=== PATIENT | female | born 1950 | race Caucasian/White ===

== ENCOUNTER 2017-05-07 18:32 | Inpatient (IN) | payer BC ==
[~2017-05-07 18:32] MED LIST: BUPR-175 PO; IBUP600T26 PO; LORTA10 PO; MUSCLE RELAXER
[2017-05-07] MEDS ORDERED: IOHEXOL 350 MG/ML 10 ML VIAL (for RAD DIAG) IVCONTRAST ONE (18:33)
[2017-05-07 18:45] VITALS: BP 120/80; PULSE 80; RESP 16; TEMP 98.4; O2SAT 98
[2017-05-07 19:27] VITALS: BP 122/56; PULSE 78; RESP 17; TEMP 98.6; O2SAT 97
[2017-05-07] MEDS ORDERED: ZOLO25TA PO (19:38)
[2017-05-07] MEDS ORDERED: TYLETAB34 PO (19:38)
[2017-05-07] MEDS ORDERED: SIMV5TAB3 PO (19:38)
[2017-05-07] MEDS ORDERED: MORPHINE SULFATE 4 MG/ML INJ IV PUSH ONE ×3 (19:45→23:00)
[2017-05-07] MEDS ORDERED: SODIUM CHLORIDE 0.9% FLUSH 10 ML FLUSH IV FLUSH PRN (19:45)
[2017-05-07] MEDS ORDERED: RESP: ALBUTEROL 2.5 MG/IPRATROPIUM 0.5 MG NEB (SCH) INH ONE (19:45)
[2017-05-07] MEDS ORDERED: ONDANSETRON HCL 4 MG/2 ML VIAL IVP ONE (19:45)
--- NOTE | 2017-05-07 19:45 | PD ---
HPI Chief Complaint: Abdominal Pain Time Seen by Provider: 19:36 Travel History International Travel<30 days: No Contact w/Intl Traveler<30days: No Traveled to known affect area: No History of Present Illness HPI Patient comes in complaining of crampy abdominal pain throughout her abdomen she awoke with this morning. Patient states when she woke she was unable stand on her right leg secondary to the pain. Patient's pain radiates to her back and throughout her abdomen. Patient reports associated nonbloody, nonbilious vomiting, and nonbloody diarrhea. Patient denies anything like this in the past. Denies any history of abdominal surgeries. Patient states she's tried taking her Tylenol with Codeine for this along with aspirin with no improvement in her symptoms. Patient has history of COPD but does not take her inhalers regularly. Patient denies any known fevers. Denies any chest pain, shortness of breath out of the ordinary, or headaches. Denies any loss or change in bladder. Denies any recent antibiotic use. PFSH Past Medical History Depression: Yes COPD: Yes Diminished Hearing: No Musculoskeletal: Yes (DEGENERATIVE DISKS) Psychiatric: Yes Respiratory: Yes (COPD) Immunizations Current: Yes Tetanus Vaccination: Unknown Influenza Vaccination: No ?: Not Menopausal: Yes : 0 Past Surgical History Hysterectomy: Yes Social History Alcohol Use: No Tobacco Use: Yes (09/15 PPW) Substance Use: No Allergies-Medications (Allergen,Severity, Reaction): Coded Allergies: No Known Allergies (Verified , 05/07/17) Reported Meds & Prescriptions Reported Meds & Active Scripts Active Reported Tylenol-Codeine #3 (Acetaminophen-Codeine) 300-30 mg Tab 1 Tab PO Q4H PRN Simvastatin 5 Mg Tab 5 Mg PO DAILY Zoloft (Sertraline HCl) 25 Mg Tab 25 Mg PO DAILY Review of Systems Except as stated in HPI: all other systems reviewed are Neg Physical Exam Narrative GENERAL: Well-developed, well nourished, in no acute distress, and non-ill appearing. SKIN: Focused skin assessment warm and dry. HEAD: Atraumatic. Normocephalic. EYES: Pupils equal and round. EOMI. No scleral icterus. No injection or drainage. ENT: No nasal bleeding or discharge. Mucous membranes pink and moist. NECK: Trachea midline. Supple. No nuclear rigidity. CARDIOVASCULAR: Regular rate and rhythm. No murmur appreciated. RESPIRATORY: No accessory muscle use. No respiratory distress. Wheezing noted throughout. Breath sounds equal bilaterally. GASTROINTESTINAL: Abdomen soft, nondistended, and with voluntary guarding. Hepatic and splenic margins not palpable. Hypoactive bowel sounds 4. No pulsatile mass. Patient reports tenderness greatest in the right lower quadrant and McBurney's point. However patient reports tenderness to palpation throughout her abdomen. MUSCULOSKELETAL: No obvious deformities. No clubbing. No cyanosis. No edema. Full range of motion. NEUROLOGICAL: Awake and alert. No obvious cranial nerve deficits. Motor grossly within normal limits. Normal speech. PSYCHIATRIC: Appropriate mood and affect; insight and judgment normal. Data Data Last Documented VS Vital Signs Date Time Temp Pulse Resp B/P (MAP) Pulse Ox O2 Delivery O2 Flow Rate FiO2 05/07/17 20:29 89 Nasal Cannula 2.00 05/07/17 20:23 20 05/07/17 19:27 98.6 78 Orders Orders Complete Blood Count With Diff (05/07/17 19:36) Comprehensive Metabolic Panel (05/07/17 19:36) Lipase (05/07/17 19:36) Lactic Acid (05/07/17 19:36) Prothrombin Time / Inr (Pt) (05/07/17 19:36) Act Partial Throm Time (Ptt) (05/07/17 19:36) Urinalysis - C+S If Indicated (05/07/17 19:36) Ct Abd/Pel W Iv Contrast(Rout) (05/07/17 19:36) Iv Access Insert/Monitor (05/07/17 19:36) Ecg Monitoring (05/07/17 19:36) Oximetry (05/07/17 19:36) NPO (05/07/17 19:36) Morphine Inj (Morphine Inj) (05/07/17 19:45) Ondansetron Inj (Zofran Inj) (05/07/17 19:45) Sodium Chloride 0.9% Flush (Ns Flush) (05/07/17 19:45) Electrocardiogram (05/07/17 19:36) Chest, Single Ap (05/07/17 19:36) Albuterol-Ipratropium Neb (Duoneb Neb) (05/07/17 19:45) Morphine Inj (Morphine Inj) (05/07/17 20:45) Troponin I (05/07/17 19:55) Iohexol 350 Inj (Omnipaque 350 Inj) (05/07/17 18:33) Labs Laboratory Tests Test 05/07/17 19:55 05/07/17 20:50 White Blood Count 14.8 TH/MM3 Red Blood Count 4.63 MIL/MM3 Hemoglobin 13.9 GM/DL Hematocrit 42.5 % Mean Corpuscular Volume 91.7 FL Mean Corpuscular Hemoglobin 29.9 PG Mean Corpuscular Hemoglobin Concent 32.6 % Red Cell Distribution Width 13.8 % Platelet Count 207 TH/MM3 Mean Platelet Volume 8.5 FL Neutrophils (%) (Auto) 90.4 % Lymphocytes (%) (Auto) 4.3 % Monocytes (%) (Auto) 5.0 % Eosinophils (%) (Auto) 0.0 % Basophils (%) (Auto) 0.3 % Neutrophils # (Auto) 13.3 TH/MM3 Lymphocytes # (Auto) 0.6 TH/MM3 Monocytes # (Auto) 0.7 TH/MM3 Eosinophils # (Auto) 0.0 TH/MM3 Basophils # (Auto) 0.0 TH/MM3 CBC Comment DIFF FINAL Differential Comment Prothrombin Time 10.8 SEC Prothromb Time International Ratio 1.0 RATIO Activated Partial Thromboplast Time 25.0 SEC Blood Urea Nitrogen 19 MG/DL Creatinine 1.05 MG/DL Random Glucose 116 MG/DL Total Protein 7.9 GM/DL Albumin 4.1 GM/DL Calcium Level 8.9 MG/DL Alkaline Phosphatase 81 U/L Aspartate Amino Transf (AST/SGOT) 19 U/L Alanine Aminotransferase (ALT/SGPT) 23 U/L Total Bilirubin 0.6 MG/DL Sodium Level 138 MEQ/L Potassium Level 3.4 MEQ/L Chloride Level 105 MEQ/L Carbon Dioxide Level 25.3 MEQ/L Anion Gap 8 MEQ/L Estimat Glomerular Filtration Rate 53 ML/MIN Lactic Acid Level 1.4 mmol/L Troponin I LESS THAN 0.02 NG/ML Lipase 84 U/L Urine Color YELLOW Urine Turbidity HAZY Urine pH 6.0 Urine Specific [place] 1.039 Urine Protein 30 mg/dL Urine Glucose (UA) NEG mg/dL Urine Ketones 10 mg/dL Urine Occult Blood NEG Urine Nitrite NEG Urine Bilirubin NEG Urine Urobilinogen 2.0 MG/DL Urine Leukocyte Esterase NEG Urine RBC 1 /hpf Urine WBC 1 /hpf Urine Squamous Epithelial Cells 6 /hpf Urine Bacteria RARE /hpf Urine Hyaline Casts 3 /lpf Urine Mucus FEW /lpf Microscopic Urinalysis Comment CULT NOT INDICATED MDM Medical Decision Making Medical Screen Exam Complete: Yes Emergency Medical Condition: Yes Differential Diagnosis Appendicitis, ischemic bowel, small bowel obstruction, diverticulitis, electrolyte abnormality, dehydration, ileus, obstipation, other Narrative Course Patient was seen and examined. IV was established. Patient was greater monitored. Initial laboratory and radiological studies were ordered. Laboratory studies were reviewed. Patient was given IV morphine for pain and Zofran for nausea. Patient was signed out to Dr. Castro at the end of my shift pending CT results. Please see her documentation for final diagnosis and disposition. Paul Brice May 07, 2017 19:45
[2017-05-07 20:11] LABS: AUTOMATED NEUTROPHIL # 13.3 TH/MM3 (1.8-7.7); BASOPHIL % 0.3 % (0.0-2.0); HEMATOCRIT 42.5 % (35.0-46.0); HEMO FLAGS DIFF FINAL; LYMPH % 4.3 % (9.0-44.0); LYMPHOCYTE # 0.6 TH/MM3 (1.0-4.8); MEAN CELL VOLUME 91.7 FL (80.0-100.0); MEAN CORPUSCULAR HEMOGLOBIN 29.9 PG (27.0-34.0); MEAN CORPUSCULAR HGB CONC 32.6 % (32.0-36.0); NEUT % 90.4 % (16.0-70.0); PLATELET COUNT 207 TH/MM3 (150-450); RED BLOOD COUNT 4.63 MIL/MM3 (4.00-5.30); RED CELL DISTRIBUTION WIDTH 13.8 % (11.6-17.2); WHITE BLOOD COUNT 14.8 TH/MM3 (4.0-11.0)
[2017-05-07 20:20] LABS: PROTHROMBIN TIME - PATIENT 10.8 SEC (9.8-11.6)
[2017-05-07 20:23] VITALS: RESP 20; O2SAT 89
[2017-05-07 20:29] VITALS: O2SAT 89
[2017-05-07 20:35] LABS: ALT (GPT) 23 U/L (10-53); ANION GAP 8 MEQ/L (5-15); AST (GOT) 19 U/L (15-37); BICARBONATE 25.3 MEQ/L (21.0-32.0); BLOOD UREA NITROGEN 19 MG/DL (7-18); CHLORIDE 105 MEQ/L (98-107); GLOMERULAR FILTRATION RATE 53 ML/MIN (>89); POTASSIUM 3.4 MEQ/L (3.5-5.1); SODIUM (NA) 138 MEQ/L (136-145)
[2017-05-07 20:38] LABS: ALKALINE PHOSPHATASE 81 U/L (45-117); TOTAL BILIRUBIN ADULT 0.6 MG/DL (0.2-1.0)
--- NOTE | 2017-05-07 20:52 | PD ---
Physical Exam Narrative I, Dr. Castro, have reviewed the advance practice practitioner's documentation and am in agreement, met with the patient face to face, made the diagnosis, and the medical decision making was done by me. *My assessment and Findings: Appendicitis vs. colitis vs. atypical ACS 66yo F with lower abdominal pain and nausea and vomiting today. Abdomen is soft with ttp diffusely in lower abdomen. Pt has COPD and has coarse breath sounds bilaterally. Denies any chest pain or sob. Pt given nebulizer treatment. Think that this is her baseline. Although her O2 is at 89% on RA. Pt placed on 2 L NC and appears comfortable. CXR negative. Labs reviewed, leukocytosis at 14.8. Lactic acid 1.4. LFTs normal. Lipase normal. EKG does show ST depressions in V3-V4 and TWI V2. No prior to compare. Added troponin for atypical ACS. Troponin negative. UA negative. CXR negative. CTa/p showed no acute abnormality. Possible small hiatal hernia. Normal appendix. Pt given multiple IV morphine and is still in a lot of pain. States she lives alone, is unable to ambulate due to pain and cannot even stand. Will admit for observation for intractable pain. Discussed with Dr. Cowart's PA and accepted to his service. Data Data Last Documented VS Vital Signs Date Time Temp Pulse Resp B/P (MAP) Pulse Ox O2 Delivery O2 Flow Rate FiO2 05/07/17 23:20 92 18 118/78 (91) 95 Nasal Cannula 2.00 05/07/17 19:27 98.6 Orders Orders Complete Blood Count With Diff (05/07/17 19:36) Comprehensive Metabolic Panel (05/07/17 19:36) Lipase (05/07/17 19:36) Lactic Acid (05/07/17 19:36) Prothrombin Time / Inr (Pt) (05/07/17 19:36) Act Partial Throm Time (Ptt) (05/07/17 19:36) Urinalysis - C+S If Indicated (05/07/17 19:36) Ct Abd/Pel W Iv Contrast(Rout) (05/07/17 19:36) Iv Access Insert/Monitor (05/07/17 19:36) Ecg Monitoring (05/07/17 19:36) Oximetry (05/07/17 19:36) NPO (05/07/17 19:36) Morphine Inj (Morphine Inj) (05/07/17 19:45) Ondansetron Inj (Zofran Inj) (05/07/17 19:45) Sodium Chloride 0.9% Flush (Ns Flush) (05/07/17 19:45) Electrocardiogram (05/07/17 19:36) Chest, Single Ap (05/07/17 19:36) Albuterol-Ipratropium Neb (Duoneb Neb) (05/07/17 19:45) Morphine Inj (Morphine Inj) (05/07/17 20:45) Troponin I (05/07/17 19:55) Iohexol 350 Inj (Omnipaque 350 Inj) (05/07/17 18:33) Morphine Inj (Morphine Inj) (05/07/17 23:00) Admit Order (Ed Use Only) (05/07/17 23:47) Labs Laboratory Tests Test 05/07/17 19:55 05/07/17 20:50 White Blood Count 14.8 TH/MM3 Red Blood Count 4.63 MIL/MM3 Hemoglobin 13.9 GM/DL Hematocrit 42.5 % Mean Corpuscular Volume 91.7 FL Mean Corpuscular Hemoglobin 29.9 PG Mean Corpuscular Hemoglobin Concent 32.6 % Red Cell Distribution Width 13.8 % Platelet Count 207 TH/MM3 Mean Platelet Volume 8.5 FL Neutrophils (%) (Auto) 90.4 % Lymphocytes (%) (Auto) 4.3 % Monocytes (%) (Auto) 5.0 % Eosinophils (%) (Auto) 0.0 % Basophils (%) (Auto) 0.3 % Neutrophils # (Auto) 13.3 TH/MM3 Lymphocytes # (Auto) 0.6 TH/MM3 Monocytes # (Auto) 0.7 TH/MM3 Eosinophils # (Auto) 0.0 TH/MM3 Basophils # (Auto) 0.0 TH/MM3 CBC Comment DIFF FINAL Differential Comment Prothrombin Time 10.8 SEC Prothromb Time International Ratio 1.0 RATIO Activated Partial Thromboplast Time 25.0 SEC Blood Urea Nitrogen 19 MG/DL Creatinine 1.05 MG/DL Random Glucose 116 MG/DL Total Protein 7.9 GM/DL Albumin 4.1 GM/DL Calcium Level 8.9 MG/DL Alkaline Phosphatase 81 U/L Aspartate Amino Transf (AST/SGOT) 19 U/L Alanine Aminotransferase (ALT/SGPT) 23 U/L Total Bilirubin 0.6 MG/DL Sodium Level 138 MEQ/L Potassium Level 3.4 MEQ/L Chloride Level 105 MEQ/L Carbon Dioxide Level 25.3 MEQ/L Anion Gap 8 MEQ/L Estimat Glomerular Filtration Rate 53 ML/MIN Lactic Acid Level 1.4 mmol/L Troponin I LESS THAN 0.02 NG/ML Lipase 84 U/L Urine Color YELLOW Urine Turbidity HAZY Urine pH 6.0 Urine Specific [place] 1.039 Urine Protein 30 mg/dL Urine Glucose (UA) NEG mg/dL Urine Ketones 10 mg/dL Urine Occult Blood NEG Urine Nitrite NEG Urine Bilirubin NEG Urine Urobilinogen 2.0 MG/DL Urine Leukocyte Esterase NEG Urine RBC 1 /hpf Urine WBC 1 /hpf Urine Squamous Epithelial Cells 6 /hpf Urine Bacteria RARE /hpf Urine Hyaline Casts 3 /lpf Urine Mucus FEW /lpf Microscopic Urinalysis Comment CULT NOT INDICATED MDM Supervised Visit with LUPILLO: Yes Diagnosis Primary Impression: Abdominal pain Qualified Codes: R10.30 - Lower abdominal pain, unspecified Admitting Information Admitting Physician Requests: Cori Tripathi DO May 07, 2017 20:52
--- NOTE | 2017-05-07 20:59 | RADRPT ---
EXAM DATE/TIME: 05/07/2017 19:32 [facility] COMPARISON: No previous studies available for comparison. INDICATIONS : Vomiting MEDICAL HISTORY : None. SURGICAL HISTORY : None. ENCOUNTER: Initial ACUITY: 1 day PAIN SCORE: 0/10 LOCATION: chest FINDINGS: A single view of the chest demonstrates the lungs to be symmetrically aerated without evidence of mas s, infiltrate or effusion. The cardiomediastinal contours are unremarkable. Osseous structures are intact. CONCLUSION: Normal examination. Claus Hill MD on May 07, 2017 at 20:57 Board Certified Radiologist. This report was verified electronically.
[2017-05-07 21:23] LABS: BACTERIA, URINE RARE /hpf; BLOOD, URINE NEG (NEG); COMMENT (UR) CULT NOT INDICATED; CULTURE IF INDICATED CULT NOT INDICATED; GLUCOSE,URINE NEG (NEG); HYALINE CAST, URINE 3 /lpf (RARE); KETONE, URINE 10 mg/dL (NEG); MUCUS URINE FEW /lpf (OCC); NITRITE,URINE NEG (NEG); SQUAMOUS EPITHELIAL CELL URINE 6 /hpf (0-5); URINE COLOR YELLOW (YELLW/STRAW)
--- NOTE | 2017-05-07 22:58 | RADRPT ---
EXAM DATE/TIME: 05/07/2017 21:28 [facility] COMPARISON: No previous studies available for comparison. INDICATIONS : Lower abdominal and hip pain with vomiting. IV CONTRAST: 95 cc Omnipaque 350 (iohexol) IV ORAL CONTRAST: No oral contrast ingested. RADIATION DOSE: 6.69 CTDIvol (mGy) MEDICAL HISTORY : Chronic obstructive pulmonary disease. SURGICAL HISTORY : Hysterectomy. ENCOUNTER: Initial ACUITY: 1 day PAIN SCALE: 6/10 LOCATION: Bilateral lower quadrant TECHNIQUE: Volumetric scanning of the abdomen and pelvis was performed. Using automated exposure control and ad justment of the mA and/or kV according to patient size, radiation dose was kept as low as reasonably achievable to obtain optimal diagnostic quality images. DICOM format image data is available electro nically for review and comparison. FINDINGS: LOWER LUNGS: The visualized lower lungs are clear. LIVER: Homogeneous density without lesion. There is no dilation of the biliary tree. No calcified gallston es. SPLEEN: Normal size without lesion. PANCREAS: Within normal limits. KIDNEYS: Normal in size and shape. There is no mass, stone or hydronephrosis. ADRENAL GLANDS: Within normal limits. VASCULAR: There is no aortic aneurysm. BOWEL/MESENTERY: The stomach, small bowel, and colon demonstrate no acute abnormality. There is no free intraperitone al air or fluid. The appendix appears normal. There does appear to be a small hiatal hernia present. ABDOMINAL WALL: Within normal limits. RETROPERITONEUM: There is no lymphadenopathy. BLADDER: No wall thickening or mass. REPRODUCTIVE: The patient is status post hysterectomy. No pelvic mass is seen. INGUINAL: There is no lymphadenopathy or hernia. MUSCULOSKELETAL: Within normal limits for patient age. CONCLUSION: 1. No acute abnormality seen. 2. Possible small hiatal hernia. Claus Hill MD on May 07, 2017 at 22:54 Board Certified Radiologist. This report was verified electronically.
[2017-05-07 23:20] VITALS: BP 118/78; PULSE 92; RESP 18; O2SAT 95
[2017-05-07] MEDS ORDERED: SODIUM CHLOR 0.9% 1000 ML INJ 1,000 ML IV SCH (23:41)
[2017-05-07] MEDS ORDERED: ONDANSETRON HCL 4 MG/2 ML VIAL IV PRN (23:45)
[2017-05-07] MEDS ORDERED: ACETAMINOPHEN 650 MG SUPP RECTAL PRN (23:45)
[2017-05-08] VITALS (12 sets, daily range): BP systolic 121–159; BP diastolic 64–91; PULSE 79–89; RESP 18–21; TEMP 97.2–101; O2SAT 95–98
[2017-05-08] MEDS ORDERED: RESP: ALBUTEROL 2.5 MG/IPRATROPIUM 0.5 MG NEB (PRN) NEB ×2 (00:15→06:30)
[2017-05-08] MEDS ORDERED: PILL SPLITTER OTHER PRN (00:15)
[2017-05-08] MEDS: MORPHINE SULFATE 4 MG/ML INJ IV PUSH PRN ×8 (01:51→22:32)
--- NOTE | 2017-05-08 06:49 | HHI.HP ---
History of Present Illness Service Family Medicine Primary Care Physician Garland Cowart, DO Admission Diagnosis Intractable abdominal pain Diagnoses: History of Present Illness Patient is a year old female who presented to the ER with intractable abdominal pain for 1 day. The pain woke her up in the morning. Patient denies anything like this in the past. Denies any history of abdominal surgeries. Reports nausea and vomiting. Patient states she's tried taking her Tylenol with Codeine for this along with aspirin with no improvement in her symptoms. Patient has history of COPD, depression, and HLD. Patient denies any known fevers, recent illness or falls. Denies any chest pain or shortness of breath. Denies any loss or change in bladder. Denies any recent antibiotic use. During exam pain seems spasmodic radiating to the back. GI is consulted and will also obtain imaging of back. Review of Systems Gastrointestinal: COMPLAINS OF: Abdominal pain, Nausea, Vomiting, DENIES: Black stools, Bloody stools, Difficulty Swallowing Genitourinary: DENIES: Urinary frequency, Urinary incontinence Musculoskeletal: COMPLAINS OF: Muscle aches, Back pain Psychiatric: COMPLAINS OF: Anxiety, Depression Past Family Social History Allergies: Coded Allergies: No Known Allergies (Verified , 05/07/17) Past Medical History Depression HLD chronic back pain Tobacco abuse COPD Past Surgical History Hysterectomy Active Ordered Medications Current Medications Medications (Trade) Dose Ordered Sig/Misael Route Start Time Stop Time Status Last Admin (NS Flush) 2 ml UNSCH PRN IV FLUSH 05/07/17 19:45 (Zofran Inj) 4 mg Q6H PRN IV 05/07/17 23:45 (Tylenol) 650 mg Q4H PRN PO 05/07/17 23:45 (Tylenol Supp) 650 mg Q4H PRN RECTAL 05/07/17 23:45 (Morphine Inj) 2 mg Q2H PRN IV PUSH 05/07/17 23:45 05/08/17 04:13 (Protonix Inj) 40 mg DAILY IVP 05/08/17 09:00 Sodium Chloride 1,000 ml @ 125 mls/hr Q8H IV 05/07/17 23:41 05/08/17 07:40 (Duoneb Neb) 1 ampule Q4HR NEB PRN NEB 05/08/17 00:15 (Zoloft) 25 mg DAILY PO 05/08/17 09:00 (Pravachol) 10 mg DAILY PO 05/08/17 09:00 (Pill Splitter) 1 ea UNSCH PRN OTHER 05/08/17 00:15 Family History Mother with Alzheimer Father with heart disease Social History Smokes daily Denies ETOH use Lives alone Retired pressroom worker Physical Exam Vital Signs Vital Signs Date Time Temp Pulse Resp B/P (MAP) Pulse Ox O2 Delivery O2 Flow Rate FiO2 05/08/17 05:15 98.5 82 18 152/71 (98) 96 05/08/17 01:10 101 22 135/68 (90) 96 Nasal Cannula 2.00 05/08/17 00:06 95 Nasal Cannula 2.00 05/07/17 23:20 92 18 118/78 (91) 95 Nasal Cannula 2.00 05/07/17 20:29 89 Nasal Cannula 2.00 05/07/17 20:23 20 89 Room Air 05/07/17 19:28 18 05/07/17 19:27 98.6 78 17 122/56 (78) 97 Room Air 05/07/17 18:45 98.4 80 16 120/80 (93) 98 Physical Exam GENERAL: This is a well-nourished and well-developed patient in mild distress SKIN: No rashes, ecchymoses or lesions. Cool and dry. HEAD: Atraumatic. Normocephalic. No temporal or scalp tenderness. CARDIOVASCULAR: Regular rate and rhythm without murmurs, gallops, or rubs. RESPIRATORY: Clear to auscultation. Breath sounds equal bilaterally. No wheezes , rales, or rhonchi. GASTROINTESTINAL: Abdomen soft, mildly tender, nondistended. No hepato- splenomegaly, or palpable masses. No guarding. MUSCULOSKELETAL: Extremities without clubbing, cyanosis, or edema. No joint tenderness, effusion, or edema noted. No calf tenderness. Negative Homans sign bilaterally. NEUROLOGICAL: Awake and alert. Five out of 5 muscle strength in all muscle groups. Normal speech. Laboratory Laboratory Tests Test 05/07/17 19:55 05/07/17 20:50 White Blood Count 14.8 Red Blood Count 4.63 Hemoglobin 13.9 Hematocrit 42.5 Mean Corpuscular Volume 91.7 Mean Corpuscular Hemoglobin 29.9 Mean Corpuscular Hemoglobin Concent 32.6 Red Cell Distribution Width 13.8 Platelet Count 207 Mean Platelet Volume 8.5 Neutrophils (%) (Auto) 90.4 Lymphocytes (%) (Auto) 4.3 Monocytes (%) (Auto) 5.0 Eosinophils (%) (Auto) 0.0 Basophils (%) (Auto) 0.3 Neutrophils # (Auto) 13.3 Lymphocytes # (Auto) 0.6 Monocytes # (Auto) 0.7 Eosinophils # (Auto) 0.0 Basophils # (Auto) 0.0 CBC Comment DIFF FINAL Differential Comment Prothrombin Time 10.8 Prothromb Time International Ratio 1.0 Activated Partial Thromboplast Time 25.0 Blood Urea Nitrogen 19 Creatinine 1.05 Random Glucose 116 Total Protein 7.9 Albumin 4.1 Calcium Level 8.9 Alkaline Phosphatase 81 Aspartate Amino Transf (AST/SGOT) 19 Alanine Aminotransferase (ALT/SGPT) 23 Total Bilirubin 0.6 Sodium Level 138 Potassium Level 3.4 Chloride Level 105 Carbon Dioxide Level 25.3 Anion Gap 8 Estimat Glomerular Filtration Rate 53 Lactic Acid Level 1.4 Troponin I LESS THAN 0.02 Lipase 84 Urine Color YELLOW Urine Turbidity HAZY Urine pH 6.0 Urine Specific [place] 1.039 Urine Protein 30 Urine Glucose (UA) NEG Urine Ketones 10 Urine Occult Blood NEG Urine Nitrite NEG Urine Bilirubin NEG Urine Urobilinogen 2.0 Urine Leukocyte Esterase NEG Urine RBC 1 Urine WBC 1 Urine Squamous Epithelial Cells 6 Urine Bacteria RARE Urine Hyaline Casts 3 Urine Mucus FEW Microscopic Urinalysis Comment CULT NOT INDICATED Result Diagram: 05/07/17195405/07/171954 Imaging Last 72 hours Impressions Chest X-Ray 05/07/171935 Signed Impressions: Service Date/Time: Sunday, May 07, 2017 19:32 - CONCLUSION: Normal examination. Claus Hill MD Abdomen/Pelvis CT 05/07/171935 Signed Impressions: Service Date/Time: Sunday, May 07, 2017 21:28 - CONCLUSION: 1. No acute abnormality seen. 2. Possible small hiatal hernia. MD Gil Pinto VTE Risk Assessment Gil VTE Risk Assessment: Mod/High Risk (score >= 2) Caprini Risk Assessment Model Point Value = 1 Point Value = 2 Point Value = 3 Point Value = 5 Age 41-60 Minor surgery BMI > 25 kg/m2 Swollen legs Varicose veins or History of unexplained or recurrent spontaneous Oral contraceptives or hormone replacement Sepsis (< 1 month) Serious lung disease, including pneumonia (< 1 month) Abnormal pulmonary function Acute myocardial infarction Congestive heart failure (< 1 month) History of inflammatory bowel disease Medical patient at bed rest Age 61-74 Arthroscopic surgery Major open surgery (> 45 min) Laparoscopic surgery (> 45 min) Malignancy Confined to bed (> 72 hours) Immobilizing plaster cast Central venous access Age >= 75 History of VTE Family history of VTE Factor V Leiden Prothrombin [id number] Lupus anticoagulant Anticardiolipin antibodies Elevated serum homocysteine Heparin-induced thrombocytopenia Other congenital or acquired thrombophilia Stroke (< 1 month) Elective arthroplasty Hip, pelvis, or leg fracture Acute spinal cord injury (< 1 month) Prophylaxis Regimen Total Risk Factor Score Risk Level Prophylaxis Regimen 0-1 Low Early ambulation 2 Moderate Order ONE of the following: *Sequential Compression Device (SCD) *Heparin 5000 units SQ BID 3-4 Higher Order ONE of the following medications: *Heparin 5000 units SQ TID *Enoxaparin/Lovenox 40 mg SQ daily (WT < 150 kg, CrCl > 30 mL/min) *Enoxaparin/Lovenox 30 mg SQ daily (WT < 150 kg, CrCl > 10-29 mL/min) *Enoxaparin/Lovenox 30 mg SQ BID (WT < 150 kg, CrCl > 30 mL/min) AND/OR *Sequential Compression Device (SCD) 5 or more Highest Order ONE of the following medications: *Heparin 5000 units SQ TID (Preferred with Epidurals) *Enoxaparin/Lovenox 40 mg SQ daily (WT < 150 kg, CrCl > 30 mL/min) *Enoxaparin/Lovenox 30 mg SQ daily (WT < 150 kg, CrCl > 10-29 mL/min) *Enoxaparin/Lovenox 30 mg SQ BID (WT < 150 kg, CrCl > 30 mL/min) AND *Sequential Compression Device (SCD) Assessment and Plan Problem List: (1) Abdominal pain ICD Codes: R10.9 - Unspecified abdominal pain (2) Back pain ICD Codes: M54.9 - Dorsalgia, unspecified (3) Depression ICD Codes: F32.9 - Major depressive disorder, single episode, unspecified (4) Tobacco abuse ICD Codes: Z72.0 - Tobacco use (5) COPD (chronic obstructive pulmonary disease) with acute bronchitis ICD Codes: J44.0 - Chronic obstructive pulmonary disease with acute lower respiratory infection Assessment and Plan 05/08/17 Abdominal pain- GI consulted Presented to ED with abdominal pain for 1 day. Nausea and vomiting reported. The pain was so intense that she was awaken from sleep. She was not able to even stand initially and crawled to bathroom. Abdomen only mildly tender on palpation no guarding present. Pain spasmatic radiating to back. Has morphine for pain. CT of abdomen with no acute abnormality found. Small hiatal hernia. On IV Protonix and IVF's. Zofran PRN Back pain: Patient with pain radiating to back. Is spasmodic in nature. No fall reported. Will order muscle relaxer and imaging. COPD with acute bronchitis- Lung sounds are rhonchi and WBC elevated at 14.3 will start Azithromycin and breathing treatments. Depression - continue zoloft. Reported that her mother on April 10 and she has been very depressed. HLD- continue statin DVT and GI prophylaxis ordered. I and the TECHNICAL SUPPORT AGENT have both examined this patient and reviewed this note and I agree with these findings and plan of care. Hawa Reilly. TECHNICAL SUPPORT AGENT May 08, 2017 06:49
[2017-05-08 07:24] LABS: AUTOMATED NEUTROPHIL # 15.7 TH/MM3 (1.8-7.7); BASOPHIL % 0.1 % (0.0-2.0); HEMATOCRIT 39.6 % (35.0-46.0); HEMO FLAGS DIFF FINAL; LYMPH % 3.6 % (9.0-44.0); LYMPHOCYTE # 0.6 TH/MM3 (1.0-4.8); MEAN CELL VOLUME 91.4 FL (80.0-100.0); MEAN CORPUSCULAR HEMOGLOBIN 30.9 PG (27.0-34.0); MEAN CORPUSCULAR HGB CONC 33.8 % (32.0-36.0); NEUT % 90.3 % (16.0-70.0); PLATELET COUNT 171 TH/MM3 (150-450); RED BLOOD COUNT 4.34 MIL/MM3 (4.00-5.30); RED CELL DISTRIBUTION WIDTH 13.7 % (11.6-17.2); WHITE BLOOD COUNT 17.4 TH/MM3 (4.0-11.0)
[2017-05-08 07:36] LABS: ALT (GPT) 20 U/L (10-53); ANION GAP 13 MEQ/L (5-15); AST (GOT) 14 U/L (15-37); BICARBONATE 24.4 MEQ/L (21.0-32.0); BLOOD UREA NITROGEN 14 MG/DL (7-18); CHLORIDE 101 MEQ/L (98-107); GLOMERULAR FILTRATION RATE 58 ML/MIN (>89); POTASSIUM 3.3 MEQ/L (3.5-5.1); SODIUM (NA) 138 MEQ/L (136-145)
[2017-05-08 07:38] LABS: ALKALINE PHOSPHATASE 78 U/L (45-117); TOTAL BILIRUBIN ADULT 0.5 MG/DL (0.2-1.0)
[2017-05-08] MEDS: CYCLOBENZAPRINE HCL 10 MG TAB PO PRN (07:45)
[2017-05-08] MEDS: NICOTINE 21 MG/24 HR PATCH TD SCH (08:50)
[2017-05-08] MEDS: AZITHROMYCIN 250 MG TAB PO SCH (08:51)
[2017-05-08] MEDS: SERTRALINE HCL 50 MG TAB PO SCH (08:51)
[2017-05-08] MEDS: PANTOPRAZOLE SODIUM 40 MG VIAL IVP SCH (08:51)
[2017-05-08] MEDS: ENOXAPARIN SODIUM 40 MG/0.4 ML SYRINGE SQ SCH (08:51)
--- NOTE | 2017-05-08 13:07 | EKG ---
Date Performed: 05/07/2017 Time Performed: 20:24:18 PTAGE: 66 years EKG: Sinus rhythm WITH SHORT TN INTERVAL INCOMPLETE RIGHT BUNDLE BRANCH BLOCK NONSPECIFIC T-WAVE ABNORMALITY BORDERLIN E ECG NO PREVIOUS TRACING DOCTOR: Colleen Pena Interpretating Date/Time 05/08/2017 13:05:14
[2017-05-08] MEDS: cloNIDine HCL 0.1 MG TAB PO SCH ×2 (13:08→22:30)
[2017-05-08] MEDS: POTASSIUM CHLORIDE 20 MEQ CONTROLLED RELEASE TAB PO SCH ×2 (13:08→22:30)
[2017-05-08] MEDS ORDERED: fentaNYL 25 MCG/HR PATCH T-DERMAL SCH (14:00)
--- NOTE | 2017-05-08 14:32 | RADRPT ---
EXAM DATE/TIME: 05/08/2017 13:59 [place] COMPARISON: No previous studies available for comparison. INDICATIONS : Pain. MEDICAL HISTORY : Chronic obstructive pulmonary disease. Chronic back pain. SURGICAL HISTORY : Hysterectomy. ENCOUNTER: Initial ACUITY: 2 day PAIN SCORE: 5/10 LOCATION: back TECHNIQUE: Multiplanar multisequence MRI of the lumbar spine was performed without contrast. FINDINGS: The most caudal appearing lumbar vertebra is numbered as L5. VERTEBRAE: Homogeneous signal. Normal alignment. CONUS: Normal level and configuration. T12-L1: The thecal sac has a normal diameter. No evidence of disc bulge or protrusion. The neural foramina are patent bilaterally. L1-L2: The thecal sac has a normal diameter. No evidence of disc bulge or protrusion. The neural foramina are patent bilaterally. L2-L3: There is disc space narrowing and disc desiccation with a mild broad-based bulge. Lateral recesses an d central canal are patent. Moderate bony hypertrophy of the facet joints. Neural foramina are patent bilaterally. L3-L4: There is disc desiccation with mild loss of height and broad-based bulge. Moderate bony hypertrophy o f the facet joints with narrowing of the central canal. Anterior to posterior dimension of the thecal space in the midline is 11 mm. Mild narrowing of the lateral recesses without impingement. Neural fo ramina show moderate narrowing bilaterally but more pronounced on the right without overt impingement of either L3 nerve root. L4-L5: There is disc desiccation with significant disc space height loss. A mild broad-based bulge. Mild lig amentum flavum hypertrophy and bony hypertrophy of the facets. Lateral recesses and central canal are patent. Narrowing of the right neural foramen with the disc just touching the anterior margin of the right L4 nerve root. Left neural foramen is patent. L5-S1: The thecal sac has a normal diameter. No evidence of disc bulge or protrusion. The neural foramina are patent bilaterally. CONCLUSION: 1. Scattered degenerative changes. Most pronounced at L4-L5 with abutment of the right L4 nerve root within the neural foramen and potential source for right L4 radiculopathy. Each level detailed in the above discussion. Luigi Nolen Jr., MD on May 08, 2017 at 14:23 Board Certified Radiologist. This report was verified electronically.
--- NOTE | 2017-05-08 17:35 | PD.CONS ---
HPI History of Present Illness This is a 66 year old female who came to the ER for evaluation of back pain that radiated around into her abdomen. She states that when she woke up yesteday morning, she couldn't hardly stand without the pain. She describes this as a shooting/cramping/excruciating pain that is intermittent. This is related to movement and not food. She states she has a long history of back problems and states that she overdid it "and threw my back out." She reports that she is taking Tylenol #3 for her pain, but that it does not seem to help. She reports that she did vomit one time, but states this was related to the pain in her back and that she has not had any further nausea or vomiting. She denies any heartburn, reflux, diarrhea, melena, or hematochezia. She does have occasional constipation related to decreased mobility and pain medicines. (Brandee Nguyen) PFSH Past Medical History COPD Depression Hyperlipidemia HTN Chronic back pain Past Surgical History Hysterectomy Surgery for dislocated shoulder (Brandee Nguyen) Coded Allergies: No Known Allergies (Verified , 05/07/17) Medications Allergies Coded Allergies Type Severity Reaction Last Updated Verified No Known Allergies 05/07/17 Yes Active Scripts Medications Dose Route/Sig Max Daily Dose Days Date Category Tylenol-Codeine #3 (Acetaminophen-Codeine) 300-30 mg Tab 1 Tab PO Q4H PRN 05/07/17 Reported Simvastatin 5 Mg Tab 5 Mg PO DAILY 05/07/17 Reported Zoloft (Sertraline HCl) 25 Mg Tab 25 Mg PO DAILY 05/07/17 Reported Family History Mother from Alzheimer's. Father had heart disease Social History 1.5-2 PPD tobacco No ETOH use (Brandee Nguyen) Review of Systems Constitutional: COMPLAINS OF: Fatigue Respiratory: COMPLAINS OF: Cough, DENIES: Shortness of breath Gastrointestinal: COMPLAINS OF: Abdominal pain, Constipation, Nausea, Vomiting , DENIES: Black stools, Bloody stools, Diarrhea, Swelling of Abdomen, Heartburn , Hematemesis Musculoskeletal: COMPLAINS OF: Back pain Integumentary: DENIES: Abnormal pigmentation Hematologic/lymphatic: DENIES: Bruising Neurologic: DENIES: Headache Psychiatric: DENIES: Confusion (Brandee Nguyen) GI Exam Vitals I&O Vital Signs Date Time Temp Pulse Resp B/P (MAP) Pulse Ox O2 Delivery O2 Flow Rate FiO2 05/08/17 15:50 101.0 89 21 121/91 (101) 98 05/08/17 15:26 18 05/08/17 13:13 18 05/08/17 12:39 86 05/08/17 11:55 97.2 89 18 149/65 (93) 97 05/08/17 08:21 96 Nasal Cannula 2.00 05/08/17 08:00 86 05/08/17 07:49 97.9 85 21 159/74 (102) 98 05/08/17 05:15 98.5 82 18 152/71 (98) 96 05/08/17 01:10 101 22 135/68 (90) 96 Nasal Cannula 2.00 05/08/17 00:06 95 Nasal Cannula 2.00 05/07/17 23:20 92 18 118/78 (91) 95 Nasal Cannula 2.00 05/07/17 20:29 89 Nasal Cannula 2.00 05/07/17 20:23 20 89 Room Air 05/07/17 19:28 18 05/07/17 19:27 98.6 78 17 122/56 (78) 97 Room Air 05/07/17 18:45 98.4 80 16 120/80 (93) 98 I/O 05/07/17 05/07/17 05/07/17 05/08/17 05/08/17 05/08/17 07:00 15:00 23:00 07:00 15:00 23:00 Intake Total 240 ml Output Total 60 ml Balance -60 ml 240 ml Intake Oral 240 ml Output Urine Total 60 ml # Voids 1 1 5 # Bowel Movements 0 Imaging Last Impressions Lumbar Spine MRI 05/08/17 0000 Signed Impressions: Service Date/Time: Monday, May 08, 2017 13:59 - CONCLUSION: 1. Scattered degenerative changes. Most pronounced at L4-L5 with abutment of the right L4 nerve root within the neural foramen and potential source for right L4 radiculopathy. Each level detailed in the above discussion. Luigi Nolen Jr., MD Chest X-Ray 05/07/17 1936 Signed Impressions: Service Date/Time: Sunday, May 07, 2017 19:32 - CONCLUSION: Normal examination. Claus Hill MD Abdomen/Pelvis CT 05/07/171935 Signed Impressions: Service Date/Time: Sunday, May 07, 2017 21:28 - CONCLUSION: 1. No acute abnormality seen. 2. Possible small hiatal hernia. Claus Hill MD Laboratory Test 05/07/17 19:55 05/07/17 20:50 05/08/17 06:30 White Blood Count 14.8 TH/MM3 17.4 TH/MM3 Red Blood Count 4.63 MIL/MM3 4.34 MIL/MM3 Hemoglobin 13.9 GM/DL 13.4 GM/DL Hematocrit 42.5 % 39.6 % Mean Corpuscular Volume 91.7 FL 91.4 FL Mean Corpuscular Hemoglobin 29.9 PG 30.9 PG Mean Corpuscular Hemoglobin Concent 32.6 % 33.8 % Red Cell Distribution Width 13.8 % 13.7 % Platelet Count 207 TH/MM3 171 TH/MM3 Mean Platelet Volume 8.5 FL 9.0 FL Neutrophils (%) (Auto) 90.4 % 90.3 % Lymphocytes (%) (Auto) 4.3 % 3.6 % Monocytes (%) (Auto) 5.0 % 6.0 % Eosinophils (%) (Auto) 0.0 % 0.0 % Basophils (%) (Auto) 0.3 % 0.1 % Neutrophils # (Auto) 13.3 TH/MM3 15.7 TH/MM3 Lymphocytes # (Auto) 0.6 TH/MM3 0.6 TH/MM3 Monocytes # (Auto) 0.7 TH/MM3 1.0 TH/MM3 Eosinophils # (Auto) 0.0 TH/MM3 0.0 TH/MM3 Basophils # (Auto) 0.0 TH/MM3 0.0 TH/MM3 CBC Comment DIFF FINAL DIFF FINAL Differential Comment Prothrombin Time 10.8 SEC Prothromb Time International Ratio 1.0 RATIO Activated Partial Thromboplast Time 25.0 SEC Blood Urea Nitrogen 19 MG/DL 14 MG/DL Creatinine 1.05 MG/DL 0.97 MG/DL Random Glucose 116 MG/DL 146 MG/DL Total Protein 7.9 GM/DL 7.9 GM/DL Albumin 4.1 GM/DL 3.7 GM/DL Calcium Level 8.9 MG/DL 8.7 MG/DL Alkaline Phosphatase 81 U/L 78 U/L Aspartate Amino Transf (AST/SGOT) 19 U/L 14 U/L Alanine Aminotransferase (ALT/SGPT) 23 U/L 20 U/L Total Bilirubin 0.6 MG/DL 0.5 MG/DL Sodium Level 138 MEQ/L 138 MEQ/L Potassium Level 3.4 MEQ/L 3.3 MEQ/L Chloride Level 105 MEQ/L 101 MEQ/L Carbon Dioxide Level 25.3 MEQ/L 24.4 MEQ/L Anion Gap 8 MEQ/L 13 MEQ/L Estimat Glomerular Filtration Rate 53 ML/MIN 58 ML/MIN Lactic Acid Level 1.4 mmol/L Troponin I LESS THAN 0.02 NG/ML Lipase 84 U/L Urine Color YELLOW Urine Turbidity HAZY Urine pH 6.0 Urine Specific [place] 1.039 Urine Protein 30 mg/dL Urine Glucose (UA) NEG mg/dL Urine Ketones 10 mg/dL Urine Occult Blood NEG Urine Nitrite NEG Urine Bilirubin NEG Urine Urobilinogen 2.0 MG/DL Urine Leukocyte Esterase NEG Urine RBC 1 /hpf Urine WBC 1 /hpf Urine Squamous Epithelial Cells 6 /hpf Urine Bacteria RARE /hpf Urine Hyaline Casts 3 /lpf Urine Mucus FEW /lpf Microscopic Urinalysis Comment CULT NOT INDICATED Physical Examination HEENT: Normocephalic; atraumatic; no jaundice. CHEST: CTA CARDIAC: RRR ABDOMEN: Soft, nondistended, nontender; no hepatosplenomegaly; bowel sounds are present in all four quadrants. EXTREMITIES: Decreased mobility secondary to back pain SKIN: Normal; no rash; no jaundice. TECHNICAL EDITOR: No focal deficits; alert and oriented times three. (Brandee Nguyen [facility]) Assessment and Plan Plan ASSESSMENT: - Abdominal pain with n/v. Pt has long history of back problems and woke up yesterday with severe back pain radiating around to the right side of her abdomen and right buttock. This is a severe cramping/ shooting pain that is related to movement, but not food intake. She had one episode of n/v after taking her pain meds for the back pain, but states that she has not had any further n/v. No other GI symptoms other than occasional constipation secondary to pain meds. Her pain is primarily in her back with some pain radiating to her abdomen/buttock. CT Scan of the abdomen and pelvis was unremarkable. This is likely referred pain from her back. No need for further GI workup at this time. - Severe back pain with abnormal lumbar spine MRI. Neurosurgery consulted, pain management per attending. - COPD, Depression, Hyperlipidemia, HTN per attending. PLAN: - BILLY - Pt's abdominal pain seems to be referred pain from her back- as this is a shooting/cramping pain that radiates from her back to her right buttock and is related to movement- not food. No need for further GI workup at this time. We will sign off, please reconsult as needed - Pt seen and examined by Dr. Jiang and myself and this note is written on his behalf (Brandee Nguyen) Physician Comments As above, radiculopathy and recent heavy lifting . no GI symptoms at the current time. Please notify us if needed. (Remedios Jiang MD) Brandee Nguyen May 08, 2017 17:35 Remedios Jiang MD May 08, 2017 21:51
[2017-05-08] MEDS: ACETAMINOPHEN 325 MG TAB PO PRN (17:56)
[2017-05-08] MEDS: REMOVE OLD NICODERM (NICOTINE) PATCH T-DERMAL SCH (21:00)
[2017-05-08] MEDS: PRAVASTATIN SOD 10 MG TAB PO SCH (22:31)
--- NOTE | 2017-05-08 22:36 | PD.CONS ---
[facility] Service neurosurgery Consult Requested By Dr Cowart Reason for Consult Lumbar spondylosis, intractable back pain Primary Care Physician Garland Cowart, DO History of Present Illness This is a 66 year old female with history of COPD, depression, and hyperlipidemia, who presented to [facility] with intractable back pain, hip/leg pain, and abdominal pain. Her pain was very severe, woke her up in the morning. She has chrnic intractable pain, but she denies anything as severe as this in the past. She denies any history of abdominal surgeries. Her pain was so severe that she had nausea and vomiting. Patient states she's tried taking her Tylenol with Codeine for this along with aspirin with no improvement in her symptoms. She denies any fevers, recent illness or falls. Denies any chest pain or shortness of breath. Denies any loss or change in bladder. She has severe back pain with muscle spasms. The pain radiated to bothy lower extremities, but it is much worse on the right than the left. CT of the abdomen was negative. A receiving supervisor was consulted and they found no intra-abdominal conditions, and the diagnosis as having referred pain from her back. Tried conservative treatment in the past with analgesics anti-inflammatories and extensive physical therapy. She has also undergone multiple epidural steroid injections with only mild temporary relief an MRI of the lumbar spine show significant loss of the space height at L4 5 with disc protrusion and neural impingement. Neurosurgical consultation was requested Review of Systems Constitutional: DENIES: Diaphoretic episodes, Fatigue, Fever, Weight gain, Weight loss, Chills, Dizziness, Change in appetite, Night Sweats Endocrine: DENIES: Abnorml menstrual pattern, Heat/cold intolerance, Polydipsia , Polyuria, Polyphagia Eyes: DENIES: Blurred vision, Diplopia, Eye inflammation, Eye pain, Vision loss , Photosensitivity, Double Vision Ears, nose, mouth, throat: DENIES: Tinnitus, Hearing loss, Vertigo, Nasal discharge, Oral lesions, Throat pain, Hoarseness, Ear Pain, Running Nose, Epistaxis, Sinus Pain, Toothache, Odynophagia Respiratory: COMPLAINS OF: Snoring Cardiovascular: DENIES: Chest pain, Palpitations, Syncope, Dyspnea on Exertion , PND, Lower Extremity Edema, Orthopnea, Claudication Gastrointestinal: COMPLAINS OF: Abdominal pain, DENIES: Black stools, Bloody stools, Constipation, Diarrhea, Nausea, Vomiting, Difficulty Swallowing, Anorexia Genitourinary: DENIES: Abnormal vaginal bleeding, Dysmenorrhea, Dyspareunia, Sexual dysfunction, Urinary frequency, Urinary incontinence, Urgency, Hematuria , Dysuria, Nocturia, Vaginal discharge Musculoskeletal: DENIES: Joint pain, Muscle aches, Stiffness, Joint Swelling, Back pain, Neck pain Integumentary: DENIES: Abnormal pigmentation, Pruritus, Rash, Nail changes, Breast masses, Breast skin changes, Nipple discharge Hematologic/lymphatic: DENIES: Bruising, Lymphadenopathy Immunologic/allergic: DENIES: Eczema, Urticaria Neurologic: COMPLAINS OF: Abnormal gait, Localized weakness, Paresthesias, DENIES: Headache, Seizures, Speech Problems, Tremor, Poor Balance Psychiatric: COMPLAINS OF: Depression, DENIES: Anxiety, Confusion, Mood changes , Hallucinations, Agitation, Suicidal Ideation, Homicidal Ideation, Delusions Past Family Social History Allergies: Coded Allergies: No Known Allergies (Verified , 05/07/17) Past Medical History COPD Depression Hyperlipidemia HTN Chronic back pain Past Surgical History Hysterectomy Surgery for dislocated shoulder Active Ordered Medications Current Medications Morphine Sulfate (Morphine Inj) 2 mg ONCE ONCE IV PUSH Last administered on 19:52; Start 05/07/17 at 19:45; Stop 05/07/17 at 19:46; Status DC Ondansetron HCl (Zofran Inj) 4 mg ONCE ONCE IVP Last administered on 19:50; Start 05/07/17 at 19:45; Stop 05/07/17 at 19:46; Status DC Sodium Chloride (NS Flush) 2 ml UNSCH PRN IV FLUSH FLUSH AFTER USING IV ACCESS ; Start 05/07/17 at 19:45 Albuterol/ Ipratropium (Duoneb Neb) 1 ampule ONCE ONCE INH Last administered on 05/07/17 20:09; Start 05/07/17 at 19:45; Stop 05/07/17 at 19:46; Status DC Morphine Sulfate (Morphine Inj) 4 mg ONCE ONCE IV PUSH Last administered on 20:53; Start 05/07/17 at 20:45; Stop 05/07/17 at 20:46; Status DC Iohexol (Omnipaque 350 Inj) 95 ml STK-MED ONCE IVCONTRAST Last administered on 05/07/17 18:33; Start 05/07/17 at 18:33; Stop 05/07/17 at 21:31; Status DC Morphine Sulfate (Morphine Inj) 4 mg ONCE ONCE IV PUSH Last administered on 22:57; Start 05/07/17 at 23:00; Stop 05/07/17 at 23:01; Status DC Ondansetron HCl (Zofran Inj) 4 mg Q6H PRN IV NAUSEA OR VOMITING; Start at 23:45 Acetaminophen (Tylenol) 650 mg Q4H PRN PO Temp>101F, Headache Last administered on 05/08/17 17:56; Start 05/07/17 at 23:45 Acetaminophen (Tylenol Supp) 650 mg Q4H PRN RECTAL Temp>101F, Headache; Start 05/07/17 at 23:45 Morphine Sulfate (Morphine Inj) 2 mg Q2H PRN IV PUSH ABDOMINAL PAIN Last administered on 05/08/17 19:32; Start 05/07/17 at 23:45 Pantoprazole Sodium (Protonix Inj) 40 mg DAILY IVP Last administered on 08:51; Start 05/08/17 at 09:00 Sodium Chloride 1,000 ml @ 125 mls/hr Q8H IV ; Start 05/07/17 at 23:41; Stop at 06:57; Status DC Albuterol/ Ipratropium (Duoneb Neb) 1 ampule Q4HR NEB PRN NEB SHORTNESS OF BREATH; Start 05/08/17 at 00:15; Stop 05/08/17 at 07:01; Status DC Sertraline HCl (Zoloft) 25 mg DAILY PO Last administered on 05/08/17 08:51; Start 05/08/17 at 09:00 Pravastatin Sodium (Pravachol) 10 mg HS PO ; Start 05/08/17 at 21:00 Miscellaneous (Pill Splitter) 1 ea UNSCH PRN OTHER SEE LABEL COMMENTS; Start at 00:15 Cyclobenzaprine HCl (Flexeril) 10 mg Q8H PRN PO MUSCLE SPASM Last administered on 05/08/17 07:45; Start 05/08/17 at 06:30 Albuterol/ Ipratropium (Duoneb Neb) 1 ampule Q6HR NEB PRN NEB SHORTNESS OF BREATH; Start 05/08/17 at 06:30 Azithromycin (Zithromax) 500 mg Taper DAILY PO Last administered on 05/08/17 08:51; Start 05/08/17 at 08:00; Stop 05/13/17 at 07:59 Nicotine (Habitrol 21 Mg Patch.24 Hr) 1 patch DAILY TD ; Start 05/08/17 at 09:00 Enoxaparin Sodium (Lovenox Inj) 40 mg Q24H SQ Last administered on 05/08/17 08 :51; Start 05/08/17 at 08:00 Miscellaneous Information 1 HS T-DERMAL ; Start 05/08/17 at 21:00 Clonidine (Catapres) 0.1 mg Q12HR PO Last administered on 05/08/17 13:08; Start 05/08/17 at 13:00 Potassium Chloride (KCl) 20 meq Q12HR PO Last administered on 05/08/17 13:08; Start 05/08/17 at 13:00 Fentanyl (Duragesic 25 Mcg Patch.72 Hr) 1 patch Q3D T-DERMAL Last administered on 05/08/17 14:26; Start 05/08/17 at 14:00 Miscellaneous Information 1 Q3D T-DERMAL ; Start 05/11/17 at 14:00 Family History Mother from Alzheimer's. Father had heart disease Social History 1.5-2 PPD tobacco No ETOH useMother from Alzheimer's. Father had heart disease Physical Exam Vital Signs Vital Signs Date Time Temp Pulse Resp B/P (MAP) Pulse Ox O2 Delivery O2 Flow Rate FiO2 05/08/17 21:56 96 Nasal Cannula 3.00 05/08/17 20:39 18 05/08/17 19:42 99.3 79 18 130/64 (86) 98 05/08/17 19:34 20 05/08/17 15:50 101.0 89 21 121/91 (101) 98 05/08/17 15:26 18 05/08/17 15:00 86 05/08/17 12:39 86 05/08/17 11:55 97.2 89 18 149/65 (93) 97 05/08/17 08:21 96 Nasal Cannula 2.00 05/08/17 08:00 86 05/08/17 07:49 97.9 85 21 159/74 (102) 98 05/08/17 05:15 98.5 82 18 152/71 (98) 96 05/08/17 01:10 101 22 135/68 (90) 96 Nasal Cannula 2.00 05/08/17 00:06 95 Nasal Cannula 2.00 05/07/17 23:20 92 18 118/78 (91) 95 Nasal Cannula 2.00 Physical Exam The patient is alert, awake and oriented to time, place and person. Speech is fluent. She is in distress secondary to severe pain. Higher cognitive functions are normal. Cranial nerve examination demonstrates the pupils to be equal, round, and reactive to light. Extra-ocular movements are intact. Facial motor and sensory function are normal and symmetrical. Gross hearing is intact, bilaterally. The uvula is midline and elevates symmetrically with the soft palate. Sternocleidomastoid and trapezius muscles have normal and symmetrical strength. Other cranial nerves are intact. Neck is soft and supple. Cervical spine has a full range of motion in anterior flexion, extension, lateral bending, and rotation without pain. There is no tenderness to palpation to the spinous processes or paraspinal muscles. Muscle testing reveals normal bulk and tone overall without rigidity, spasticity , fasciculations, or atrophy. Muscle strength is 5/5 in all muscle groups of both upper extremities including deltoid, biceps, triceps, brachioradialis, wrist extension and mountain or glacier guide. In the lower extremities examination is difficult due to severe pain in her lumbar region, radiating to both lower extr., Sstrength is 5/5 in both iliopsoas, quadriceps, hamstrings, plantar flexion, 4+/5 dorsiflexion, and extensor hallicus longus with give away secondary to pain. Sensory examination is intact to light touch and sharp/dull discrimination in both the upper and lower extremities, symmetrically. Deep tendon reflexes are 2+ and symmetrical in the biceps, triceps, and brachioradialis, bilaterally, in the upper extremities. In the lower extremities , the patellar and Achilles are 2+, bilaterally. There is a bilateral plantar flexion response. Hoffmanns sign is negative. There is no clonus or other abnormal reflexes noted. Cerebellar examination is intact to [id number] test, rapid rhythmic alternating motion. There is no dysmetria, dysdiadochokinesia, truncal ataxia, or tremor. Laboratory Laboratory Tests Test 05/08/17 06:30 White Blood Count 17.4 Red Blood Count 4.34 Hemoglobin 13.4 Hematocrit 39.6 Mean Corpuscular Volume 91.4 Mean Corpuscular Hemoglobin 30.9 Mean Corpuscular Hemoglobin Concent 33.8 Red Cell Distribution Width 13.7 Platelet Count 171 Mean Platelet Volume 9.0 Neutrophils (%) (Auto) 90.3 Lymphocytes (%) (Auto) 3.6 Monocytes (%) (Auto) 6.0 Eosinophils (%) (Auto) 0.0 Basophils (%) (Auto) 0.1 Neutrophils # (Auto) 15.7 Lymphocytes # (Auto) 0.6 Monocytes # (Auto) 1.0 Eosinophils # (Auto) 0.0 Basophils # (Auto) 0.0 CBC Comment DIFF FINAL Differential Comment Blood Urea Nitrogen 14 Creatinine 0.97 Random Glucose 146 Total Protein 7.9 Albumin 3.7 Calcium Level 8.7 Alkaline Phosphatase 78 Aspartate Amino Transf (AST/SGOT) 14 Alanine Aminotransferase (ALT/SGPT) 20 Total Bilirubin 0.5 Sodium Level 138 Potassium Level 3.3 Chloride Level 101 Carbon Dioxide Level 24.4 Anion Gap 13 Estimat Glomerular Filtration Rate 58 Result Diagram: 05/08/17 0630 05/08/17 0630 Imaging Last 48 hours Impressions Lumbar Spine MRI 05/08/17 0000 Signed Impressions: Service Date/Time: Monday, May 08, 2017 13:59 - CONCLUSION: 1. Scattered degenerative changes. Most pronounced at L4-L5 with abutment of the right L4 nerve root within the neural foramen and potential source for right L4 radiculopathy. Each level detailed in the above discussion. Luigi Nolen Jr., MD Chest X-Ray 05/07/171935 Signed Impressions: Service Date/Time: Sunday, May 07, 2017 19:32 - CONCLUSION: Normal examination. Claus Hill MD Abdomen/Pelvis CT 05/07/171935 Signed Impressions: Service Date/Time: Sunday, May 07, 2017 21:28 - CONCLUSION: 1. No acute abnormality seen. 2. Possible small hiatal hernia. Claus Hill MD Caprini VTE Risk Assessment Caprini VTE Risk Assessment: Mod/High Risk (score >= 2) Caprini Risk Assessment Model Point Value = 1 Point Value = 2 Point Value = 3 Point Value = 5 Age 41-60 Minor surgery BMI > 25 kg/m2 Swollen legs Varicose veins or History of unexplained or recurrent spontaneous Oral contraceptives or hormone replacement Sepsis (< 1 month) Serious lung disease, including pneumonia (< 1 month) Abnormal pulmonary function Acute myocardial infarction Congestive heart failure (< 1 month) History of inflammatory bowel disease Medical patient at bed rest Age 61-74 Arthroscopic surgery Major open surgery (> 45 min) Laparoscopic surgery (> 45 min) Malignancy Confined to bed (> 72 hours) Immobilizing plaster cast Central venous access Age >= 75 History of VTE Family history of VTE Factor V Leiden Prothrombin [id number] Lupus anticoagulant Anticardiolipin antibodies Elevated serum homocysteine Heparin-induced thrombocytopenia Other congenital or acquired thrombophilia Stroke (< 1 month) Elective arthroplasty Hip, pelvis, or leg fracture Acute spinal cord injury (< 1 month) Prophylaxis Regimen Total Risk Factor Score Risk Level Prophylaxis Regimen 0-1 Low Early ambulation 2 Moderate Order ONE of the following: *Sequential Compression Device (SCD) *Heparin 5000 units SQ BID 3-4 Higher Order ONE of the following medications: *Heparin 5000 units SQ TID *Enoxaparin/Lovenox 40 mg SQ daily (WT < 150 kg, CrCl > 30 mL/min) *Enoxaparin/Lovenox 30 mg SQ daily (WT < 150 kg, CrCl > 10-29 mL/min) *Enoxaparin/Lovenox 30 mg SQ BID (WT < 150 kg, CrCl > 30 mL/min) AND/OR *Sequential Compression Device (SCD) 5 or more Highest Order ONE of the following medications: *Heparin 5000 units SQ TID (Preferred with Epidurals) *Enoxaparin/Lovenox 40 mg SQ daily (WT < 150 kg, CrCl > 30 mL/min) *Enoxaparin/Lovenox 30 mg SQ daily (WT < 150 kg, CrCl > 10-29 mL/min) *Enoxaparin/Lovenox 30 mg SQ BID (WT < 150 kg, CrCl > 30 mL/min) AND *Sequential Compression Device (SCD) Attending Statement neuro checks in a serial fashion. Lumbar spinal stenosis., I have discussed the alternative methods of treatment including, conservative management, pain management by an interventional painter tumbling barrel, or a surgical decompression, which should always be a last resort. . She has failed to improve with conservative treatment including physical therapy, exercises, antiinflammatories and muscle relaxants, as well as , epidural steroid injections performed by an interventional pain specialist. She understands that a surgical procedure should be considered as a last resort. Unfortunately, her symptoms are getting worse and continue to affect her activities of daily living. I discussed with her the alternative of continuing nonsurgical treatment with further pain management and physical therapy, analgesics, and antiimflammatories, versus consideration to a surgical decompression with a right L4-5 decompressive laminectomy and interbody arthrodhesis with a TLIF I adviced Ms Escobedo that before reaching a decision in regards to surgery, she should consider the alternatives, including the possibility of no treatment. She understands the possibility of returning for further pain management. She may have spondylolisthesis at L3-4, and I recommend flexion extension xrays of the lumbar spine to rule out instability at L3-4. She has ernie back pain and radiculopathy affecting both lower extremities, however, I am unable to rule out an associated ligamentous problem in her right hip. Abdominal pain with n/v. She has severe cramping/shooting pain with one episode of n/v after taking her pain meds. CT Scan of the abdomen and pelvis was unremarkable. She has been seen and cleared by GI RESP: aggressive pulmonary toilette, nasotracheal suction, and breathing treatments with nebulizers. PT eval Nutrition. Oral diet Renal. monitor closely urine output, BUN and creatinine Endocrine. Monitor serial Acu checks and SSI as needed in detail ID monitor for signs of infection Protonix for stress ulcer prophylaxis Arvin riley and SCD's for DVT prophylaxis Real Arnold MD May 08, 2017 22:36
[2017-05-09] VITALS (10 sets, daily range): BP systolic 111–140; BP diastolic 63–73; PULSE 68–93; RESP 17–20; TEMP 97.9–99.1; O2SAT 95–98
[2017-05-09] MEDS: MORPHINE SULFATE 4 MG/ML INJ IV PUSH PRN ×7 (01:49→23:28)
[2017-05-09] MEDS: CYCLOBENZAPRINE HCL 10 MG TAB PO PRN ×3 (01:49→21:46)
[2017-05-09] MEDS: NICOTINE 21 MG/24 HR PATCH TD SCH (09:00)
[2017-05-09] MEDS: POTASSIUM CHLORIDE 20 MEQ CONTROLLED RELEASE TAB PO SCH ×2 (09:13→21:21)
[2017-05-09] MEDS: PANTOPRAZOLE SODIUM 40 MG VIAL IVP SCH (09:13)
[2017-05-09] MEDS: cloNIDine HCL 0.1 MG TAB PO SCH ×2 (09:13→21:21)
[2017-05-09] MEDS: AZITHROMYCIN 250 MG TAB PO SCH (09:14)
[2017-05-09] MEDS: SERTRALINE HCL 50 MG TAB PO SCH (09:14)
[2017-05-09] MEDS: ENOXAPARIN SODIUM 40 MG/0.4 ML SYRINGE SQ SCH (09:16)
[2017-05-09 09:49] LABS: HEMATOCRIT 36.8 % (35.0-46.0); MEAN CELL VOLUME 91.2 FL (80.0-100.0); MEAN CORPUSCULAR HEMOGLOBIN 30.8 PG (27.0-34.0); MEAN CORPUSCULAR HGB CONC 33.8 % (32.0-36.0); PLATELET COUNT 123 TH/MM3 (150-450); RED BLOOD COUNT 4.03 MIL/MM3 (4.00-5.30); REVIEW FLAG FINAL; WHITE BLOOD COUNT 9.8 TH/MM3 (4.0-11.0)
--- NOTE | 2017-05-09 10:13 | HHI.PR ---
Subjective Remarks Patient continues to have radiating back pain which makes it difficult to walk. Denies and CP or SOB Objective Vital Signs Date Time Temp Pulse Resp B/P (MAP) Pulse Ox O2 Delivery O2 Flow Rate FiO2 05/09/17 08:43 96 Nasal Cannula 3.00 05/09/17 07:41 99.1 82 17 120/68 (85) 95 05/09/17 06:33 18 05/09/17 04:53 97.9 68 18 137/70 (92) 98 05/09/17 01:44 98.5 83 18 139/69 (92) 95 05/08/17 21:56 96 Nasal Cannula 3.00 05/08/17 19:42 99.3 79 18 130/64 (86) 98 05/08/17 19:34 20 05/08/17 15:50 101.0 89 21 121/91 (101) 98 05/08/17 15:26 18 05/08/17 15:00 86 05/08/17 12:39 86 05/08/17 11:55 97.2 89 18 149/65 (93) 97 I/O 05/08/17 05/08/17 05/08/17 05/09/17 05/09/17 05/09/17 06:59 14:59 22:59 06:59 14:59 22:59 Intake Total 240 ml 200 ml 50 ml Balance 240 ml 200 ml 50 ml Intake Oral 240 ml 200 ml 50 ml # Voids 1 5 # Bowel Movements 0 Result Diagram: 05/08/17 0630 05/08/17 0630 Imaging Last 72 hours Impressions Lumbar Spine MRI 05/08/17 0000 Signed Impressions: Service Date/Time: Monday, May 08, 2017 13:59 - CONCLUSION: 1. Scattered degenerative changes. Most pronounced at L4-L5 with abutment of the right L4 nerve root within the neural foramen and potential source for right L4 radiculopathy. Each level detailed in the above discussion. Luigi Nolen Jr., MD Chest X-Ray 05/07/171935 Signed Impressions: Service Date/Time: Sunday, May 07, 2017 19:32 - CONCLUSION: Normal examination. Claus iHll MD Abdomen/Pelvis CT 05/07/171935 Signed Impressions: Service Date/Time: Sunday, May 07, 2017 21:28 - CONCLUSION: 1. No acute abnormality seen. 2. Possible small hiatal hernia. Claus Hill MD Objective Remarks GENERAL: Alert and oriented. SKIN: Warm and dry. HEAD: Normocephalic. EYES: No scleral icterus. No injection or drainage. NECK: Supple, trachea midline. No JVD or lymphadenopathy. CARDIOVASCULAR: Regular rate and rhythm without murmurs, gallops, or rubs. RESPIRATORY: Breath sounds equal bilaterally. No accessory muscle use. GASTROINTESTINAL: Abdomen soft, non-tender, nondistended. MUSCULOSKELETAL: No cyanosis, or edema. BACK: Nontender without obvious deformity. No CVA tenderness. Medications and IVs Current Medications Medications (Trade) Dose Ordered Sig/Misael Route Start Time Stop Time Status Last Admin (NS Flush) 2 ml UNSCH PRN IV FLUSH 05/07/17 19:45 (Zofran Inj) 4 mg Q6H PRN IV 05/07/17 23:45 (Tylenol) 650 mg Q4H PRN PO 05/07/17 23:45 05/08/17 17:56 (Tylenol Supp) 650 mg Q4H PRN RECTAL 05/07/17 23:45 (Morphine Inj) 2 mg Q2H PRN IV PUSH 05/07/17 23:45 05/09/17 09:33 (Protonix Inj) 40 mg DAILY IVP 05/08/17 09:00 05/09/17 09:13 (Zoloft) 25 mg DAILY PO 05/08/17 09:00 05/09/17 09:14 (Pravachol) 10 mg HS PO 05/08/17 21:00 05/08/17 22:31 (Pill Splitter) 1 ea UNSCH PRN OTHER 05/08/17 00:15 (Flexeril) 10 mg Q8H PRN PO 05/08/17 06:30 05/09/17 01:49 (Duoneb Neb) 1 ampule Q6HR NEB PRN NEB 05/08/17 06:30 (Zithromax) 250 mg Taper DAILY PO 05/08/17 08:00 05/13/17 07:59 05/09/17 09:14 (Habitrol 21 Mg Patch.24 Hr) 1 patch DAILY TD 05/08/17 09:00 (Lovenox Inj) 40 mg Q24H SQ 05/08/17 08:00 05/09/17 09:16 Miscellaneous Information 1 HS T-DERMAL 05/08/17 21:00 (Catapres) 0.1 mg Q12HR PO 05/08/17 13:00 05/09/17 09:13 (KCl) 20 meq Q12HR PO 05/08/17 13:00 05/09/17 09:13 (Duragesic 25 Mcg Patch.72 Hr) 1 patch Q3D T-DERMAL 05/08/17 14:00 05/08/17 14:26 Miscellaneous Information 1 Q3D T-DERMAL 05/11/17 14:00 Assessment and Plan Problem List: (1) Abdominal pain ICD Codes: R10.9 - Unspecified abdominal pain (2) Back pain ICD Codes: M54.9 - Dorsalgia, unspecified (3) Depression ICD Codes: F32.9 - Major depressive disorder, single episode, unspecified (4) Tobacco abuse ICD Codes: Z72.0 - Tobacco use (5) COPD (chronic obstructive pulmonary disease) with acute bronchitis ICD Codes: J44.0 - Chronic obstructive pulmonary disease with acute lower respiratory infection Assessment and Plan 05/08/17 Abdominal pain- GI consulted Presented to ED with abdominal pain for 1 day. Nausea and vomiting reported. The pain was so intense that she was awaken from sleep. She was not able to even stand initially and crawled to bathroom. Abdomen only mildly tender on palpation no guarding present. Pain spasmatic radiating to back. Has morphine for pain. CT of abdomen with no acute abnormality found. Small hiatal hernia. On IV Protonix and IVF's. Zofran PRN Back pain: Patient with pain radiating to back. Is spasmodic in nature. No fall reported. Will order muscle relaxer and imaging. COPD with acute bronchitis- Lung sounds are rhonchi and WBC elevated at 14.3 will start Azithromycin and breathing treatments. Depression - continue zoloft. Reported that her mother on April 10 and she has been very depressed. HLD- continue statin DVT and GI prophylaxis ordered. 05/09/17 Abdominal pain- GI consulted and cleared. Will need to reconsult for further or continued problems. Presented to ED with abdominal pain for 1 day. Nausea and vomiting reported. The pain was so intense that she was awaken from sleep. She was not able to even stand initially and crawled to bathroom. Abdomen non tender on palpation no guarding present. Pain spasmatic radiating to back. Has morphine for pain. CT of abdomen with no acute abnormality found. Small hiatal hernia. On IV Protonix changed to PO. Zofran PRN Back pain: Patient with pain radiating to back. Is spasmodic in nature. No fall reported. On muscle relaxer and IV morphine. Imaging with lumbar spinal stenosis. Neuro checks in a serial fashion. Nonoperative treatment with analgesics versus pain management. A surgical decompression will be offered as a last resort only per Neurosurgeon note. Discussed with Dr. Cowart interventional radiology consulted for epidural steroid injection. Fentanyl patch increased per Dr. Cowart. Gaudencio hold PT today. COPD with acute bronchitis- Lung sounds are rhonchi on Azithromycin and breathing treatments. Mucinex added. Depression - continue zoloft. Reported that her mother on April 10 and she has been very depressed. HLD- continue statin DVT and GI prophylaxis ordered. I and the BUSINESS LIAISON OFFICER have both examined this patient and reviewed this note and I agree with these findings and plan of care. Hawa Reilly. BUSINESS LIAISON OFFICER May 09, 2017 10:13
[2017-05-09 10:16] LABS: BICARBONATE 26.1 MEQ/L (21.0-32.0); POTASSIUM 3.8 MEQ/L (3.5-5.1)
[2017-05-09 12:21] LABS: INTERNATIONAL NORMALIZED RATIO 0.9 RATIO; PROTHROMBIN TIME - PATIENT 10.4 SEC (9.8-11.6)
[2017-05-09] MEDS ORDERED: ceFAZolin 2 GM PREMIX 50 ML IV ONE (13:15)
[2017-05-09] MEDS ORDERED: VANCOMYCIN INJ 1,000 MG in SODIUM CHLOR 0.9% 250 ML INJ 250 ML IV ONE (13:15)
--- NOTE | 2017-05-09 15:19 | HHI.NSPN ---
Note Status Status: Progress Note Interval History Diagnosis Lumbar spondylosis and radiculopathy Interval History This is a 66 year old female with history of COPD, depression, and hyperlipidemia, who presented to [facility] with intractable back pain, hip/leg pain, and abdominal pain. Her pain was very severe, woke her up in the morning. She has chrnic intractable pain, but she denies anything as severe as this in the past. She denies any history of abdominal surgeries. Her pain was so severe that she had nausea and vomiting. Patient states she's tried taking her Tylenol with Codeine for this along with aspirin with no improvement in her symptoms. She denies any fevers, recent illness or falls. Denies any chest pain or shortness of breath. Denies any loss or change in bladder. She has severe back pain with muscle spasms. The pain radiated to bothy lower extremities, but it is much worse on the right than the left. CT of the abdomen was negative. A needle loom operator helper was consulted and they found no intra-abdominal conditions, and the diagnosis as having referred pain from her back. Tried conservative treatment in the past with analgesics anti-inflammatories and extensive physical therapy. She has also undergone multiple epidural steroid injections with only mild temporary relief an MRI of the lumbar spine show significant loss of the space height at L4 5 with disc protrusion and neural impingement. Neurosurgical consultation was requested 05.09. She remains in severe pain, entered in her L4-5 region with bilateral radiculopathy. She has been cleared by GI. She has flexion extension xrays ordered Labs, Micro, & Vital Signs Results Date Time Temp Pulse Resp B/P (MAP) Pulse Ox O2 Delivery O2 Flow Rate FiO2 05/09/17 11:34 98.1 78 18 111/63 (79) 97 05/09/17 08:43 96 Nasal Cannula 3.00 05/09/17 07:41 99.1 82 17 120/68 (85) 95 05/09/17 06:33 18 05/09/17 04:53 97.9 68 18 137/70 (92) 98 05/09/17 01:44 98.5 83 18 139/69 (92) 95 05/08/17 21:56 96 Nasal Cannula 3.00 05/08/17 19:42 99.3 79 18 130/64 (86) 98 05/08/17 19:34 20 05/08/17 15:50 101.0 89 21 121/91 (101) 98 05/08/17 15:26 18 05/10/17 07:00 Intake Total 50 ml Balance 50 ml Constitutional Vital Signs Date Time Temp Pulse Resp B/P (MAP) Pulse Ox O2 Delivery O2 Flow Rate FiO2 05/09/17 11:34 98.1 78 18 111/63 (79) 97 05/09/17 08:43 96 Nasal Cannula 3.00 05/09/17 07:41 99.1 82 17 120/68 (85) 95 05/09/17 06:33 18 05/09/17 04:53 97.9 68 18 137/70 (92) 98 05/09/17 01:44 98.5 83 18 139/69 (92) 95 05/08/17 21:56 96 Nasal Cannula 3.00 05/08/17 19:42 99.3 79 18 130/64 (86) 98 05/08/17 19:34 20 05/08/17 15:50 101.0 89 21 121/91 (101) 98 05/08/17 15:26 18 05/10/17 07:00 Intake Total 50 ml Balance 50 ml Physical Exam The patient is alert, awake and oriented to time, place and person. Speech is fluent. She is in distress secondary to severe pain. Higher cognitive functions are normal. Cranial nerve examination demonstrates the pupils to be equal, round, and reactive to light. Extra-ocular movements are intact. No papiledema. Facial motor and sensory function are normal and symmetrical. Gross hearing is intact, bilaterally. The uvula is midline and elevates symmetrically with the soft palate. Sternocleidomastoid and trapezius muscles have normal and symmetrical strength. Other cranial nerves are intact. Neck is soft and supple. Cervical spine has a full range of motion in anterior flexion, extension, lateral bending, and rotation without pain. There is no tenderness to palpation to the spinous processes or paraspinal muscles. Muscle testing reveals normal bulk and tone overall without rigidity, spasticity , fasciculations, or atrophy. Muscle strength is 5/5 in all muscle groups of both upper extremities including deltoid, biceps, triceps, brachioradialis, wrist extension and trust accounts supervisor. In the lower extremities examination is difficult due to severe pain in her lumbar region, radiating to both lower extr., Sstrength is 5/5 in both iliopsoas, quadriceps, hamstrings, plantar flexion, 4+/5 dorsiflexion, and extensor hallicus longus with give away secondary to pain. Sensory examination is intact to light touch and sharp/dull discrimination in both the upper and lower extremities, symmetrically. Deep tendon reflexes are 2+ and symmetrical in the biceps, triceps, and brachioradialis, bilaterally, in the upper extremities. In the lower extremities , the patellar and Achilles are 2+, bilaterally. There is a bilateral plantar flexion response. Hoffmanns sign is negative. There is no clonus or other abnormal reflexes noted. Cerebellar examination is intact to [id number] test, rapid rhythmic alternating motion Medications Current Medications Current Medications Morphine Sulfate (Morphine Inj) 2 mg ONCE ONCE IV PUSH Last administered on 19:52; Start 05/07/17 at 19:45; Stop 05/07/17 at 19:46; Status DC Ondansetron HCl (Zofran Inj) 4 mg ONCE ONCE IVP Last administered on 19:50; Start 05/07/17 at 19:45; Stop 05/07/17 at 19:46; Status DC Sodium Chloride (NS Flush) 2 ml UNSCH PRN IV FLUSH FLUSH AFTER USING IV ACCESS ; Start 05/07/17 at 19:45; Stop 05/10/17 at 12:14; Status DC Albuterol/ Ipratropium (Duoneb Neb) 1 ampule ONCE ONCE INH Last administered on 05/07/17 20:09; Start 05/07/17 at 19:45; Stop 05/07/17 at 19:46; Status DC Morphine Sulfate (Morphine Inj) 4 mg ONCE ONCE IV PUSH Last administered on 20:53; Start 05/07/17 at 20:45; Stop 05/07/17 at 20:46; Status DC Iohexol (Omnipaque 350 Inj) 95 ml STK-MED ONCE IVCONTRAST Last administered on 05/07/17 18:33; Start 05/07/17 at 18:33; Stop 05/07/17 at 21:31; Status DC Morphine Sulfate (Morphine Inj) 4 mg ONCE ONCE IV PUSH Last administered on 22:57; Start 05/07/17 at 23:00; Stop 05/07/17 at 23:01; Status DC Ondansetron HCl (Zofran Inj) 4 mg Q6H PRN IV NAUSEA OR VOMITING; Start at 23:45 Acetaminophen (Tylenol) 650 mg Q4H PRN PO Temp>101F, Headache Last administered on 05/08/17 17:56; Start 05/07/17 at 23:45 Acetaminophen (Tylenol Supp) 650 mg Q4H PRN RECTAL Temp>101F, Headache; Start 05/07/17 at 23:45 Morphine Sulfate (Morphine Inj) 2 mg Q2H PRN IV PUSH ABDOMINAL PAIN Last administered on 05/10/17 05:38; Start 05/07/17 at 23:45; Stop 05/10/17 at 12:22 ; Status DC Pantoprazole Sodium (Protonix Inj) 40 mg DAILY IVP Last administered on 09:13; Start 05/08/17 at 09:00; Stop 05/09/17 at 10:15; Status DC Sodium Chloride 1,000 ml @ 125 mls/hr Q8H IV ; Start 05/07/17 at 23:41; Stop at 06:57; Status DC Albuterol/ Ipratropium (Duoneb Neb) 1 ampule Q4HR NEB PRN NEB SHORTNESS OF BREATH; Start 05/08/17 at 00:15; Stop 05/08/17 at 07:01; Status DC Sertraline HCl (Zoloft) 25 mg DAILY PO Last administered on 05/09/17 09:14; Start 05/08/17 at 09:00 Pravastatin Sodium (Pravachol) 10 mg HS PO Last administered on 05/09/17 21:21 ; Start 05/08/17 at 21:00 Miscellaneous (Pill Splitter) 1 ea UNSCH PRN OTHER SEE LABEL COMMENTS; Start at 00:15 Cyclobenzaprine HCl (Flexeril) 10 mg Q8H PRN PO MUSCLE SPASM Last administered on 05/09/17 21:46; Start 05/08/17 at 06:30 Albuterol/ Ipratropium (Duoneb Neb) 1 ampule Q6HR NEB PRN NEB SHORTNESS OF BREATH; Start 05/08/17 at 06:30 Azithromycin (Zithromax) 250 mg Taper DAILY PO Last administered on 05/09/17 09:14; Start 05/08/17 at 08:00; Stop 05/13/17 at 07:59 Nicotine (Habitrol 21 Mg Patch.24 Hr) 1 patch DAILY TD ; Start 05/08/17 at 09:00 Enoxaparin Sodium (Lovenox Inj) 40 mg Q24H SQ Last administered on 05/09/17 09 :16; Start 05/08/17 at 08:00; Stop 05/09/17 at 21:24; Status DC Miscellaneous Information 1 HS T-DERMAL ; Start 05/08/17 at 21:00 Clonidine (Catapres) 0.1 mg Q12HR PO Last administered on 05/09/17 21:21; Start 05/08/17 at 13:00 Potassium Chloride (KCl) 20 meq Q12HR PO Last administered on 05/09/17 21:21; Start 05/08/17 at 13:00 Fentanyl (Duragesic 25 Mcg Patch.72 Hr) 1 patch Q3D T-DERMAL Last administered on 05/08/17 14:26; Start 05/08/17 at 14:00; Stop 05/09/17 at 15:32 ; Status DC Miscellaneous Information 1 Q3D T-DERMAL ; Start 05/11/17 at 14:00; Stop 05/11/17 at 14:00; Status DC Guaifenesin (Mucinex Er) 600 mg BID PO Last administered on 05/09/17 21:22; Start 05/09/17 at 21:00 Pantoprazole Sodium (Protonix) 40 mg DAILY PO ; Start 05/10/17 at 09:00; Stop at 12:15; Status DC Sodium Chloride 1,000 ml @ 100 mls/hr Q10H IV Last administered on 05/09/17 23:45; Start 05/09/17 at 13:04; Stop 05/10/17 at 12:24; Status DC Cefazolin Sodium/ Dextrose 50 ml @ 150 mls/hr ONCE ONCE IV Last administered on 05/09/17 17:34; Start 05/09/17 at 13:15; Stop 05/09/17 at 17:56; Status DC Vancomycin HCl 1000 mg/Sodium Chloride 250 ml @ 250 mls/hr ONCE ONCE IV ; Start 05/09/17 at 13:15; Stop 05/09/17 at 17:56; Status DC Chlorhexidine Gluconate (Hibiclens 4% Top Soln) 1 applic HS TOP ; Start at 21:00; Stop 05/10/17 at 21:01 Fentanyl (Duragesic 50 Mcg Patch.72 Hr) 1 patch Q3D T-DERMAL Last administered on 05/09/17 17:45; Start 05/09/17 at 17:00 Miscellaneous Information 1 Q3D T-DERMAL Last administered on 05/09/17 17:00; Start 05/09/17 at 17:00 Sodium Chloride 1,000 ml @ 100 mls/hr Q10H IV ; Start 05/09/17 at 17:52; Stop 05/10/17 at 12:24; Status DC Cefazolin Sodium/ Dextrose 50 ml @ 150 mls/hr AUTOMOBILE BUMPER STRAIGHTENER IV Last administered on 05/10/17 11:03; Start 05/09/17 at 18:00 Vancomycin HCl 1000 mg/Sodium Chloride 250 ml @ 250 mls/hr AUTOMOBILE BUMPER STRAIGHTENER IV Last administered on 05/10/17 11:04; Start 05/09/17 at 18:00 Chlorhexidine Gluconate (Hibiclens 4% Top Soln) 1 applic HS TOP ; Start at 21:00; Stop 05/10/17 at 21:01 Vancomycin HCl 1000 mg/Sodium Chloride 250 ml @ 250 mls/hr AUTOMOBILE BUMPER STRAIGHTENER IV ; Start 05/09/17 at 18:00; Status Cancel Dextrose/Sodium Chloride 1,000 ml @ 42 mls/hr [id number] IV Last administered on 05/09/17 23:45; Start 05/09/17 at 21:30 Thrombin (Thrombin Top Soln) 10,000 units STK-MED ONCE .ROUTE Last administered on 05/10/17 09:40; Start 05/10/17 at 07:02; Stop 05/10/17 at 07:03 ; Status DC Gelatin (Gelfoam 100 Top) 1 foam STK-MED ONCE .ROUTE Last administered on 09:40; Start 05/10/17 at 07:03; Stop 05/10/17 at 07:04; Status DC Gentamicin Sulfate (Gentamicin Inj) 240 mg STK-MED ONCE .ROUTE Last administered on 05/10/17 09:40; Start 05/10/17 at 07:03; Stop 05/10/17 at 07:04 ; Status DC Acetaminophen 100 ml @ As Directed STK-MED ONCE IV ; Start 05/10/17 at 07:44; Stop 05/10/17 at 07:45; Status DC Artificial Tears (Lacrilube Opht Oint) 3.5 applic STK-MED ONCE .ROUTE ; Start at 07:44; Stop 05/10/17 at 07:45; Status DC Midazolam HCl (Versed Inj) 2 mg STK-MED ONCE .ROUTE ; Start 05/10/17 at 07:44; Stop 05/10/17 at 07:45; Status DC Fentanyl Citrate (fentaNYL INJ) 100 mcg STK-MED ONCE .ROUTE ; Start 05/10/17 at 07:44; Stop 05/10/17 at 07:45; Status DC Fentanyl Citrate (fentaNYL INJ) 400 mcg STK-MED ONCE .ROUTE ; Start 05/10/17 at 07:45; Stop 05/10/17 at 07:46; Status DC Famotidine (Pepcid Inj) 20 mg STK-MED ONCE .ROUTE ; Start 05/10/17 at 07:45; Stop 05/10/17 at 07:46; Status DC Sodium Chloride 100 ml @ As Directed STK-MED ONCE .ROUTE Last administered on 05/10/17 09:40; Start 05/10/17 at 08:01; Stop 05/10/17 at 08:02; Status DC Fentanyl Citrate (fentaNYL INJ) 200 mcg STK-MED ONCE .ROUTE ; Start 05/10/17 at 09:45; Stop 05/10/17 at 09:46; Status DC Bupivacaine HCl (Marcaine Pf 0.5% Inj) 30 ml STK-MED ONCE .ROUTE Last administered on 05/10/17 11:26; Start 05/10/17 at 11:26; Stop 05/10/17 at 11:27 ; Status DC Potassium Chloride/Sodium Chloride 1,000 ml @ 100 mls/hr Q10H IV Last administered on 05/10/17 12:18; Start 05/10/17 at 13:00 IV Flush (NS Flush) 2 ml UNSCH PRN IVF FLUSH AFTER USING IV ACCESS; Start 05/10 at 11:45 IV Flush (NS Flush) 2 ml BID IVF ; Start 05/10/17 at 21:00 Cefazolin Sodium/ Dextrose 50 ml @ 100 mls/hr Q8H IV ; Start 05/10/17 at 20:00 ; Stop 05/11/17 at 12:29 Pantoprazole Sodium (Protonix Inj) 40 mg DAILY IVP ; Start 05/11/17 at 09:00 Morphine Sulfate (Morphine Inj) 2 mg Q2H PRN IV PUSH PAIN SCALE 1 TO 6; Start 05/10/17 at 13:00 Morphine Sulfate (Morphine Inj) 4 mg Q2H PRN IV PUSH PAIN SCALE 7 TO 10; Start 05/10/17 at 13:00 Acetaminophen (Tylenol) 650 mg Q4H PRN PO TEMPERATURE > 101.5 F; Start at 13:00 Naloxone HCl (Narcan Inj) 0.4 mg UNSCH PRN IV RESPIRATORY RATE LESS THAN 10; Start 05/10/17 at 11:45 Diphenhydramine HCl (Benadryl Inj) 25 mg Q6H PRN IV ITCHING; Start 05/10/17 at 13:00 Hydromorphone HCl (Dilaudid GENERATOR WORKER Inj) 6 mg UNSCH IV Last administered on 12:42; Start 05/10/17 at 11:45 GENERATOR WORKER Dosage Infused (Pha) 1 Q8HR .XX ; Start 05/10/17 at 14:00 Medical Decision Making MDM Remarks Last 48 hours Impressions Lumbar Spine MRI 05/08/17 0000 Signed Impressions: Service Date/Time: Monday, May 08, 2017 13:59 - CONCLUSION: 1. Scattered degenerative changes. Most pronounced at L4-L5 with abutment of the right L4 nerve root within the neural foramen and potential source for right L4 radiculopathy. Each level detailed in the above discussion. Luigi Nolen Jr., MD Chest X-Ray 05/07/17 193 Signed Impressions: Service Date/Time: Sunday, May 07, 2017 19:32 - CONCLUSION: Normal examination. Claus Hill MD Abdomen/Pelvis CT 05/07/17 [id number] Signed Impressions: Service Date/Time: Sunday, May 07, 2017 21:28 - CONCLUSION: 1. No acute abnormality seen. 2. Possible small hiatal hernia. Claus Hill MD Caprini VTE Risk Assessment Caprini VTE Risk Assessment: Mod/High Risk (score >= 2) Caprini Risk Assessment Model Point Value = 1 Point Value = 2 Point Value = 3 Point Value = 5 Age 41-60 Minor surgery BMI > 25 kg/m2 Swollen legs Varicose veins or History of unexplained or recurrent spontaneous Oral contraceptives or hormone replacement Sepsis (< 1 month) Serious lung disease, including pneumonia (< 1 month) Abnormal pulmonary function Acute myocardial infarction Congestive heart failure (< 1 month) History of inflammatory bowel disease Medical patient at bed rest Age 61-74 Arthroscopic surgery Major open surgery (> 45 min) Laparoscopic surgery (> 45 min) Malignancy Confined to bed (> 72 hours) Immobilizing plaster cast Central venous access Age >= 75 History of VTE Family history of VTE Factor V Leiden Prothrombin [id number] Lupus anticoagulant Anticardiolipin antibodies Elevated serum homocysteine Heparin-induced thrombocytopenia Other congenital or acquired thrombophilia Stroke (< 1 month) Elective arthroplasty Hip, pelvis, or leg fracture Acute spinal cord injury (< 1 month) Prophylaxis Regimen Total Risk Factor Score Risk Level Prophylaxis Regimen 0-1 Low Early ambulation 2 Moderate Order ONE of the following: *Sequential Compression Device (SCD) *Heparin 5000 units SQ BID 3-4 Higher Order ONE of the following medications: *Heparin 5000 units SQ TID *Enoxaparin/Lovenox 40 mg SQ daily (WT < 150 kg, CrCl > 30 mL/min) *Enoxaparin/Lovenox 30 mg SQ daily (WT < 150 kg, CrCl > 10-29 mL/min) *Enoxaparin/Lovenox 30 mg SQ BID (WT < 150 kg, CrCl > 30 mL/min) AND/OR *Sequential Compression Device (SCD) 5 or more Highest Order ONE of the following medications: *Heparin 5000 units SQ TID (Preferred with Epidurals) *Enoxaparin/Lovenox 40 mg SQ daily (WT < 150 kg, CrCl > 30 mL/min) *Enoxaparin/Lovenox 30 mg SQ daily (WT < 150 kg, CrCl > 10-29 mL/min) *Enoxaparin/Lovenox 30 mg SQ BID (WT < 150 kg, CrCl > 30 mL/min) AND *Sequential Compression Device (SCD) Attending Statement Lumbar spinal stenosis, Continue neuro checks. I again discussed with her the alternative methods of treatment, her MRI findings correlate with her clinical symptoms. She failed conservative treatment including physical therapy, exercises, antiinflammatories and muscle relaxants, as well as, epidural steroid injections performed by an interventional pain specialist. She understands that a surgical procedure should be considered as a last resort. Unfortunately, her symptoms are getting worse and continue to affect her activities of daily living. I again discussed with her the alternative of continuing nonsurgical treatment with further pain management and physical therapy, analgesics, and antiimflammatories, versus consideration to a surgical decompression with a right L4-5 decompressive laminectomy and interbody arthrodhesis with a TLIF. I have discussed the details of the surgical decompression including the [id number] procedure, its indications, alternatives, risks, and potential complications. Risks and potential complications include, but are not limited to, infection, blood loss, CSF leak, partial or complete loss of sight in one or both eyes, paresis, paralysis, permanent pain, hoarseness or difficulty swallowing, loss of bowel or bladder function, complications from anesthesia, blood clot, stroke, myocardial infarction, or even . She understands the alternative of delaying the surgery and continue pain management. She understands that she could have an associated injury to her hip , but does not want to further delay her treatment Abdominal pain with n/v. CT Scan of the abdomen and pelvis was unremarkable, she has been seen and cleared by GI RESP: Continue aggressive pulmonary toilette, nasotracheal suction, and breathing treatments with nebulizers. Daily PT Nutrition. NPO after midnight Renal. monitor closely urine output, BUN and creatinine Endocrine. Monitor serial Acu checks and SSI as needed in detail ID Continue to monitor for signs of infection Continue Protonix for stress ulcer prophylaxis Continue Arvin hose and SCD's for DVT prophylaxis DIscussed with Real St MD May 09, 2017 15:19
[2017-05-09] MEDS ORDERED: fentaNYL 50 MCG/HR PATCH T-DERMAL SCH (17:00)
[2017-05-09] MEDS ORDERED: REMOVE OLD DURAGESIC (FENTANYL) PATCH T-DERMAL SCH (17:00)
[2017-05-09] MEDS: SODIUM CHLOR 0.9% 1000 ML INJ 1,000 ML IV SCH ×3 (17:40→23:45)
[2017-05-09] MEDS ORDERED: ceFAZolin 2 GM PREMIX 50 ML IV SCH (18:00)
[2017-05-09] MEDS ORDERED: VANCOMYCIN INJ 1,000 MG in SODIUM CHLOR 0.9% 250 ML INJ 250 ML IV SCH ×4 (18:00)
[2017-05-09] MEDS: CHLORHEXIDINE GLUCONATE 4% SOLN 120 ML BTL TOP SCH ×2 (21:00)
[2017-05-09] MEDS: REMOVE OLD NICODERM (NICOTINE) PATCH T-DERMAL SCH (21:00)
[2017-05-09] MEDS: PRAVASTATIN SOD 10 MG TAB PO SCH (21:21)
[2017-05-09] MEDS: guaiFENesin E.R. 600 MG TAB PO SCH (21:22)
--- NOTE | 2017-05-09 22:35 | RADRPT ---
EXAM DATE/TIME: 05/09/2017 21:51 [facility] COMPARISON: CHEST SINGLE AP, May 07, 2017, 19:32. INDICATIONS : Cough. MEDICAL HISTORY : Chronic obstructive pulmonary disease. Chronic back pain. SURGICAL HISTORY : Hysterectomy. ENCOUNTER: Initial ACUITY: 3 days PAIN SCORE: 0/10 LOCATION: Bilateral chest FINDINGS: A single view of the chest demonstrates the lungs to be symmetrically aerated without evidence of mas s, infiltrate or effusion. The cardiomediastinal contours are unremarkable. Osseous structures are intact. CONCLUSION: No acute disease. Claus Hill MD on May 09, 2017 at 22:33 Board Certified Radiologist. This report was verified electronically.
[2017-05-09] MEDS: DEXT 5%-NACL 0.45% 1000 ML INJ 1,000 ML IV SCH (23:45)
[2017-05-10] VITALS (8 sets, daily range): BP systolic 120–125; BP diastolic 63–70; PULSE 63–80; RESP 18–20; TEMP 97.6–98.2; O2SAT 97–98
[2017-05-10] MEDS: DEXT 5%-NACL 0.45% 1000 ML INJ 1,000 ML IV SCH (00:22)
[2017-05-10] MEDS: SODIUM CHLOR 0.9% 1000 ML INJ 1,000 ML IV SCH ×2 (00:27→03:52)
[2017-05-10 00:46] LABS: AUTOMATED NEUTROPHIL # 8.2 TH/MM3 (1.8-7.7); HEMATOCRIT 35.1 % (35.0-46.0); LYMPH % 5.7 % (9.0-44.0); LYMPHOCYTE # 0.5 TH/MM3 (1.0-4.8); MEAN CELL VOLUME 90.4 FL (80.0-100.0); MEAN CORPUSCULAR HEMOGLOBIN 30.2 PG (27.0-34.0); MEAN CORPUSCULAR HGB CONC 33.3 % (32.0-36.0); MONO % 8.6 % (0.0-8.0); NEUT % 85.7 % (16.0-70.0); PLATELET COUNT 115 TH/MM3 (150-450); RED BLOOD COUNT 3.89 MIL/MM3 (4.00-5.30); RED CELL DISTRIBUTION WIDTH 13.9 % (11.6-17.2); WHITE BLOOD COUNT 9.6 TH/MM3 (4.0-11.0)
[2017-05-10 00:50] LABS: HEMO FLAGS AUTO DIFF
[2017-05-10 00:56] LABS: INTERNATIONAL NORMALIZED RATIO 0.9 RATIO; PROTHROMBIN TIME - PATIENT 10.3 SEC (9.8-11.6)
[2017-05-10 01:04] LABS: BICARBONATE 25.9 MEQ/L (21.0-32.0); POTASSIUM 3.5 MEQ/L (3.5-5.1)
[2017-05-10 01:26] LABS: BANDS 21 % (0-6); METAMYELOCYTES 1 % (0-1); NEUTROPHIL # MANUAL DIFF 8.6 TH/MM3 (1.8-7.7); POLYS (SEG NEUTROPHILS) 68 % (16-70); WBC DIFF SAMPLE 100
[2017-05-10 01:27] LABS: SCAN/DIFF FINAL DIFF MANUAL
[2017-05-10 01:28] LABS: DOHLE BODIES PRESENT (NONE SEEN); PLATELET ESTIMATE SMEAR LOW (NORMAL); PLATELET MORPHOLOGY NORMAL (NORMAL)
[2017-05-10] MEDS: MORPHINE SULFATE 4 MG/ML INJ IV PUSH PRN ×2 (02:32→05:38)
[2017-05-10] MEDS ORDERED: THROMBIN (TOPICAL) 5,000 UNIT VIAL ONE (07:02)
[2017-05-10] MEDS ORDERED: GENTAMICIN SULFATE 80 MG/2 ML VIAL ONE (07:03)
[2017-05-10] MEDS ORDERED: GELFOAM SIZE 100 ONE (07:03)
--- NOTE | 2017-05-10 07:42 | HHI.PR ---
Subjective Remarks Patient continues to have radiating back pain which makes it difficult to walk. Denies and CP or SOB. Feels like she is completely helpless. She will be going to surgery this AM Objective Vital Signs Date Time Temp Pulse Resp B/P (MAP) Pulse Ox O2 Delivery O2 Flow Rate FiO2 05/10/17 04:30 98.2 80 18 125/70 (88) 98 05/10/17 04:15 79 05/10/17 01:30 76 05/10/17 01:13 98 21 05/09/17 23:54 98.3 80 18 122/73 (89) 98 05/09/17 21:15 93 05/09/17 19:32 98.0 89 18 132/64 (86) 96 05/09/17 18:45 20 05/09/17 16:18 20 05/09/17 15:26 99.0 89 20 140/66 (90) 97 05/09/17 11:34 98.1 78 18 111/63 (79) 97 05/09/17 08:43 96 Nasal Cannula 3.00 05/09/17 08:00 79 05/09/17 07:41 99.1 82 17 120/68 (85) 95 I/O 05/09/17 05/09/17 05/09/17 05/10/17 05/10/17 05/10/17 07:00 15:00 23:00 07:00 15:00 23:00 Intake Total 200 ml 50 ml 0 ml Balance 200 ml 50 ml 0 ml Intake Oral 200 ml 50 ml IV Total 0 ml Result Diagram: 05/09/17 2330 05/09/17 2330 Imaging Last 72 hours Impressions Chest X-Ray 05/09/17 0000 Signed Impressions: Service Date/Time: Tuesday, May 09, 2017 21:51 - CONCLUSION: No acute disease. Claus Hill MD Lumbar Spine MRI 05/08/17 0000 Signed Impressions: Service Date/Time: Monday, May 08, 2017 13:59 - CONCLUSION: 1. Scattered degenerative changes. Most pronounced at L4-L5 with abutment of the right L4 nerve root within the neural foramen and potential source for right L4 radiculopathy. Each level detailed in the above discussion. Luigi Nolen Jr., MD Chest X-Ray 05/07/17 1936 Signed Impressions: Service Date/Time: Sunday, May 07, 2017 19:32 - CONCLUSION: Normal examination. Claus Hill MD Abdomen/Pelvis CT 05/07/17 193 Signed Impressions: Service Date/Time: Sunday, May 07, 2017 21:28 - CONCLUSION: 1. No acute abnormality seen. 2. Possible small hiatal hernia. Claus Hill MD Objective Remarks GENERAL: Alert and oriented. SKIN: Warm and dry. HEAD: Normocephalic. EYES: No scleral icterus. No injection or drainage. NECK: Supple, trachea midline. No JVD or lymphadenopathy. CARDIOVASCULAR: Regular rate and rhythm without murmurs, gallops, or rubs. RESPIRATORY: Breath sounds equal bilaterally. No accessory muscle use. GASTROINTESTINAL: Abdomen soft, non-tender, nondistended. MUSCULOSKELETAL: No cyanosis, or edema. BACK: Nontender without obvious deformity. No CVA tenderness. Medications and IVs Current Medications Medications (Trade) Dose Ordered Sig/Misael Route Start Time Stop Time Status Last Admin (NS Flush) 2 ml UNSCH PRN IV FLUSH 05/07/17 19:45 (Zofran Inj) 4 mg Q6H PRN IV 05/07/17 23:45 (Tylenol) 650 mg Q4H PRN PO 05/07/17 23:45 05/08/17 17:56 (Tylenol Supp) 650 mg Q4H PRN RECTAL 05/07/17 23:45 (Morphine Inj) 2 mg Q2H PRN IV PUSH 05/07/17 23:45 05/10/17 05:38 (Zoloft) 25 mg DAILY PO 05/08/17 09:00 05/09/17 09:14 (Pravachol) 10 mg HS PO 05/08/17 21:00 05/09/17 21:21 (Pill Splitter) 1 ea UNSCH PRN OTHER 05/08/17 00:15 (Flexeril) 10 mg Q8H PRN PO 05/08/17 06:30 05/09/17 21:46 (Duoneb Neb) 1 ampule Q6HR NEB PRN NEB 05/08/17 06:30 (Zithromax) 250 mg Taper DAILY PO 05/08/17 08:00 05/13/17 07:59 05/09/17 09:14 (Habitrol 21 Mg Patch.24 Hr) 1 patch DAILY TD 05/08/17 09:00 Miscellaneous Information 1 HS T-DERMAL 05/08/17 21:00 (Catapres) 0.1 mg Q12HR PO 05/08/17 13:00 05/09/17 21:21 (KCl) 20 meq Q12HR PO 05/08/17 13:00 05/09/17 21:21 (Mucinex Er) 600 mg BID PO 05/09/17 21:00 05/09/17 21:22 (Protonix) 40 mg DAILY PO 05/10/17 09:00 Sodium Chloride 1,000 ml @ 100 mls/hr Q10H IV 05/09/17 13:04 05/09/17 23:45 (Hibiclens 4% Top Soln) 1 applic HS TOP 05/09/17 21:00 05/10/17 21:01 (Duragesic 50 Mcg Patch.72 Hr) 1 patch Q3D T-DERMAL 05/09/17 17:00 05/09/17 17:45 Miscellaneous Information 1 Q3D T-DERMAL 05/09/17 17:00 05/09/17 17:00 Sodium Chloride 1,000 ml @ 100 mls/hr Q10H IV 05/09/17 17:52 Cefazolin Sodium/ Dextrose 50 ml @ 150 mls/hr ANALOG [employer] DESIGNER IV 05/09/17 18:00 Vancomycin HCl 1000 mg/Sodium Chloride 250 ml @ 250 mls/hr ANALOG [employer] DESIGNER IV 05/09/17 18:00 (Hibiclens 4% Top Soln) 1 applic HS TOP 05/09/17 21:00 05/10/17 21:01 Dextrose/Sodium Chloride 1,000 ml @ 42 mls/hr [id number] IV 05/09/17 21:30 05/09/17 23:45 Last 72 hours Impressions Chest X-Ray 05/09/17 0000 Signed Impressions: Service Date/Time: Tuesday, May 09, 2017 21:51 - CONCLUSION: No acute disease. Claus Hill MD Lumbar Spine MRI 05/08/17 0000 Signed Impressions: Service Date/Time: Monday, May 08, 2017 13:59 - CONCLUSION: 1. Scattered degenerative changes. Most pronounced at L4-L5 with abutment of the right L4 nerve root within the neural foramen and potential source for right L4 radiculopathy. Each level detailed in the above discussion. Luigi Nolen Jr., MD Chest X-Ray 05/07/171935 Signed Impressions: Service Date/Time: Sunday, May 07, 2017 19:32 - CONCLUSION: Normal examination. Claus Hill MD Abdomen/Pelvis CT 05/07/171935 Signed Impressions: Service Date/Time: Sunday, May 07, 2017 21:28 - CONCLUSION: 1. No acute abnormality seen. 2. Possible small hiatal hernia. Claus Hill MD Assessment and Plan Problem List: (1) Abdominal pain ICD Codes: R10.9 - Unspecified abdominal pain (2) Back pain ICD Codes: M54.9 - Dorsalgia, unspecified (3) Depression ICD Codes: F32.9 - Major depressive disorder, single episode, unspecified (4) Tobacco abuse ICD Codes: Z72.0 - Tobacco use (5) COPD (chronic obstructive pulmonary disease) with acute bronchitis ICD Codes: J44.0 - Chronic obstructive pulmonary disease with acute lower respiratory infection Assessment and Plan 05/08/17 Abdominal pain- GI consulted Presented to ED with abdominal pain for 1 day. Nausea and vomiting reported. The pain was so intense that she was awaken from sleep. She was not able to even stand initially and crawled to bathroom. Abdomen only mildly tender on palpation no guarding present. Pain spasmatic radiating to back. Has morphine for pain. CT of abdomen with no acute abnormality found. Small hiatal hernia. On IV Protonix and IVF's. Zofran PRN Back pain: Patient with pain radiating to back. Is spasmodic in nature. No fall reported. Will order muscle relaxer and imaging. COPD with acute bronchitis- Lung sounds are rhonchi and WBC elevated at 14.3 will start Azithromycin and breathing treatments. Depression - continue zoloft. Reported that her mother on April 10 and she has been very depressed. HLD- continue statin DVT and GI prophylaxis ordered. 05/09/17 Abdominal pain- GI consulted and cleared. Will need to reconsult for further or continued problems. Presented to ED with abdominal pain for 1 day. Nausea and vomiting reported. The pain was so intense that she was awaken from sleep. She was not able to even stand initially and crawled to bathroom. Abdomen non tender on palpation no guarding present. Pain spasmatic radiating to back. Has morphine for pain. CT of abdomen with no acute abnormality found. Small hiatal hernia. On IV Protonix changed to PO. Zofran PRN Back pain: Patient with pain radiating to back. Is spasmodic in nature. No fall reported. On muscle relaxer and IV morphine. Imaging with lumbar spinal stenosis. Neuro checks in a serial fashion. Nonoperative treatment with analgesics versus pain management. A surgical decompression will be offered as a last resort only per Neurosurgeon note. Discussed with Dr. Cowart interventional radiology consulted for epidural steroid injection. Fentanyl patch increased per Dr. Cowart. Gaudencio hold PT today. COPD with acute bronchitis- Lung sounds are rhonchi on Azithromycin and breathing treatments. Mucinex added. Depression - continue zoloft. Reported that her mother on April 10 and she has been very depressed. HLD- continue statin 05/10/17 Abdominal pain- Resolved Back pain: Patient with pain radiating to back. Is spasmodic in nature. No fall reported. On muscle relaxer and IV morphine. Imaging with lumbar spinal stenosis. Neuro checks in a serial fashion. Nonoperative treatment with analgesics versus pain management. A surgical decompression will be offered as a last resort only per Neurosurgeon note. Discussed with Dr. Cowart interventional radiology consulted for epidural steroid injection. Fentanyl patch increased per Dr. Cowart. Plan for laminectomy today. Hyponatremia: NA 132 this AM. Will continue to monitor and recheck in AM COPD with acute bronchitis- Azithromycin and breathing treatments. Mucinex added. Chest Xray with no acute findings. Lung sounds improved Depression - continue zoloft. HLD- continue statin GI prophylaxis ordered Lovenox on hold for surgery. Patient is medically cleared for surgery labs and chest Xray reviewed. I and the NUTRITION CONSULTANT have both examined this patient and reviewed this note and I agree with these findings and plan of care. Hawa Reilly. [facility] May 10, 2017 07:42
[2017-05-10] MEDS ORDERED: MIDAZOLAM HCL 2 MG/2 ML VIAL ONE (07:44)
[2017-05-10] MEDS ORDERED: ACETAMINOPHEN 1000 MG/100 ML 100 ML IV ONE (07:44)
[2017-05-10] MEDS ORDERED: ARTIFICIAL TEARS OPTH OINT 3.5 APPLIC/3.5 GM TUBO ONE (07:44)
[2017-05-10] MEDS ORDERED: FAMOTIDINE 20 MG/2 ML VIAL ONE (07:45)
[2017-05-10] MEDS ORDERED: SODIUM CHLORIDE 0.9% INJ 100 ML ONE (08:01)
[2017-05-10 08:28] LABS: INTERNATIONAL NORMALIZED RATIO 0.9 RATIO; PROTHROMBIN TIME - PATIENT 10.2 SEC (9.8-11.6)
[2017-05-10 08:30] LABS: HEMATOCRIT 34.7 % (35.0-46.0); MEAN CELL VOLUME 90.5 FL (80.0-100.0); MEAN CORPUSCULAR HEMOGLOBIN 30.5 PG (27.0-34.0); MEAN CORPUSCULAR HGB CONC 33.7 % (32.0-36.0); PLATELET COUNT 109 TH/MM3 (150-450); RED BLOOD COUNT 3.84 MIL/MM3 (4.00-5.30); RED CELL DISTRIBUTION WIDTH 13.9 % (11.6-17.2); WHITE BLOOD COUNT 9.9 TH/MM3 (4.0-11.0)
[2017-05-10 08:42] LABS: REVIEW FLAG FINAL
[2017-05-10 08:50] LABS: BICARBONATE 24.1 MEQ/L (21.0-32.0); POTASSIUM 3.7 MEQ/L (3.5-5.1)
[2017-05-10] MEDS ORDERED: PANTOPRAZOLE SOD 40 MG DELAYED RELEASE TAB PO SCH (09:00)
[2017-05-10] MEDS ORDERED: ONDANSETRON HCL 4 MG/2 ML VIAL IV PUSH ONE (10:00)
[2017-05-10] MEDS ORDERED: PROPOFOL 200 MG/20 ML AMP IV ONE (10:00)
[2017-05-10] MEDS ORDERED: PHENYLEPH/NS 1000 MCG/10 ML SYR IV ONE (10:00)
[2017-05-10] MEDS ORDERED: LACTATED RINGER'S 1000 ML INJ 1,000 ML IV ONE (10:00)
[2017-05-10] MEDS ORDERED: BUPIVACAINE HCL PF 0.5% 30 ML VIAL ONE (11:26)
[2017-05-10] MEDS ORDERED: NALOXONE HCL 0.4 MG/ML AMP IV PRN (11:45)
[2017-05-10] MEDS ORDERED: SODIUM CHLORIDE 0.9% FLUSH 5 ML FLUSH IVF PRN (11:45)
[2017-05-10] MEDS ORDERED: DO NOT ADM ANY ANTICOAGULANT DRUGS PRN (12:15)
[2017-05-10] MEDS: NS + KCL 20 MEQ INJ 1,000 ML IV SCH (12:18)
[2017-05-10] MEDS: HYDROmorphone HCL PCA 6 MG/30 ML IV SCH (12:42)
[2017-05-10] MEDS ORDERED: diphenhydrAMINE HCL 50 MG/ML VIAL IV PRN (13:00)
[2017-05-10] MEDS ORDERED: ACETAMINOPHEN 325 MG TAB PO PRN (13:00)
--- NOTE | 2017-05-10 14:02 | RADRPT ---
EXAM DATE/TIME: 05/10/2017 09:38 [place] COMPARISON: No previous studies available for comparison. INDICATIONS : Stenosis, hernaited disk, hardware placement. MEDICAL HISTORY : None. SURGICAL HISTORY : None. ENCOUNTER: Initial ACUITY: 1 day PAIN SCORE: 0/10 LOCATION: Lumbar spine FINDINGS: AP and lateral cone-down views of the lower lumbar spine were obtained and demonstrate that the patie nt is status post fusion at the L4-5 level with bilateral pedicle screws and posterior fixation rods. There is a metallic device in the intervertebral space. There is disc space narrowing and hypertroph ic change at this level. There is a mild grade 1 anterospondylolisthesis of L3 on L4. The study is la beled assuming 5 nonrib-bearing lumbar type vertebra. CONCLUSION: 1. Status post fusion at the L4-5 level. 2. Mild grade 1 anterior spondylolisthesis of L3 on L4. Braden Paniagua MD on May 10, 2017 at 13:59 Board Certified Radiologist. This report was verified electronically.
--- NOTE | 2017-05-10 14:46 | PD.OP ---
Operative Report Date of Surgery: May 10, 2017 Preoperative Diagnosis: Severe lumbar spondylosis at L4-5 Postoperative Diagnosis: Severe lumbar spondylosis at L4-5 Procedure: L4-5 laminectomy, interbody arthrodhesis using PEEK cage and autologous bone graft, L4-5 instrumental fixation using transpedicular screws and rods, L4-5 posterolateral fusion using autologous bone graft and rods. Microsurgical dissection Anesthesia: general Surgeon: Real Arnold Camp Director(s): Esthela Flores Operation and Findings: INDICATIONS FOR THE SURGICAL PROCEDURE ms Escobedo is a 66 year-old female who presented with intractable mechanical back pain and ernie evidence of bilateral L5 lower extremity radiculopathy. She has severe spondylosis with significant loss of disk space at L4-5 and neural impringement. She failed maximum nonsurgical management including multiple modalities of conservative treatment as well as pain management interventions by an interventional pain specialist. A surgical decompression and arthrodhesis were indicated as a last resort. The [id number] details of the procedure, indications, alternatives, risks and potential complications were fully discussed with the patient. The patient fully understood. All the questions were answered. No guarantees were given. The patient voiced requesting the procedure and provided informed consents. The patient was offered the alternative of delaying the procedure and continuing with nonsurgical management. DETAILS OF THE SURGICAL PROCEDURE Prior to the procedure, the surgical incision was marked in the preoperative surgical holding room, and the procedure, risks, and potential complications revisited with the patient. Placement of electrodes for intraoperative neurophysiological monitoring was completed. The patient was taken to the operative room, and following induction of general anesthesia, endotracheal intubation was performed. A Felton catheter, bilateral BELINDA hose and sequential compression devices were placed and kept throughout the procedure. The patient was positioned prone, over a Holland table over a Chito frame. All pressure in the preoperative surgical holding room points were carefully padded with eggcrate and gel mattress. The eyes were tapped shut after ointment was applied by the anesthesiologist to prevent corneal abrasion. A Delmar hugger was placed over the expossed lower body to maintain control of the core body temperature. The electrophysiological team placed the needles and electrodes in their proper location and baseline SSEP's and motor evoked potentials were registered prior and following the positioning. The entrance to each pedicles was marked using a C arm. The lumbar region was prepped and draped in the usual sterile fashion. The surgical procedure was performed in several steps as follow: SURGICAL APPROACH Once the patient was positioned, a localizing cross-table lateral x-ray was performed with a C-arm. Two paramedian small incisions were outlined on the skin approximately 3cm from the midline. The skin incisions were made with a # 10 blade. Small bleeders were controlled with the cautery. The dissection was then carried out into deper planes and through the thoracolumbar fascia with a Bovie. The intermuscular septum was identified and the myscles were blunted dissected along the septum. The facets and transverse process of L4, L5 and S1 were exposed and the proper anatomical landmarks were identified. A microsurgical self-retaining retractor was placed on the incision, and a localizing lateralizing cross-table x-ray was performed with an instrument underneath a lamina of the lumbar spine. There was a bilateral pars defect with gross instability of the bony structures. INSTRUMENTAL FIXATION At this point in the procedure, placement of bilateral transpedicular screws was necessary for stabilization of the spine. Initially, the entry point for the screw was selected anatomically at the junction of the facet, with the transverse process, and the pars interarticularis at L5 and at the sacrum. This was started with a Giamshetti needle, followed by the use of an whiting wire, and then a tap was used to create the threads for the screws. Finally bilateral transpedicular screws were carefully placed bilaterally at L4, L5 under fluoroscopic visualization. An appropriate purchase was achieved with all screws. The position of each screw was assessed anatomically with an AP, lateral , oblique Xrays. An intraoperative scan view of the spine was then performed using the iso-centric c-arm. Each screw was then assessed electrophysiologically with a nerve stimulator. SURGICAL DECOMPRESSION There was significant mass effect with compression of the neural structures. In order to relieve neural compression, it was necessary to perform a decompressive laminectomy, with decompression of the spinal canal and bilateral lateral recesses. Note that the scope of such decompression was significantly more extensive than the minimal exposure necessary to perform an interbody fusion, as there was extreme facet arthropathy with near complete collapse of the disk spaces and severe stenosis cause by the hyperthrophic joint facets. At this point of the procedure the operative microscope was draped in the usual sterile fashion and brought to the field. The rest of the surgical procedure was performed using microdissection technique with the exception of the closure. Under the operating microscope, a decompressive laminectomy was carried out at L4-5 as follow: The laminae, base of the spinous processes and facets were carefully drilled exposing the ligamentum flavum. The facets were abnormal with severe facet arthropathy, vacuum facets, and mass effect over the neural structures. A broad disk protusion was contributing to compression of the neural structures and exiting L5 nerve root. A near complete facetectomy was necessary resulting in further mechanical instability. The ligamentum flavum appeared hypertrophic, resulting on mass effect on the dorsal surface of the neural structures. The superior free border of the ligamentum flavum was elevated with a ligament dissector and the ligamentum flavum was removed with a 3 and 4 mm Kerrison forceps. The ligament was very adherent to the dural sac and during the dissection, ans extreme care was taken during the dissection. The exiting nerve roots were identified, and a wide foraminotomy was performed with a Kerrison in their trajectory towards the neural foramenat both levels. Epidural veins located laterally to the dural sac were coagulated with the bipolar cautery, and then incised using microscissors. Gentle medial retraction of the dural sac allowed me to expose the disc space for the discectomy. Upon completion of the discectomy, an excellent decompression of the neural structures was achieved. INTERBODY ARTHRODHESIS In order to correct the narrowing of the disk space and maintain distraction of the space, and to achieve a solid interbody fusion, it was necessary the insertion of an interbody device into the disk space. Otherwise, the disk space would collapse, compromising the result of the surgical procedure. At this point of the procedure, the annulus fibrosus of the disk was carefully coagulated with a bipolar cautery and incised using an 11 bladed knife. Then, a microdiscectomy was carried out in a standard fashion using a combination of straight and up-biting pituitary forceps. A reverse angle curette was applied underneath the posterior longitudinal ligament, and used to push the disk fragments into the disk space, so they can be safely removed with a pituitary forceps. Once the discectomy was completed, it was necessary to decorticate the endplates, in order to eliminate the cartilaginous endplate and to expose healthy bone appropriate to perform the interbody fusion. The endplates at L4-5 were then thoroughly decorticated using increasing size bone helio and ring curets, eliminating the cartilaginous fragments from both, the superior and inferior endplates. A disk space distractor was applied to the pedicle screws and gentle distraction was applied. This maneuver was assisted by the use of a disk distractor. Once a thorough preparation of the disk space was achieved, the disk space was irrigated with antibiotic solution, and the interbody fusion was performed by carefully impacting expandable PPEK cages filled with autologous iliac crest bone graft. The cages were properly deployed and thereafter packed with further bone graft by the use of a funnel. A solid position of the cage with good purchase was achieved at both levels. The position of the cage was assessed anatomically with a probe and radiologically with the C-arm. POSTEROLATERAL FUSION The posterolateral fusion is a critical component to the procedure, to prevent future fatigue and failure of the instrumental fixation. Initially, the transverse processes of the vertebral bodies, lateral surface of the facets and the lateral gutters of the spine were carefully cleaned, eliminating all soft tissue and muscle attachments. The area was then irrigated with a large amount of antibiotic solution. Subsequently, the transverse processes, lateral surface of the facets, and lateral gutters of the spine were thoroughly decorticated using the TPS drill with a 5mm cutting trisha, exposing cancellous bone, in preparation for the posterolateral fusion. The incision was again irrigated with antibiotic solution. Then, the posterolateral fusion was then performed by carefully packing the lateral gutters of the spine at L4-5 with autologous bone combined with demineralized bone matrix. I packed as much bone as possible. COMPLETION OF THE INSTRUMENTATION AND CLOSURE The rods were brought to the field, applied to all the screws, and the screw caps were sequentially applied. Compression was performed between the pedicle screws, and final tightening of the screws was completed using a torque wrench The incision was again thoroughly irrigated with several liters of antibiotic solution, and hemostasis secured with the bipolar cautery. A Valsalva Maneuver performed by the anesthesiologist failed to show any evidence of cerebrospinal fluid leak or bleeding. A 7 mm Holland-Rosen drain was left in the epidural space and externalized through a separate stab incision. The incision was then closed in planes. 0 Vicryl was used in an interrupted fashion to close the thoracolumbar fascia and the superficial fascia. The subcutaneous tissue was then approximated using 3-0 Vicryl in an interrupted fashion. Special care was taken to avoid space. The skin was then closed with 4-0 Vicryl in a running, subcuticular fashion. Dermabond was applied to the skin. Each plane of closure was irrigated with antibiotic solution. At the end of the procedure the sponge, needle and instrument counts were all correct. Estimated blood loss was 150 cc or less. No blood transfusion was given. The entire procedure was performed using continuous electrophysiological monitoring of the somatosensorial evoked potentials and EMG. The patient received prophylactic antibiotics. The patient was then extubated and transferred to the recovery room in stable condition. Real Arnold MD May 10, 2017 14:46
[2017-05-10] MEDS: PCA - TOTAL MG DILAUDID DELIVERED PER SHIFT SCH ×2 (17:01→22:40)
[2017-05-10] MEDS: CHLORHEXIDINE GLUCONATE 4% SOLN 120 ML BTL TOP SCH ×2 (21:00)
[2017-05-10] MEDS: guaiFENesin E.R. 600 MG TAB PO SCH ×2 (21:49→22:41)
[2017-05-10] MEDS: POTASSIUM CHLORIDE 20 MEQ CONTROLLED RELEASE TAB PO SCH ×2 (21:50→22:41)
[2017-05-10] MEDS: cloNIDine HCL 0.1 MG TAB PO SCH ×2 (21:50→22:20)
[2017-05-10] MEDS: PRAVASTATIN SOD 10 MG TAB PO SCH (21:51)
[2017-05-10] MEDS: SODIUM CHLORIDE 0.9% FLUSH 5 ML FLUSH IVF SCH (22:00)
[2017-05-10] MEDS: REMOVE OLD NICODERM (NICOTINE) PATCH T-DERMAL SCH (22:00)
[2017-05-10] MEDS: CYCLOBENZAPRINE HCL 10 MG TAB PO PRN (22:05)
[2017-05-10] MEDS: ceFAZolin 2 GM PREMIX 50 ML IV SCH (22:07)
[2017-05-11] VITALS (7 sets, daily range): BP systolic 97–137; BP diastolic 52–97; PULSE 59–82; RESP 18–20; TEMP 97.7–99.1; O2SAT 90–97
[2017-05-11] MEDS: ceFAZolin 2 GM PREMIX 50 ML IV SCH ×2 (04:12→11:24)
[2017-05-11] MEDS: NS + KCL 20 MEQ INJ 1,000 ML IV SCH ×2 (04:49→11:24)
[2017-05-11] MEDS: PCA - TOTAL MG DILAUDID DELIVERED PER SHIFT SCH ×2 (06:00→13:59)
--- NOTE | 2017-05-11 06:34 | HHI.PR ---
Subjective Remarks S/P L4-5 laminectomy- POD #1. GULSHAN drain in place. Denies and CP or SOB. Dilaudid POLITICAL SCIENTIST pump controlling pain well. Objective Vital Signs Date Time Temp Pulse Resp B/P (MAP) Pulse Ox O2 Delivery O2 Flow Rate FiO2 05/11/17 04:00 97.7 63 20 137/64 (88) 95 05/11/17 00:00 97.8 68 20 105/59 (74) 90 05/10/17 23:43 63 05/10/17 21:40 Nasal Cannula 2.00 05/10/17 20:00 97.6 69 20 124/64 (84) 98 05/10/17 18:31 Nasal Cannula 2.00 05/10/17 17:33 98.0 64 18 120/63 (82) 97 05/10/17 17:01 16 05/10/17 17:00 66 18 109/62 (78) 97 Nasal Cannula 2 05/10/17 16:00 97.8 63 18 98/57 (71) 96 Nasal Cannula 2 05/10/17 15:00 69 18 107/59 (75) 95 Nasal Cannula 2 05/10/17 14:00 63 18 109/58 (75) 96 Nasal Cannula 2 05/10/17 13:15 66 18 97/60 (72) 95 Nasal Cannula 2 05/10/17 13:12 16 05/10/17 13:00 68 18 94/56 (69) 96 Nasal Cannula 2 05/10/17 12:45 74 18 111/62 (78) 94 Nasal Cannula 2 05/10/17 12:42 16 05/10/17 12:30 78 18 107/58 (74) 92 Nasal Cannula 2 05/10/17 12:16 99.3 79 18 97/74 (82) 93 Nasal Cannula 2 05/10/17 07:30 73 I/O 05/10/17 05/10/17 05/10/17 05/11/17 05/11/17 05/11/17 06:59 14:59 22:59 06:59 14:59 22:59 Intake Total 1500 ml 470 ml Output Total 450 ml 730 ml 300 ml Balance 1050 ml -260 ml -300 ml IV Total 470 ml Other 1500 ml Output Urine Total 450 ml 700 ml 275 ml Drainage Total 30 ml 25 ml Result Diagram: 05/10/17 0656 05/10/17 0656 Imaging Last 72 hours Impressions Lumbar Spine X-Ray 05/10/17 0000 Signed Impressions: Service Date/Time: April 09:38 - CONCLUSION: 1. Status post fusion at the L4-5 level. 2. Mild grade 1 anterior spondylolisthesis of L3 on L4. Braden Paniagua MD Chest X-Ray 05/09/17 0000 Signed Impressions: Service Date/Time: Tuesday, May 09, 2017 21:51 - CONCLUSION: No acute disease. Claus Hill MD Procedures S/P L4-L5 laminectomy on 05/10/17 Objective Remarks GENERAL: Alert and oriented. SKIN: Warm and dry. Dressing intact on lower back. GULSHAN drain in place. HEAD: Normocephalic. EYES: No scleral icterus. No injection or drainage. NECK: Supple, trachea midline. No JVD or lymphadenopathy. CARDIOVASCULAR: Regular rate and rhythm without murmurs, gallops, or rubs. RESPIRATORY: Breath sounds equal bilaterally. No accessory muscle use. GASTROINTESTINAL: Abdomen soft, non-tender, nondistended. MUSCULOSKELETAL: No cyanosis, or edema. BACK: Nontender without obvious deformity. No CVA tenderness. Medications and IVs Current Medications Medications (Trade) Dose Ordered Sig/Misael Route Start Time Stop Time Status Last Admin (Zofran Inj) 4 mg Q6H PRN IV 05/07/17 23:45 (Tylenol) 650 mg Q4H PRN PO 05/07/17 23:45 05/08/17 17:56 (Tylenol Supp) 650 mg Q4H PRN RECTAL 05/07/17 23:45 (Zoloft) 25 mg DAILY PO 05/08/17 09:00 05/09/17 09:14 (Pravachol) 10 mg HS PO 05/08/17 21:00 05/09/17 21:21 (Pill Splitter) 1 ea UNSCH PRN OTHER 05/08/17 00:15 (Flexeril) 10 mg Q8H PRN PO 05/08/17 06:30 05/10/17 22:05 (Duoneb Neb) 1 ampule Q6HR NEB PRN NEB 05/08/17 06:30 (Zithromax) 250 mg Taper DAILY PO 05/08/17 08:00 05/13/17 07:59 05/09/17 09:14 (Habitrol 21 Mg Patch.24 Hr) 1 patch DAILY TD 05/08/17 09:00 Miscellaneous Information 1 HS T-DERMAL 05/08/17 21:00 (Catapres) 0.1 mg Q12HR PO 05/08/17 13:00 05/10/17 22:20 (KCl) 20 meq Q12HR PO 05/08/17 13:00 05/09/17 21:21 (Mucinex Er) 600 mg BID PO 05/09/17 21:00 05/09/17 21:22 (Duragesic 50 Mcg Patch.72 Hr) 1 patch Q3D T-DERMAL 05/09/17 17:00 05/09/17 17:45 Miscellaneous Information 1 Q3D T-DERMAL 05/09/17 17:00 05/09/17 17:00 Cefazolin Sodium/ Dextrose 50 ml @ 150 mls/hr PAINTER MAINTENANCE IV 05/09/17 18:00 05/10/17 11:03 Vancomycin HCl 1000 mg/Sodium Chloride 250 ml @ 250 mls/hr PAINTER MAINTENANCE IV 05/09/17 18:00 05/10/17 11:04 Dextrose/Sodium Chloride 1,000 ml @ 42 mls/hr [id number] IV 05/09/17 21:30 05/09/17 23:45 Potassium Chloride/Sodium Chloride 1,000 ml @ 100 mls/hr Q10H IV 05/10/17 13:00 05/11/17 04:49 (NS Flush) 2 ml UNSCH PRN IVF 05/10/17 11:45 (NS Flush) 2 ml BID IVF 05/10/17 21:00 05/10/17 22:00 Cefazolin Sodium/ Dextrose 50 ml @ 100 mls/hr Q8H IV 05/10/17 20:00 05/11/17 12:29 05/11/17 04:12 (Protonix Inj) 40 mg DAILY IVP 05/11/17 09:00 (Morphine Inj) 2 mg Q2H PRN IV PUSH 05/10/17 13:00 (Morphine Inj) 4 mg Q2H PRN IV PUSH 05/10/17 13:00 (Tylenol) 650 mg Q4H PRN PO 05/10/17 13:00 (Narcan Inj) 0.4 mg UNSCH PRN IV 05/10/17 11:45 (Benadryl Inj) 25 mg Q6H PRN IV 05/10/17 13:00 (Dilaudid POLITICAL SCIENTIST Inj) 6 mg UNSCH IV 05/10/17 11:45 05/10/17 12:42 POLITICAL SCIENTIST Dosage Infused (Pha) 1 Q8HR .XX 05/10/17 14:00 05/10/17 22:40 Miscellaneous Information ALL NURSING DEPARTME... UNSCH PRN .XX 05/10/17 12:15 05/11/17 12:14 Assessment and Plan Problem List: (1) Status post lumbar laminectomy ICD Codes: Z98.890 - Other specified postprocedural states (2) Back pain ICD Codes: M54.9 - Dorsalgia, unspecified (3) Depression ICD Codes: F32.9 - Major depressive disorder, single episode, unspecified (4) Tobacco abuse ICD Codes: Z72.0 - Tobacco use (5) COPD (chronic obstructive pulmonary disease) with acute bronchitis ICD Codes: J44.0 - Chronic obstructive pulmonary disease with acute lower respiratory infection (6) Abdominal pain ICD Codes: R10.9 - Unspecified abdominal pain Assessment and Plan 05/08/17 Abdominal pain- GI consulted Presented to ED with abdominal pain for 1 day. Nausea and vomiting reported. The pain was so intense that she was awaken from sleep. She was not able to even stand initially and crawled to bathroom. Abdomen only mildly tender on palpation no guarding present. Pain spasmatic radiating to back. Has morphine for pain. CT of abdomen with no acute abnormality found. Small hiatal hernia. On IV Protonix and IVF's. Zofran PRN Back pain: Patient with pain radiating to back. Is spasmodic in nature. No fall reported. Will order muscle relaxer and imaging. COPD with acute bronchitis- Lung sounds are rhonchi and WBC elevated at 14.3 will start Azithromycin and breathing treatments. Depression - continue zoloft. Reported that her mother on April 10 and she has been very depressed. HLD- continue statin DVT and GI prophylaxis ordered. 05/09/17 Abdominal pain- GI consulted and cleared. Will need to reconsult for further or continued problems. Presented to ED with abdominal pain for 1 day. Nausea and vomiting reported. The pain was so intense that she was awaken from sleep. She was not able to even stand initially and crawled to bathroom. Abdomen non tender on palpation no guarding present. Pain spasmatic radiating to back. Has morphine for pain. CT of abdomen with no acute abnormality found. Small hiatal hernia. On IV Protonix changed to PO. Zofran PRN Back pain: Patient with pain radiating to back. Is spasmodic in nature. No fall reported. On muscle relaxer and IV morphine. Imaging with lumbar spinal stenosis. Neuro checks in a serial fashion. Nonoperative treatment with analgesics versus pain management. A surgical decompression will be offered as a last resort only per Neurosurgeon note. Discussed with Dr. Cowart interventional radiology consulted for epidural steroid injection. Fentanyl patch increased per Dr. Cowart. Gaudencio hold PT today. COPD with acute bronchitis- Lung sounds are rhonchi on Azithromycin and breathing treatments. Mucinex added. Depression - continue zoloft. Reported that her mother on April 10 and she has been very depressed. HLD- continue statin 05/10/17 Abdominal pain- Resolved Back pain: Patient with pain radiating to back. Is spasmodic in nature. No fall reported. On muscle relaxer and IV morphine. Imaging with lumbar spinal stenosis. Neuro checks in a serial fashion. Nonoperative treatment with analgesics versus pain management. A surgical decompression will be offered as a last resort only per Neurosurgeon note. Discussed with Dr. Cowart interventional radiology consulted for epidural steroid injection. Fentanyl patch increased per Dr. Cowart. Plan for laminectomy today. Hyponatremia: NA 132 this AM. Will continue to monitor and recheck in AM COPD with acute bronchitis- Azithromycin and breathing treatments. Mucinex added. Chest Xray with no acute findings. Lung sounds improved Depression - continue zoloft. HLD- continue statin 05/11/17 S/P L4-L5 laminectomy: POD #1. Dressing intact. GULSHAN drain with 20 ml of serous drainage. Pain well controlled on Dilaudid POLITICAL SCIENTIST will continue muscle relaxer as need. Has started PT already. Will need to assess for discharge needs with progress with PT. Hyponatremia: Labs pending. Will monitor. COPD with acute bronchitis- Antibiotics, breathing treatments and on mucinex. Chest Xray with no acute findings. Depression - continue zoloft. In good spirits this morning HLD- continue statin Abdominal pain- Resolved GI prophylaxis and SCD Labs pending this am I and the ATTRACTIONS ASSOCIATE have both examined this patient and reviewed this note and I agree with these findings and plan of care. Hawa Reilly. [facility] May 11, 2017 06:34
[2017-05-11] MEDS ORDERED: BISACODYL 10 MG SUPP RECTAL PRN (06:45)
[2017-05-11] MEDS ORDERED: DOCUSATE SODIUM 50 MG/SENNA 8.6 MG TAB PO PRN (06:45)
[2017-05-11] MEDS ORDERED: SENNOSIDES 8.6 MG TAB PO PRN (06:45)
[2017-05-11] MEDS ORDERED: MAGNESIUM HYDROXIDE SUSP 30 ML CUP PO PRN (06:45)
[2017-05-11] MEDS: SODIUM CHLORIDE 0.9% FLUSH 5 ML FLUSH IVF SCH ×2 (09:00→21:00)
[2017-05-11] MEDS: PANTOPRAZOLE SODIUM 40 MG VIAL IVP SCH (09:00)
[2017-05-11] MEDS: cloNIDine HCL 0.1 MG TAB PO SCH ×2 (09:27→20:45)
[2017-05-11] MEDS: guaiFENesin E.R. 600 MG TAB PO SCH ×2 (09:27→20:45)
[2017-05-11] MEDS: SERTRALINE HCL 50 MG TAB PO SCH (09:28)
[2017-05-11] MEDS: CYCLOBENZAPRINE HCL 10 MG TAB PO PRN ×2 (09:32→20:45)
[2017-05-11] MEDS: HYDROmorphone HCL PCA 6 MG/30 ML IV SCH ×2 (09:46→18:42)
[2017-05-11 10:38] LABS: AUTOMATED NEUTROPHIL # 9.4 TH/MM3 (1.8-7.7); BASOPHIL % 0.1 % (0.0-2.0); HEMATOCRIT 33.8 % (35.0-46.0); HEMO FLAGS DIFF FINAL; LYMPH % 6.7 % (9.0-44.0); LYMPHOCYTE # 0.8 TH/MM3 (1.0-4.8); MEAN CELL VOLUME 90.9 FL (80.0-100.0); MEAN CORPUSCULAR HEMOGLOBIN 30.4 PG (27.0-34.0); MEAN CORPUSCULAR HGB CONC 33.5 % (32.0-36.0); MONO % 10.5 % (0.0-8.0); NEUT % 82.7 % (16.0-70.0); PLATELET COUNT 124 TH/MM3 (150-450); RED BLOOD COUNT 3.71 MIL/MM3 (4.00-5.30); RED CELL DISTRIBUTION WIDTH 13.9 % (11.6-17.2); WHITE BLOOD COUNT 11.3 TH/MM3 (4.0-11.0)
[2017-05-11 11:22] LABS: BICARBONATE 25.9 MEQ/L (21.0-32.0); POTASSIUM 3.9 MEQ/L (3.5-5.1)
--- NOTE | 2017-05-11 12:20 | EKG ---
Date Performed: 05/09/2017 Time Performed: 23:42:05 PTAGE: 66 years EKG: Sinus rhythm WITH SHORT CA INTERVAL INCOMPLETE RIGHT BUNDLE BRANCH BLOCK BORDERLINE ECG PREVIOUS TRACING : 05/07/[address].24 [address]-T abnormalities slightly improved since the prior francois dahl DOCTOR: Elvis Dale Interpretating Date/Time 05/11/2017 12:20:26
--- NOTE | 2017-05-11 12:42 | HHI.NSPN ---
Note Status Status: Progress Note Interval History Diagnosis Lumbar spondylosis and radiculopathy Interval History This is a 66 year old female with history of COPD, depression, and hyperlipidemia, who presented to [facility] with intractable back pain, hip/leg pain, and abdominal pain. Her pain was very severe, woke her up in the morning. She has chrnic intractable pain, but she denies anything as severe as this in the past. She denies any history of abdominal surgeries. Her pain was so severe that she had nausea and vomiting. Patient states she's tried taking her Tylenol with Codeine for this along with aspirin with no improvement in her symptoms. She denies any fevers, recent illness or falls. Denies any chest pain or shortness of breath. Denies any loss or change in bladder. She has severe back pain with muscle spasms. The pain radiated to bothy lower extremities, but it is much worse on the right than the left. CT of the abdomen was negative. A hr assistant was consulted and they found no intra-abdominal conditions, and the diagnosis as having referred pain from her back. Tried conservative treatment in the past with analgesics anti-inflammatories and extensive physical therapy. She has also undergone multiple epidural steroid injections with only mild temporary relief an MRI of the lumbar spine show significant loss of the space height at L4 5 with disc protrusion and neural impingement. Neurosurgical consultation was requested 8.30. She remains in severe pain, entered in her L4-5 region with bilateral radiculopathy. She has been cleared by GI. She has flexion extension xrays ordered 05/11. POD #1. Radicular pain resolved. Reports incisional pain. No focal neurological deficits Labs, Micro, & Vital Signs Results Date Time Temp Pulse Resp B/P (MAP) Pulse Ox O2 Delivery O2 Flow Rate FiO2 05/11/17 09:46 17 05/11/17 08:00 98.1 64 20 112/97 (102) 95 05/11/17 06:00 18 05/11/17 04:00 97.7 63 20 137/64 (88) 95 05/11/17 00:00 97.8 68 20 105/59 (74) 90 05/10/17 23:43 63 05/10/17 21:40 Nasal Cannula 2.00 05/10/17 20:00 97.6 69 20 124/64 (84) 98 05/10/17 18:31 Nasal Cannula 2.00 05/10/17 17:33 98.0 64 18 120/63 (82) 97 05/10/17 17:01 16 05/10/17 17:00 66 18 109/62 (78) 97 Nasal Cannula 2 05/10/17 16:00 97.8 63 18 98/57 (71) 96 Nasal Cannula 2 05/10/17 15:00 69 18 107/59 (75) 95 Nasal Cannula 2 05/10/17 14:00 63 18 109/58 (75) 96 Nasal Cannula 2 05/10/17 13:15 66 18 97/60 (72) 95 Nasal Cannula 2 05/10/17 13:12 16 05/10/17 13:00 68 18 94/56 (69) 96 Nasal Cannula 2 05/10/17 12:45 74 18 111/62 (78) 94 Nasal Cannula 2 05/10/17 12:42 16 Constitutional Vital Signs Date Time Temp Pulse Resp B/P (MAP) Pulse Ox O2 Delivery O2 Flow Rate FiO2 05/11/17 09:46 17 05/11/17 08:00 98.1 64 20 112/97 (102) 95 05/11/17 06:00 18 05/11/17 04:00 97.7 63 20 137/64 (88) 95 05/11/17 00:00 97.8 68 20 105/59 (74) 90 05/10/17 23:43 63 05/10/17 21:40 Nasal Cannula 2.00 05/10/17 20:00 97.6 69 20 124/64 (84) 98 05/10/17 18:31 Nasal Cannula 2.00 05/10/17 17:33 98.0 64 18 120/63 (82) 97 05/10/17 17:01 16 05/10/17 17:00 66 18 109/62 (78) 97 Nasal Cannula 2 05/10/17 16:00 97.8 63 18 98/57 (71) 96 Nasal Cannula 2 05/10/17 15:00 69 18 107/59 (75) 95 Nasal Cannula 2 05/10/17 14:00 63 18 109/58 (75) 96 Nasal Cannula 2 05/10/17 13:15 66 18 97/60 (72) 95 Nasal Cannula 2 05/10/17 13:12 16 05/10/17 13:00 68 18 94/56 (69) 96 Nasal Cannula 2 05/10/17 12:45 74 18 111/62 (78) 94 Nasal Cannula 2 05/10/17 12:42 16 Physical Exam She moves all 4 extremities without focal deficits Sensory exam intaxt DTR's symmetrical Incision dry, intact Medications Current Medications Current Medications Morphine Sulfate (Morphine Inj) 2 mg ONCE ONCE IV PUSH Last administered on 19:52; Start 05/07/17 at 19:45; Stop 05/07/17 at 19:46; Status DC Ondansetron HCl (Zofran Inj) 4 mg ONCE ONCE IVP Last administered on 19:50; Start 05/07/17 at 19:45; Stop 05/07/17 at 19:46; Status DC Sodium Chloride (NS Flush) 2 ml UNSCH PRN IV FLUSH FLUSH AFTER USING IV ACCESS ; Start 05/07/17 at 19:45; Stop 05/10/17 at 12:14; Status DC Albuterol/ Ipratropium (Duoneb Neb) 1 ampule ONCE ONCE INH Last administered on 05/07/17 20:09; Start 05/07/17 at 19:45; Stop 05/07/17 at 19:46; Status DC Morphine Sulfate (Morphine Inj) 4 mg ONCE ONCE IV PUSH Last administered on 20:53; Start 05/07/17 at 20:45; Stop 05/07/17 at 20:46; Status DC Iohexol (Omnipaque 350 Inj) 95 ml STK-MED ONCE IVCONTRAST Last administered on 05/07/17 18:33; Start 05/07/17 at 18:33; Stop 05/07/17 at 21:31; Status DC Morphine Sulfate (Morphine Inj) 4 mg ONCE ONCE IV PUSH Last administered on 22:57; Start 05/07/17 at 23:00; Stop 05/07/17 at 23:01; Status DC Ondansetron HCl (Zofran Inj) 4 mg Q6H PRN IV NAUSEA OR VOMITING; Start at 23:45 Acetaminophen (Tylenol) 650 mg Q4H PRN PO Temp>101F, Headache Last administered on 05/08/17 17:56; Start 05/07/17 at 23:45 Acetaminophen (Tylenol Supp) 650 mg Q4H PRN RECTAL Temp>101F, Headache; Start 05/07/17 at 23:45 Morphine Sulfate (Morphine Inj) 2 mg Q2H PRN IV PUSH ABDOMINAL PAIN Last administered on 05/10/17 05:38; Start 05/07/17 at 23:45; Stop 05/10/17 at 12:22 ; Status DC Pantoprazole Sodium (Protonix Inj) 40 mg DAILY IVP Last administered on 09:13; Start 05/08/17 at 09:00; Stop 05/09/17 at 10:15; Status DC Sodium Chloride 1,000 ml @ 125 mls/hr Q8H IV ; Start 05/07/17 at 23:41; Stop at 06:57; Status DC Albuterol/ Ipratropium (Duoneb Neb) 1 ampule Q4HR NEB PRN NEB SHORTNESS OF BREATH; Start 05/08/17 at 00:15; Stop 05/08/17 at 07:01; Status DC Sertraline HCl (Zoloft) 25 mg DAILY PO Last administered on 05/11/17 09:28; Start 05/08/17 at 09:00 Pravastatin Sodium (Pravachol) 10 mg HS PO Last administered on 05/09/17 21:21 ; Start 05/08/17 at 21:00 Miscellaneous (Pill Splitter) 1 ea UNSCH PRN OTHER SEE LABEL COMMENTS; Start at 00:15 Cyclobenzaprine HCl (Flexeril) 10 mg Q8H PRN PO MUSCLE SPASM Last administered on 05/11/17 09:32; Start 05/08/17 at 06:30 Albuterol/ Ipratropium (Duoneb Neb) 1 ampule Q6HR NEB PRN NEB SHORTNESS OF BREATH; Start 05/08/17 at 06:30 Azithromycin (Zithromax) 250 mg Taper DAILY PO Last administered on 05/09/17 09:14; Start 05/08/17 at 08:00; Stop 05/11/17 at 06:25; Status DC Nicotine (Habitrol 21 Mg Patch.24 Hr) 1 patch DAILY TD ; Start 05/08/17 at 09:00 ; Stop 05/11/17 at 06:25; Status DC Enoxaparin Sodium (Lovenox Inj) 40 mg Q24H SQ Last administered on 05/09/17 09 :16; Start 05/08/17 at 08:00; Stop 05/09/17 at 21:24; Status DC Miscellaneous Information 1 HS T-DERMAL ; Start 05/08/17 at 21:00; Stop 05/11/17 at 06:25; Status DC Clonidine (Catapres) 0.1 mg Q12HR PO Last administered on 05/11/17 09:27; Start 05/08/17 at 13:00 Potassium Chloride (KCl) 20 meq Q12HR PO Last administered on 05/09/17 21:21; Start 05/08/17 at 13:00; Stop 05/11/17 at 06:25; Status DC Fentanyl (Duragesic 25 Mcg Patch.72 Hr) 1 patch Q3D T-DERMAL Last administered on 05/08/17 14:26; Start 05/08/17 at 14:00; Stop 05/09/17 at 15:32 ; Status DC Miscellaneous Information 1 Q3D T-DERMAL ; Start 05/11/17 at 14:00; Stop 05/11/17 at 14:00; Status DC Guaifenesin (Mucinex Er) 600 mg BID PO Last administered on 05/11/17 09:27; Start 05/09/17 at 21:00 Pantoprazole Sodium (Protonix) 40 mg DAILY PO ; Start 05/10/17 at 09:00; Stop at 12:15; Status DC Sodium Chloride 1,000 ml @ 100 mls/hr Q10H IV Last administered on 05/09/17 23:45; Start 05/09/17 at 13:04; Stop 05/10/17 at 12:24; Status DC Cefazolin Sodium/ Dextrose 50 ml @ 150 mls/hr ONCE ONCE IV Last administered on 05/09/17 17:34; Start 05/09/17 at 13:15; Stop 05/09/17 at 17:56; Status DC Vancomycin HCl 1000 mg/Sodium Chloride 250 ml @ 250 mls/hr ONCE ONCE IV ; Start 05/09/17 at 13:15; Stop 05/09/17 at 17:56; Status DC Chlorhexidine Gluconate (Hibiclens 4% Top Soln) 1 applic HS TOP ; Start at 21:00; Stop 05/10/17 at 21:01; Status DC Fentanyl (Duragesic 50 Mcg Patch.72 Hr) 1 patch Q3D T-DERMAL Last administered on 05/09/17 17:45; Start 05/09/17 at 17:00; Stop 05/11/17 at 06:25 ; Status DC Miscellaneous Information 1 Q3D T-DERMAL Last administered on 05/09/17 17:00; Start 05/09/17 at 17:00; Stop 05/11/17 at 06:25; Status DC Sodium Chloride 1,000 ml @ 100 mls/hr Q10H IV ; Start 05/09/17 at 17:52; Stop 05/10/17 at 12:24; Status DC Cefazolin Sodium/ Dextrose 50 ml @ 150 mls/hr [employer] PROFESSOR IV Last administered on 05/10/17 11:03; Start 05/09/17 at 18:00 Vancomycin HCl 1000 mg/Sodium Chloride 250 ml @ 250 mls/hr [employer]IT[employer] THEORY PROFESSOR IV Last administered on 05/10/17 11:04; Start 05/09/17 at 18:00 Chlorhexidine Gluconate (Hibiclens 4% Top Soln) 1 applic HS TOP ; Start at 21:00; Stop 05/10/17 at 21:01; Status DC Vancomycin HCl 1000 mg/Sodium Chloride 250 ml @ 250 mls/hr POLITICAL THEORY PROFESSOR IV ; Start 05/09/17 at 18:00; Status Cancel Dextrose/Sodium Chloride 1,000 ml @ 42 mls/hr [id number] IV Last administered on 05/09/17 23:45; Start 05/09/17 at 21:30; Stop 05/11/17 at 06:25; Status DC Thrombin (Thrombin Top Soln) 10,000 units STK-MED ONCE .ROUTE Last administered on 05/10/17 09:40; Start 05/10/17 at 07:02; Stop 05/10/17 at 07:03 ; Status DC Gelatin (Gelfoam 100 Top) 1 foam STK-MED ONCE .ROUTE Last administered on 09:40; Start 05/10/17 at 07:03; Stop 05/10/17 at 07:04; Status DC Gentamicin Sulfate (Gentamicin Inj) 240 mg STK-MED ONCE .ROUTE Last administered on 05/10/17 09:40; Start 05/10/17 at 07:03; Stop 05/10/17 at 07:04 ; Status DC Acetaminophen 100 ml @ As Directed STK-MED ONCE IV ; Start 05/10/17 at 07:44; Stop 05/10/17 at 07:45; Status DC Artificial Tears (Lacrilube Opht Oint) 3.5 applic STK-MED ONCE .ROUTE ; Start at 07:44; Stop 05/10/17 at 07:45; Status DC Midazolam HCl (Versed Inj) 2 mg STK-MED ONCE .ROUTE ; Start 05/10/17 at 07:44; Stop 05/10/17 at 07:45; Status DC Fentanyl Citrate (fentaNYL INJ) 100 mcg STK-MED ONCE .ROUTE ; Start 05/10/17 at 07:44; Stop 05/10/17 at 07:45; Status DC Fentanyl Citrate (fentaNYL INJ) 400 mcg STK-MED ONCE .ROUTE ; Start 05/10/17 at 07:45; Stop 05/10/17 at 07:46; Status DC Famotidine (Pepcid Inj) 20 mg STK-MED ONCE .ROUTE ; Start 05/10/17 at 07:45; Stop 05/10/17 at 07:46; Status DC Sodium Chloride 100 ml @ As Directed STK-MED ONCE .ROUTE Last administered on 05/10/17 09:40; Start 05/10/17 at 08:01; Stop 05/10/17 at 08:02; Status DC Fentanyl Citrate (fentaNYL INJ) 200 mcg STK-MED ONCE .ROUTE ; Start 05/10/17 at 09:45; Stop 05/10/17 at 09:46; Status DC Bupivacaine HCl (Marcaine Pf 0.5% Inj) 30 ml STK-MED ONCE .ROUTE Last administered on 05/10/17 11:26; Start 05/10/17 at 11:26; Stop 05/10/17 at 11:27 ; Status DC Potassium Chloride/Sodium Chloride 1,000 ml @ 42 mls/hr [id number] IV Last administered on 05/11/17 04:49; Start 05/10/17 at 13:00 IV Flush (NS Flush) 2 ml UNSCH PRN IVF FLUSH AFTER USING IV ACCESS; Start 05/10 at 11:45 IV Flush (NS Flush) 2 ml BID IVF Last administered on 05/10/17 22:00; Start at 21:00 Cefazolin Sodium/ Dextrose 50 ml @ 100 mls/hr Q8H IV Last administered on 11:24; Start 05/10/17 at 20:00; Stop 05/11/17 at 12:29; Status DC Pantoprazole Sodium (Protonix Inj) 40 mg DAILY IVP ; Start 05/11/17 at 09:00 Morphine Sulfate (Morphine Inj) 2 mg Q2H PRN IV PUSH PAIN SCALE 1 TO 6; Start 05/10/17 at 13:00 Morphine Sulfate (Morphine Inj) 4 mg Q2H PRN IV PUSH PAIN SCALE 7 TO 10; Start 05/10/17 at 13:00 Acetaminophen (Tylenol) 650 mg Q4H PRN PO TEMPERATURE > 101.5 F; Start at 13:00 Naloxone HCl (Narcan Inj) 0.4 mg UNSCH PRN IV RESPIRATORY RATE LESS THAN 10; Start 05/10/17 at 11:45 Diphenhydramine HCl (Benadryl Inj) 25 mg Q6H PRN IV ITCHING; Start 05/10/17 at 13:00 Hydromorphone HCl (Dilaudid [employer]ING WORKER Inj) 6 mg UNSCH IV Last administered on 09:46; Start 05/10/17 at 11:45 [employer]ER Dosage Infused (Pha) 1 Q8HR .XX Last administered on 05/11/17 06:00; Start 05/10/17 at 14:00 Miscellaneous Information ALL NURSING DEPARTME... UNSCH PRN .XX SEE LABEL COMMENTS; Start 05/10/17 at 12:15; Stop 05/11/17 at 12:14; Status DC Magnesium Hydroxide (Milk Of Magnesia Liq) 30 ml Q12H PRN PO MILD - MODERATE CONSTIPATION; Start 05/11/17 at 06:45 Sennosides (Senokot) 17.2 mg Q12H PRN PO MODERATE - SEVERE CONSTIPATION; Start 05/11/17 at 06:45 Bisacodyl (Dulcolax Supp) 10 mg DAILY PRN RECTAL SEVERE CONSITIPATION; Start at 06:45 Lactulose (Lactulose Liq) 30 ml DAILY PRN PO SEVERE CONSITIPATION; Start at 06:45 Senna/Docusate Sodium (Pauly-Colace) 2 tab DAILY PRN PO constipation; Start 05/11 at 06:45 Medical Decision Making MDM Remarks Last 48 hours Impressions Lumbar Spine MRI 05/08/17 0000 Signed Impressions: Service Date/Time: Monday, May 08, 2017 13:59 - CONCLUSION: 1. Scattered degenerative changes. Most pronounced at L4-L5 with abutment of the right L4 nerve root within the neural foramen and potential source for right L4 radiculopathy. Each level detailed in the above discussion. Luigi Nolen Jr., MD Chest X-Ray 05/07/171935 Signed Impressions: Service Date/Time: Sunday, May 07, 2017 19:32 - CONCLUSION: Normal examination. Claus Hill MD Abdomen/Pelvis CT 05/07/171935 Signed Impressions: Service Date/Time: Sunday, May 07, 2017 21:28 - CONCLUSION: 1. No acute abnormality seen. 2. Possible small hiatal hernia. MD Gil Pinto VTE Risk Assessment Caprini VTE Risk Assessment: Mod/High Risk (score >= 2) Caprini Risk Assessment Model Point Value = 1 Point Value = 2 Point Value = 3 Point Value = 5 Age 41-60 Minor surgery BMI > 25 kg/m2 Swollen legs Varicose veins or History of unexplained or recurrent spontaneous Oral contraceptives or hormone replacement Sepsis (< 1 month) Serious lung disease, including pneumonia (< 1 month) Abnormal pulmonary function Acute myocardial infarction Congestive heart failure (< 1 month) History of inflammatory bowel disease Medical patient at bed rest Age 61-74 Arthroscopic surgery Major open surgery (> 45 min) Laparoscopic surgery (> 45 min) Malignancy Confined to bed (> 72 hours) Immobilizing plaster cast Central venous access Age >= 75 History of VTE Family history of VTE Factor V Leiden Prothrombin [id number] Lupus anticoagulant Anticardiolipin antibodies Elevated serum homocysteine Heparin-induced thrombocytopenia Other congenital or acquired thrombophilia Stroke (< 1 month) Elective arthroplasty Hip, pelvis, or leg fracture Acute spinal cord injury (< 1 month) Prophylaxis Regimen Total Risk Factor Score Risk Level Prophylaxis Regimen 0-1 Low Early ambulation 2 Moderate Order ONE of the following: *Sequential Compression Device (SCD) *Heparin 5000 units SQ BID 3-4 Higher Order ONE of the following medications: *Heparin 5000 units SQ TID *Enoxaparin/Lovenox 40 mg SQ daily (WT < 150 kg, CrCl > 30 mL/min) *Enoxaparin/Lovenox 30 mg SQ daily (WT < 150 kg, CrCl > 10-29 mL/min) *Enoxaparin/Lovenox 30 mg SQ BID (WT < 150 kg, CrCl > 30 mL/min) AND/OR *Sequential Compression Device (SCD) 5 or more Highest Order ONE of the following medications: *Heparin 5000 units SQ TID (Preferred with Epidurals) *Enoxaparin/Lovenox 40 mg SQ daily (WT < 150 kg, CrCl > 30 mL/min) *Enoxaparin/Lovenox 30 mg SQ daily (WT < 150 kg, CrCl > 10-29 mL/min) *Enoxaparin/Lovenox 30 mg SQ BID (WT < 150 kg, CrCl > 30 mL/min) AND *Sequential Compression Device (SCD) Attending Statement POD #1 Neurologically stable. Pain improved. Continue [employer] WORKER pump FC [place] Daily PT CDS's and Lovenox Real Arnold MD May 11, 2017 12:42
[2017-05-11] MEDS: ENOXAPARIN SODIUM 40 MG/0.4 ML SYRINGE SQ SCH (13:58)
[2017-05-11] MEDS ORDERED: REMOVE OLD DURAGESIC (FENTANYL) PATCH T-DERMAL SCH (14:00)
[2017-05-11] MEDS: PRAVASTATIN SOD 10 MG TAB PO SCH (20:44)
[2017-05-12] VITALS (11 sets, daily range): BP systolic 104–169; BP diastolic 55–76; PULSE 68–86; RESP 16–20; TEMP 97.9–99.3; O2SAT 2–99
[2017-05-12] MEDS: NS + KCL 20 MEQ INJ 1,000 ML IV SCH (01:14)
[2017-05-12] MEDS: CYCLOBENZAPRINE HCL 10 MG TAB PO PRN ×3 (04:36→20:22)
[2017-05-12] MEDS: MORPHINE SULFATE 4 MG/ML INJ IV PUSH PRN ×2 (06:59→20:27)
[2017-05-12] MEDS: HYDROmorphone HCL PCA 6 MG/30 ML IV SCH ×3 (08:47→20:15)
[2017-05-12] MEDS: SODIUM CHLORIDE 0.9% FLUSH 5 ML FLUSH IVF SCH ×2 (09:00→20:27)
[2017-05-12] MEDS: SERTRALINE HCL 50 MG TAB PO SCH (09:39)
[2017-05-12] MEDS: PANTOPRAZOLE SODIUM 40 MG VIAL IVP SCH (09:39)
[2017-05-12] MEDS: guaiFENesin E.R. 600 MG TAB PO SCH ×2 (09:40→20:19)
[2017-05-12] MEDS: cloNIDine HCL 0.1 MG TAB PO SCH ×2 (09:40→20:19)
--- NOTE | 2017-05-12 12:00 | HHI.PR ---
Subjective Remarks resting with intermittant pain post op day 2 Objective Vital Signs Date Time Temp Pulse Resp B/P (MAP) Pulse Ox O2 Delivery O2 Flow Rate FiO2 05/12/17 09:45 2 Nasal Cannula 2.00 05/12/17 09:40 18 05/12/17 08:47 18 05/12/17 08:04 69 05/12/17 08:00 99.0 70 18 162/72 (102) 97 05/12/17 04:00 97.9 75 20 169/76 (107) 98 05/12/17 00:00 98.6 68 20 118/56 (76) 95 05/11/17 21:00 64 05/11/17 20:00 98.9 66 20 110/52 (71) 96 05/11/17 18:42 19 05/11/17 18:03 Nasal Cannula 2.00 05/11/17 16:00 98.5 59 18 135/61 (85) 96 05/11/17 13:59 18 05/11/17 12:00 98.0 66 18 129/66 (87) 97 I/O 05/11/17 05/11/17 05/11/17 05/12/17 05/12/17 05/12/17 07:00 15:00 23:00 07:00 15:00 23:00 Output Total 300 ml 30 ml 20 ml Balance -300 ml -30 ml -20 ml Output Urine Total 275 ml Drainage Total 25 ml 30 ml 20 ml # Voids 5 1 # Bowel Movements 0 Result Diagram: 05/11/1718 05/11/1718 Imaging Last 72 hours Impressions Lumbar Spine X-Ray 05/10/17 0000 Signed Impressions: Service Date/Time: April 09:38 - CONCLUSION: 1. Status post fusion at the L4-5 level. 2. Mild grade 1 anterior spondylolisthesis of L3 on L4. Braden Paniagua MD Procedures S/P L4-L5 laminectomy on 05/10/17 Objective Remarks GENERAL: frail female with anxiety and back pain SKIN: Warm and dry. HEAD: Normocephalic. EYES: No scleral icterus. No injection or drainage. NECK: Supple, trachea midline. No JVD or lymphadenopathy. CARDIOVASCULAR: Regular rate and rhythm without murmurs, gallops, or rubs. RESPIRATORY: Breath sounds equal bilaterally. No accessory muscle use. GASTROINTESTINAL: Abdomen soft, non-tender, nondistended. EXTREMITIES: No cyanosis, or edema. NEUROLOGICAL: Awake, alert, and oriented x 3. Non-focal. healing lumbar incision present Assessment and Plan Problem List: (1) Status post lumbar laminectomy ICD Codes: Z98.890 - Other specified postprocedural states Assessment and Plan sp l4-5 laminectomy pod 2 Discussed Condition With patient Discharge Planning may need rehab Garland Cowart DO May 12, 2017 12:00
[2017-05-12] MEDS: ENOXAPARIN SODIUM 40 MG/0.4 ML SYRINGE SQ SCH (14:00)
[2017-05-12] MEDS: PCA - TOTAL MG DILAUDID DELIVERED PER SHIFT SCH ×2 (14:00→22:00)
--- NOTE | 2017-05-12 19:55 | HHI.NSPN ---
History Chief Complaint: low back pain Interval History 66-year-old female status post L4-5 T left on 05/10/17. Review of Systems Respiratory: Negative for: shortness of breath Cardiovascular: Negative for: chest pain Gastrointestinal: Negative for: nausea, vomitting Exam Results Vital Signs Date Time Temp Pulse Resp B/P (MAP) Pulse Ox O2 Delivery O2 Flow Rate FiO2 05/12/17 16:06 16 05/12/17 16:00 99.2 72 139/62 (87) 97 05/12/17 09:45 Nasal Cannula 2.00 05/10/17 01:13 21 Intake and Output 05/12/17 05/12/17 05/13/17 08:00 16:00 00:00 Intake Total 6 ml 1662 ml Output Total 20 ml 270 ml Balance -20 ml 6 ml 1392 ml Physical Examination Cardiac exam regular without murmur Respirations to auscultation positive mild rhonchi. Abdomen soft nontender Awake and alert Dressing dry Mild mostly serosanguineous drainage out the drain bulb. Sensation intact by touch throughout the lower extremities Strength normal major flexion and extension groups in the lower extremities No significant extremity edema or cyanosis Lab, Micro, Other Results Last Impressions Lumbar Spine X-Ray 05/10/17 0000 Signed Impressions: Service Date/Time: April 09:38 - CONCLUSION: 1. Status post fusion at the L4-5 level. 2. Mild grade 1 anterior spondylolisthesis of L3 on L4. Braden Paniagua MD Chest X-Ray 05/09/17 0000 Signed Impressions: Service Date/Time: Tuesday, May 09, 2017 21:51 - CONCLUSION: No acute disease. Claus Hill MD Lumbar Spine MRI 05/08/17 0000 Signed Impressions: Service Date/Time: Monday, May 08, 2017 13:59 - CONCLUSION: 1. Scattered degenerative changes. Most pronounced at L4-L5 with abutment of the right L4 nerve root within the neural foramen and potential source for right L4 radiculopathy. Each level detailed in the above discussion. Luigi Nolen Jr., MD Abdomen/Pelvis CT 05/07/171935 Signed Impressions: Service Date/Time: Sunday, May 07, 2017 21:28 - CONCLUSION: 1. No acute abnormality seen. 2. Possible small hiatal hernia. Claus Hill MD Medical Decision Making Impression and Plan Impression: 1. Stable neurologic exam postoperatively. Postoperative low back pain presently controlled with HORSE [employer]. Plan: Continue physical therapy Patient not mobilizing well out of bed yet. Declines nicotine patch Follow-up labs, platelet count Discontinue drain Continuing laxatives-no bowel movement postoperative Sinan Campbell MD May 12, 2017 19:55
[2017-05-12] MEDS: PRAVASTATIN SOD 10 MG TAB PO SCH (20:19)
[2017-05-13] VITALS (13 sets, daily range): BP systolic 115–150; BP diastolic 56–71; PULSE 62–82; RESP 16–20; TEMP 97.9–100.5; O2SAT 94–99
[2017-05-13] MEDS: NS + KCL 20 MEQ INJ 1,000 ML IV SCH (01:11)
[2017-05-13] MEDS: HYDROmorphone HCL PCA 6 MG/30 ML IV SCH ×4 (02:24→16:35)
[2017-05-13] MEDS: PCA - TOTAL MG DILAUDID DELIVERED PER SHIFT SCH ×2 (07:20→14:00)
[2017-05-13] MEDS: guaiFENesin E.R. 600 MG TAB PO SCH ×2 (08:12→20:18)
[2017-05-13] MEDS: SERTRALINE HCL 50 MG TAB PO SCH (08:12)
[2017-05-13] MEDS: CYCLOBENZAPRINE HCL 10 MG TAB PO PRN ×3 (08:12→23:49)
[2017-05-13] MEDS: cloNIDine HCL 0.1 MG TAB PO SCH ×2 (08:12→20:19)
[2017-05-13] MEDS: SODIUM CHLORIDE 0.9% FLUSH 5 ML FLUSH IVF SCH ×2 (08:13→21:00)
[2017-05-13] MEDS: PANTOPRAZOLE SODIUM 40 MG VIAL IVP SCH (08:13)
[2017-05-13 08:19] LABS: AUTOMATED NEUTROPHIL # 5.6 TH/MM3 (1.8-7.7); BASOPHIL % 0.3 % (0.0-2.0); EOSINOPHIL # 0.1 TH/MM3 (0-0.4); EOSINOPHIL % 0.8 % (0.0-4.0); HEMATOCRIT 31.2 % (35.0-46.0); HEMO FLAGS DIFF FINAL; LYMPH % 12.7 % (9.0-44.0); LYMPHOCYTE # 0.9 TH/MM3 (1.0-4.8); MEAN CELL VOLUME 91.5 FL (80.0-100.0); MEAN CORPUSCULAR HEMOGLOBIN 30.1 PG (27.0-34.0); MEAN CORPUSCULAR HGB CONC 32.9 % (32.0-36.0); MONO % 7.2 % (0.0-8.0); PLATELET COUNT 171 TH/MM3 (150-450); RED BLOOD COUNT 3.41 MIL/MM3 (4.00-5.30)
[2017-05-13 08:44] LABS: BICARBONATE 29.8 MEQ/L (21.0-32.0)
[2017-05-13] MEDS: MORPHINE SULFATE 4 MG/ML INJ IV PUSH PRN ×2 (11:38→23:49)
--- NOTE | 2017-05-13 12:31 | HHI.NSPN ---
History Chief Complaint: low back pain Interval History 66-year-old female status post L4-5 T left on 05/10/17. Exam Results Vital Signs Date Time Temp Pulse Resp B/P (MAP) Pulse Ox O2 Delivery O2 Flow Rate FiO2 05/13/17 12:07 16 05/13/17 09:03 96 Nasal Cannula 2.00 05/13/17 08:00 98.2 71 128/58 (81) 05/10/17 01:13 21 Intake and Output 05/13/17 05/13/17 05/14/17 08:00 16:00 00:00 Intake Total 360 ml Output Total 10 ml Balance 350 ml Physical Examination Cardiac exam regular without murmur Respirations to auscultation positive mild rhonchi. Abdomen soft nontender Awake and alert She appears very painful again today. She resists turning or sitting up. Dressing is dry. Minimal drain output Sensation intact by touch throughout the lower extremities Strength normal major flexion and extension groups in the lower extremities No significant extremity edema or cyanosis Lab, Micro, Other Results Laboratory Tests Test 05/13/17 07:12 White Blood Count 7.0 TH/MM3 Red Blood Count 3.41 MIL/MM3 Hemoglobin 10.3 GM/DL Hematocrit 31.2 % Mean Corpuscular Volume 91.5 FL Mean Corpuscular Hemoglobin 30.1 PG Mean Corpuscular Hemoglobin Concent 32.9 % Red Cell Distribution Width 14.0 % Platelet Count 171 TH/MM3 Mean Platelet Volume 8.8 FL Neutrophils (%) (Auto) 79.0 % Lymphocytes (%) (Auto) 12.7 % Monocytes (%) (Auto) 7.2 % Eosinophils (%) (Auto) 0.8 % Basophils (%) (Auto) 0.3 % Neutrophils # (Auto) 5.6 TH/MM3 Lymphocytes # (Auto) 0.9 TH/MM3 Monocytes # (Auto) 0.5 TH/MM3 Eosinophils # (Auto) 0.1 TH/MM3 Basophils # (Auto) 0.0 TH/MM3 CBC Comment DIFF FINAL Differential Comment Blood Urea Nitrogen 7 MG/DL Creatinine 0.50 MG/DL Random Glucose 106 MG/DL Calcium Level 8.2 MG/DL Sodium Level 138 MEQ/L Potassium Level 3.0 MEQ/L Chloride Level 98 MEQ/L Carbon Dioxide Level 29.8 MEQ/L Anion Gap 10 MEQ/L Estimat Glomerular Filtration Rate 124 ML/MIN Medical Decision Making Impression and Plan Impression: 1. Stable neurologic exam postoperatively. Postoperative low back pain presently controlled with RN FORENSIC. 2. Hypokalemia 3. Postoperative constipation Plan: Continue physical therapy Patient not mobilizing well out of bed yet. Declines nicotine patch Follow-up labs 05/13/17 satisfactory except for decreased potassium Discontinue drain Continuing laxatives-no bowel movement postoperative period remains on Pauly- Colace, Senokot, Dulcolax. Constipation likely to remain a problem as long as she is on increased narcotics and not mobilizing well. On Lovenox for DVT prophylaxis. Sliding scale insulin Sinan Campbell MD May 13, 2017 12:31
--- NOTE | 2017-05-13 13:32 | HHI.PR ---
Subjective Remarks resting with intermittant pain but overall more comfortable today post op day 3 Objective Vital Signs Date Time Temp Pulse Resp B/P (MAP) Pulse Ox O2 Delivery O2 Flow Rate FiO2 05/13/17 12:41 97.9 67 17 146/68 (94) 96 05/13/17 12:37 20 05/13/17 12:07 16 05/13/17 11:48 16 05/13/17 09:03 96 Nasal Cannula 2.00 05/13/17 08:00 98.2 71 18 128/58 (81) 96 05/13/17 07:20 16 05/13/17 07:16 67 05/13/17 06:57 16 05/13/17 06:00 16 05/13/17 04:00 98.6 77 20 120/56 (77) 98 05/13/17 02:24 16 05/13/17 00:00 98.6 72 20 115/70 (85) 94 05/12/17 23:06 72 05/12/17 22:56 16 05/12/17 22:00 16 05/12/17 20:00 99.3 72 18 162/72 (102) 99 05/12/17 16:00 99.2 72 17 139/62 (87) 97 05/12/17 15:36 16 05/12/17 14:00 16 05/12/17 14:00 16 I/O 05/12/17 05/12/17 05/12/17 05/13/17 05/13/17 05/13/17 07:00 15:00 23:00 07:00 15:00 23:00 Intake Total 6 ml 1902 ml 360 ml Output Total 20 ml 270 ml 10 ml Balance -20 ml 6 ml 1632 ml 350 ml Intake Oral 1440 ml 360 ml IV Total 6 ml 462 ml Output Urine Total 250 ml Drainage Total 20 ml 20 ml 10 ml # Voids 2 2 # Bowel Movements 0 Result Diagram: 05/13/1771105/13/17711 Procedures S/P L4-L5 laminectomy on 05/10/17 Objective Remarks GENERAL: frail female with anxiety and back pain SKIN: Warm and dry. HEAD: Normocephalic. EYES: No scleral icterus. No injection or drainage. NECK: Supple, trachea midline. No JVD or lymphadenopathy. CARDIOVASCULAR: Regular rate and rhythm without murmurs, gallops, or rubs. RESPIRATORY: Breath sounds equal bilaterally. No accessory muscle use. GASTROINTESTINAL: Abdomen soft, non-tender, nondistended. EXTREMITIES: No cyanosis, or edema. NEUROLOGICAL: Awake, alert, and oriented x 3. Non-focal. healing lumbar incision present Assessment and Plan Problem List: (1) Status post lumbar laminectomy ICD Codes: Z98.890 - Other specified postprocedural states Assessment and Plan sp l4-5 laminectomy pod 3 pain improved Discharge Planning will need rehab will discus with patient in am Garland Cowart DO May 13, 2017 13:32
[2017-05-13] MEDS: ENOXAPARIN SODIUM 40 MG/0.4 ML SYRINGE SQ SCH (13:35)
[2017-05-13] MEDS: PRAVASTATIN SOD 10 MG TAB PO SCH (20:19)
[2017-05-13] MEDS: POTASSIUM CHLORIDE 10 MEQ CAP PO SCH (20:25)
[2017-05-14] VITALS (10 sets, daily range): BP systolic 116–142; BP diastolic 57–65; PULSE 70–84; RESP 16–20; TEMP 98.3–100.1; O2SAT 95–99
[2017-05-14] MEDS: PCA - TOTAL MG DILAUDID DELIVERED PER SHIFT SCH ×2 (07:17→14:00)
[2017-05-14] MEDS: SODIUM CHLORIDE 0.9% FLUSH 5 ML FLUSH IVF SCH ×2 (09:00→21:00)
[2017-05-14] MEDS: cloNIDine HCL 0.1 MG TAB PO SCH ×2 (09:50→20:37)
[2017-05-14] MEDS: CYCLOBENZAPRINE HCL 10 MG TAB PO PRN (09:50)
[2017-05-14] MEDS: POTASSIUM CHLORIDE 10 MEQ CAP PO SCH ×2 (09:50→20:37)
[2017-05-14] MEDS: guaiFENesin E.R. 600 MG TAB PO SCH ×2 (09:50→20:37)
[2017-05-14] MEDS: PANTOPRAZOLE SODIUM 40 MG VIAL IVP SCH (09:51)
[2017-05-14] MEDS: SERTRALINE HCL 50 MG TAB PO SCH (09:51)
[2017-05-14] MEDS: HYDROmorphone HCL PCA 6 MG/30 ML IV SCH ×2 (09:57→19:41)
[2017-05-14] MEDS: ACETAMINOPHEN 325 MG TAB PO PRN (10:52)
--- NOTE | 2017-05-14 11:39 | HHI.PR ---
Subjective Remarks resting with intermittant pain but overall more comfortable today up in chair post op day 4 Objective Vital Signs Date Time Temp Pulse Resp B/P (MAP) Pulse Ox O2 Delivery O2 Flow Rate FiO2 05/14/17 10:39 18 05/14/17 09:57 18 05/14/17 09:06 77 05/14/17 08:00 100.1 79 18 142/65 (90) 99 05/14/17 07:17 16 05/14/17 04:00 98.3 80 18 130/65 (86) 96 05/14/17 00:00 98.3 84 20 116/59 (78) 95 05/13/17 22:00 16 05/13/17 21:02 100.5 82 20 150/71 (97) 99 05/13/17 21:00 76 05/13/17 18:06 95 Nasal Cannula 2.00 05/13/17 16:35 18 05/13/17 16:00 98.9 62 16 141/65 (90) 95 05/13/17 14:02 18 05/13/17 14:00 18 05/13/17 12:41 97.9 67 17 146/68 (94) 96 05/13/17 12:07 16 05/13/17 11:48 16 I/O 05/13/17 05/13/17 05/13/17 05/14/17 05/14/17 05/14/17 06:59 14:59 22:59 06:59 14:59 22:59 Intake Total 360 ml 7.7 ml 404 ml 360 ml Output Total 10 ml Balance 350 ml 7.7 ml 404 ml 360 ml Intake Oral 360 ml 360 ml IV Total 7.7 ml 404 ml Drainage Total 10 ml # Voids 2 2 2 # Bowel Movements 0 Result Diagram: 05/13/17 0712 05/13/17 0712 Procedures S/P L4-L5 laminectomy on 05/10/17 Objective Remarks GENERAL: frail female with anxiety and back pain SKIN: Warm and dry. HEAD: Normocephalic. EYES: No scleral icterus. No injection or drainage. NECK: Supple, trachea midline. No JVD or lymphadenopathy. CARDIOVASCULAR: Regular rate and rhythm without murmurs, gallops, or rubs. RESPIRATORY: Breath sounds equal bilaterally. No accessory muscle use. GASTROINTESTINAL: Abdomen soft, non-tender, nondistended. EXTREMITIES: No cyanosis, or edema. NEUROLOGICAL: Awake, alert, and oriented x 3. Non-focal. healing lumbar incision present up in chair brace in place Medications and IVs Inpatient Medications Acetaminophen (Tylenol Supp) 650 mg Q4H PRN RECTAL Temp>101F, Headache; Start 05/07/17 at 23:45 Acetaminophen (Tylenol) 650 mg Q4H PRN PO TEMPERATURE > 101.5 F; Start at 13:00 Albuterol/ Ipratropium (Duoneb Neb) 1 ampule Q6HR NEB PRN NEB SHORTNESS OF BREATH; Start 05/08/17 at 06:30 Azithromycin (Zithromax) 250 mg Taper DAILY PO Last administered on 05/09/17 09:14; Start 05/08/17 at 08:00; Stop 05/11/17 at 06:25; Status DC Bisacodyl (Dulcolax Supp) 10 mg DAILY PRN RECTAL SEVERE CONSITIPATION; Start at 06:45 Carisoprodol (Soma) 350 mg Q8H PRN PO muscle spasms; Start 05/14/17 at 11:15 Cefazolin Sodium/ Dextrose 50 ml @ 100 mls/hr Q8H IV Last administered on 11:24; Start 05/10/17 at 20:00; Stop 05/11/17 at 12:29; Status DC Chlorhexidine Gluconate (Hibiclens 4% Top Soln) 1 applic HS TOP ; Start at 21:00; Stop 05/10/17 at 21:01; Status DC Clonidine (Catapres) 0.1 mg Q12HR PO Last administered on 05/14/17 09:50; Start 05/08/17 at 13:00 Cyclobenzaprine HCl (Flexeril) 10 mg Q8H PRN PO MUSCLE SPASM Last administered on 05/14/17 09:50; Start 05/08/17 at 06:30; Stop 05/14/17 at 11:16; Status DC Dextrose/Sodium Chloride 1,000 ml @ 42 mls/hr [id number] IV Last administered on 05/09/17 23:45; Start 05/09/17 at 21:30; Stop 05/11/17 at 06:25; Status DC Diphenhydramine HCl (Benadryl Inj) 25 mg Q6H PRN IV ITCHING; Start 05/10/17 at 13:00 Enoxaparin Sodium (Lovenox Inj) 40 mg Q24H SQ Last administered on 05/13/17 13: 35; Start 05/11/17 at 14:00 Fentanyl (Duragesic 25 Mcg Patch.72 Hr) 1 patch Q3D T-DERMAL Last administered on 05/08/17 14:26; Start 05/08/17 at 14:00; Stop 05/09/17 at 15:32 ; Status DC Fentanyl (Duragesic 50 Mcg Patch.72 Hr) 1 patch Q3D T-DERMAL Last administered on 05/09/17 17:45; Start 05/09/17 at 17:00; Stop 05/11/17 at 06:25 ; Status DC Guaifenesin (Mucinex Er) 600 mg BID PO Last administered on 05/14/17 09:50; Start 05/09/17 at 21:00 Hydromorphone HCl (Dilaudid TACK COVERER Inj) 6 mg UNSCH IV Last administered on 09:57; Start 05/10/17 at 11:45 IV Flush (NS Flush) 2 ml BID IVF Last administered on 05/14/17 09:00; Start at 21:00 Lactulose (Lactulose Liq) 30 ml DAILY PRN PO SEVERE CONSITIPATION; Start at 06:45 Magnesium Hydroxide (Milk Of Magnesia Liq) 30 ml Q12H PRN PO MILD - MODERATE CONSTIPATION; Start 05/11/17 at 06:45 Miscellaneous (Pill Splitter) 1 ea UNSCH PRN OTHER SEE LABEL COMMENTS; Start at 00:15 Miscellaneous Information ALL NURSING DEPARTME... UNSCH PRN .XX SEE LABEL COMMENTS; Start 05/10/17 at 12:15; Stop 05/11/17 at 12:14; Status DC Morphine Sulfate (Morphine Inj) 4 mg Q2H PRN IV PUSH PAIN SCALE 7 TO 10 Last administered on 05/13/17 23:49; Start 05/10/17 at 13:00 Naloxone HCl (Narcan Inj) 0.4 mg UNSCH PRN IV RESPIRATORY RATE LESS THAN 10; Start 05/10/17 at 11:45 Nicotine (Habitrol 21 Mg Patch.24 Hr) 1 patch DAILY TD ; Start 05/08/17 at 09:00 ; Stop 05/11/17 at 06:25; Status DC Ondansetron HCl (Zofran Inj) 4 mg Q6H PRN IV NAUSEA OR VOMITING; Start at 23:45 Pantoprazole Sodium (Protonix Inj) 40 mg DAILY IVP Last administered on 09:51; Start 05/11/17 at 09:00 Pantoprazole Sodium (Protonix) 40 mg DAILY PO ; Start 05/10/17 at 09:00; Stop at 12:15; Status DC TACK COVERER Dosage Infused (Pha) 1 Q8HR .XX Last administered on 05/14/17 07:17; Start 05/10/17 at 14:00 Potassium Chloride/Sodium Chloride 1,000 ml @ 42 mls/hr [id number] IV Last administered on 05/13/17 01:11; Start 05/10/17 at 13:00 Potassium Chloride (KCl) 10 meq BID PO Last administered on 05/14/17 09:50; Start 05/13/17 at 21:00 Pravastatin Sodium (Pravachol) 10 mg HS PO Last administered on 05/13/17 20:19 ; Start 05/08/17 at 21:00 Senna/Docusate Sodium (Pauly-Colace) 2 tab DAILY PRN PO constipation; Start 05/11 at 06:45 Sennosides (Senokot) 17.2 mg Q12H PRN PO MODERATE - SEVERE CONSTIPATION; Start 05/11/17 at 06:45 Sertraline HCl (Zoloft) 25 mg DAILY PO Last administered on 05/14/17 09:51; Start 05/08/17 at 09:00 Sodium Chloride 1,000 ml @ 100 mls/hr Q10H IV ; Start 05/09/17 at 17:52; Stop 05/10/17 at 12:24; Status DC Sodium Chloride (NS Flush) 2 ml UNSCH PRN IV FLUSH FLUSH AFTER USING IV ACCESS ; Start 05/07/17 at 19:45; Stop 05/10/17 at 12:14; Status DC Vancomycin HCl 1000 mg/Sodium Chloride 250 ml @ 250 mls/hr [employer] IV Last administered on 05/10/17t 11:04; Start 05/09/17 at 18:00 Assessment and Plan Problem List: (1) Status post lumbar laminectomy ICD Codes: Z98.890 - Other specified postprocedural states Assessment and Plan sp l4-5 laminectomy pod 4 pain improved lico lucio for placement Discussed Condition With patient and sister and nursing Discharge Planning Garland Gerber DO May 14, 2017 11:39
[2017-05-14] MEDS: NS + KCL 20 MEQ INJ 1,000 ML IV SCH (12:01)
--- NOTE | 2017-05-14 12:26 | HHI.NSPN ---
Note Status Status: Progress Note Interval History Diagnosis Lumbar spondylosis and radiculopathy Interval History This is a 66 year old female with history of COPD, depression, and hyperlipidemia, who presented to [facility] with intractable back pain, hip/leg pain, and abdominal pain. Her pain was very severe, woke her up in the morning. She has chrnic intractable pain, but she denies anything as severe as this in the past. She denies any history of abdominal surgeries. Her pain was so severe that she had nausea and vomiting. Patient states she's tried taking her Tylenol with Codeine for this along with aspirin with no improvement in her symptoms. She denies any fevers, recent illness or falls. Denies any chest pain or shortness of breath. Denies any loss or change in bladder. She has severe back pain with muscle spasms. The pain radiated to bothy lower extremities, but it is much worse on the right than the left. CT of the abdomen was negative. A dry wall installations mechanic was consulted and they found no intra-abdominal conditions, and the diagnosis as having referred pain from her back. Tried conservative treatment in the past with analgesics anti-inflammatories and extensive physical therapy. She has also undergone multiple epidural steroid injections with only mild temporary relief an MRI of the lumbar spine show significant loss of the space height at L4 5 with disc protrusion and neural impingement. Neurosurgical consultation was requested .. She remains in severe pain, entered in her L4-5 region with bilateral radiculopathy. She has been cleared by GI. She has flexion extension xrays ordered 05/11. POD #1. Radicular pain resolved. Reports incisional pain. No focal neurological deficits 05/14. Pain is better controled. reports constipation Labs, Micro, & Vital Signs Results Date Time Temp Pulse Resp B/P (MAP) Pulse Ox O2 Delivery O2 Flow Rate FiO2 05/14/17 10:39 18 05/14/17 09:57 18 05/14/17 09:06 77 05/14/17 08:00 100.1 79 18 142/65 (90) 99 05/14/17 07:17 16 05/14/17 04:00 98.3 80 18 130/65 (86) 96 05/14/17 00:00 98.3 84 20 116/59 (78) 95 05/13/17 22:00 16 05/13/17 21:02 100.5 82 20 150/71 (97) 99 05/13/17 21:00 76 05/13/17 18:06 95 Nasal Cannula 2.00 05/13/17 16:35 18 05/13/17 16:00 98.9 62 16 141/65 (90) 95 05/13/17 14:02 18 05/13/17 14:00 18 05/13/17 12:41 97.9 67 17 146/68 (94) 96 Constitutional Vital Signs Date Time Temp Pulse Resp B/P (MAP) Pulse Ox O2 Delivery O2 Flow Rate FiO2 05/14/17 10:39 18 05/14/17 09:57 18 05/14/17 09:06 77 05/14/17 08:00 100.1 79 18 142/65 (90) 99 05/14/17 07:17 16 05/14/17 04:00 98.3 80 18 130/65 (86) 96 05/14/17 00:00 98.3 84 20 116/59 (78) 95 05/13/17 22:00 16 05/13/17 21:02 100.5 82 20 150/71 (97) 99 05/13/17 21:00 76 05/13/17 18:06 95 Nasal Cannula 2.00 05/13/17 16:35 18 05/13/17 16:00 98.9 62 16 141/65 (90) 95 05/13/17 14:02 18 05/13/17 14:00 18 05/13/17 12:41 97.9 67 17 146/68 (94) 96 Physical Exam Cardiac exam regular without murmur Respirations to auscultation positive mild rhonchi. Abdomen soft nontender Awake and alert She appears very painful again today. She resists turning or sitting up. Dressing is dry. Minimal drain output Sensation intact by touch throughout the lower extremities Strength normal major flexion and extension groups in the lower extremities No significant extremity edema or cyanosis Medications Current Medications Current Medications Morphine Sulfate (Morphine Inj) 2 mg ONCE ONCE IV PUSH Last administered on t 19:52; Start 05/07/17 at 19:45; Stop 05/07/17 at 19:46; Status DC Ondansetron HCl (Zofran Inj) 4 mg ONCE ONCE IVP Last administered on 19:50; Start 05/07/17 at 19:45; Stop 05/07/17 at 19:46; Status DC Sodium Chloride (NS Flush) 2 ml UNSCH PRN IV FLUSH FLUSH AFTER USING IV ACCESS ; Start 05/07/17 at 19:45; Stop 05/10/17 at 12:14; Status DC Albuterol/ Ipratropium (Duoneb Neb) 1 ampule ONCE ONCE INH Last administered on 05/07/17 20:09; Start 05/07/17 at 19:45; Stop 05/07/17 at 19:46; Status DC Morphine Sulfate (Morphine Inj) 4 mg ONCE ONCE IV PUSH Last administered on 20:53; Start 05/07/17 at 20:45; Stop 05/07/17 at 20:46; Status DC Iohexol (Omnipaque 350 Inj) 95 ml STK-MED ONCE IVCONTRAST Last administered on 05/07/17 18:33; Start 05/07/17 at 18:33; Stop 05/07/17 at 21:31; Status DC Morphine Sulfate (Morphine Inj) 4 mg ONCE ONCE IV PUSH Last administered on 22:57; Start 05/07/17 at 23:00; Stop 05/07/17 at 23:01; Status DC Ondansetron HCl (Zofran Inj) 4 mg Q6H PRN IV NAUSEA OR VOMITING; Start at 23:45 Acetaminophen (Tylenol) 650 mg Q4H PRN PO Temp>101F, Headache Last administered on 05/14/17 10:52; Start 05/07/17 at 23:45 Acetaminophen (Tylenol Supp) 650 mg Q4H PRN RECTAL Temp>101F, Headache; Start 05/07/17 at 23:45 Morphine Sulfate (Morphine Inj) 2 mg Q2H PRN IV PUSH ABDOMINAL PAIN Last administered on 05/10/17 05:38; Start 05/07/17 at 23:45; Stop 05/10/17 at 12:22 ; Status DC Pantoprazole Sodium (Protonix Inj) 40 mg DAILY IVP Last administered on 09:13; Start 05/08/17 at 09:00; Stop 05/09/17 at 10:15; Status DC Sodium Chloride 1,000 ml @ 125 mls/hr Q8H IV ; Start 05/07/17 at 23:41; Stop at 06:57; Status DC Albuterol/ Ipratropium (Duoneb Neb) 1 ampule Q4HR NEB PRN NEB SHORTNESS OF BREATH; Start 05/08/17 at 00:15; Stop 05/08/17 at 07:01; Status DC Sertraline HCl (Zoloft) 25 mg DAILY PO Last administered on 05/14/17 09:51; Start 05/08/17 at 09:00 Pravastatin Sodium (Pravachol) 10 mg HS PO Last administered on 05/13/17 20:19 ; Start 05/08/17 at 21:00 Miscellaneous (Pill Splitter) 1 ea UNSCH PRN OTHER SEE LABEL COMMENTS; Start at 00:15 Cyclobenzaprine HCl (Flexeril) 10 mg Q8H PRN PO MUSCLE SPASM Last administered on 05/14/17 09:50; Start 05/08/17 at 06:30; Stop 05/14/17 at 11:16; Status DC Albuterol/ Ipratropium (Duoneb Neb) 1 ampule Q6HR NEB PRN NEB SHORTNESS OF BREATH; Start 05/08/17 at 06:30 Azithromycin (Zithromax) 250 mg Taper DAILY PO Last administered on 05/09/17 09:14; Start 05/08/17 at 08:00; Stop 05/11/17 at 06:25; Status DC Nicotine (Habitrol 21 Mg Patch.24 Hr) 1 patch DAILY TD ; Start 05/08/17 at 09:00 ; Stop 05/11/17 at 06:25; Status DC Enoxaparin Sodium (Lovenox Inj) 40 mg Q24H SQ Last administered on 05/09/17 09 :16; Start 05/08/17 at 08:00; Stop 05/09/17 at 21:24; Status DC Miscellaneous Information 1 HS T-DERMAL ; Start 05/08/17 at 21:00; Stop 05/11/17 at 06:25; Status DC Clonidine (Catapres) 0.1 mg Q12HR PO Last administered on 05/14/17 09:50; Start 05/08/17 at 13:00 Potassium Chloride (KCl) 20 meq Q12HR PO Last administered on 05/09/17 21:21; Start 05/08/17 at 13:00; Stop 05/11/17 at 06:25; Status DC Fentanyl (Duragesic 25 Mcg Patch.72 Hr) 1 patch Q3D T-DERMAL Last administered on 05/08/17 14:26; Start 05/08/17 at 14:00; Stop 05/09/17 at 15:32 ; Status DC Miscellaneous Information 1 Q3D T-DERMAL ; Start 05/11/17 at 14:00; Stop 05/11/17 at 14:00; Status DC Guaifenesin (Mucinex Er) 600 mg BID PO Last administered on 05/14/17 09:50; Start 05/09/17 at 21:00 Pantoprazole Sodium (Protonix) 40 mg DAILY PO ; Start 05/10/17 at 09:00; Stop at 12:15; Status DC Sodium Chloride 1,000 ml @ 100 mls/hr Q10H IV Last administered on 05/09/17 23:45; Start 05/09/17 at 13:04; Stop 05/10/17 at 12:24; Status DC Cefazolin Sodium/ Dextrose 50 ml @ 150 mls/hr ONCE ONCE IV Last administered on 05/09/17 17:34; Start 05/09/17 at 13:15; Stop 05/09/17 at 17:56; Status DC Vancomycin HCl 1000 mg/Sodium Chloride 250 ml @ 250 mls/hr ONCE ONCE IV ; Start 05/09/17 at 13:15; Stop 05/09/17 at 17:56; Status DC Chlorhexidine Gluconate (Hibiclens 4% Top Soln) 1 applic HS TOP ; Start at 21:00; Stop 05/10/17 at 21:01; Status DC Fentanyl (Duragesic 50 Mcg Patch.72 Hr) 1 patch Q3D T-DERMAL Last administered on 05/09/17 17:45; Start 05/09/17 at 17:00; Stop 05/11/17 at 06:25 ; Status DC Miscellaneous Information 1 Q3D T-DERMAL Last administered on 05/09/17 17:00; Start 05/09/17 at 17:00; Stop 05/11/17 at 06:25; Status DC Sodium Chloride 1,000 ml @ 100 mls/hr Q10H IV ; Start 05/09/17 at 17:52; Stop 05/10/17 at 12:24; Status DC Cefazolin Sodium/ Dextrose 50 ml @ 150 mls/hr JEWELRY SORTER IV Last administered on 05/10/17 11:03; Start 05/09/17 at 18:00 Vancomycin HCl 1000 mg/Sodium Chloride 250 ml @ 250 mls/hr JEWELRY SORTER IV Last administered on 05/10/17 11:04; Start 05/09/17 at 18:00 Chlorhexidine Gluconate (Hibiclens 4% Top Soln) 1 applic HS TOP ; Start at 21:00; Stop 05/10/17 at 21:01; Status DC Vancomycin HCl 1000 mg/Sodium Chloride 250 ml @ 250 mls/hr JEWELRY SORTER IV ; Start 05/09/17 at 18:00; Status Cancel Dextrose/Sodium Chloride 1,000 ml @ 42 mls/hr [id number] IV Last administered on 05/09/17 23:45; Start 05/09/17 at 21:30; Stop 05/11/17 at 06:25; Status DC Thrombin (Thrombin Top Soln) 10,000 units STK-MED ONCE .ROUTE Last administered on 05/10/17 09:40; Start 05/10/17 at 07:02; Stop 05/10/17 at 07:03 ; Status DC Gelatin (Gelfoam 100 Top) 1 foam STK-MED ONCE .ROUTE Last administered on 09:40; Start 05/10/17 at 07:03; Stop 05/10/17 at 07:04; Status DC Gentamicin Sulfate (Gentamicin Inj) 240 mg STK-MED ONCE .ROUTE Last administered on 05/10/17 09:40; Start 05/10/17 at 07:03; Stop 05/10/17 at 07:04 ; Status DC Acetaminophen 100 ml @ As Directed STK-MED ONCE IV ; Start 05/10/17 at 07:44; Stop 05/10/17 at 07:45; Status DC Artificial Tears (Lacrilube Opht Oint) 3.5 applic STK-MED ONCE .ROUTE ; Start at 07:44; Stop 05/10/17 at 07:45; Status DC Midazolam HCl (Versed Inj) 2 mg STK-MED ONCE .ROUTE ; Start 05/10/17 at 07:44; Stop 05/10/17 at 07:45; Status DC Fentanyl Citrate (fentaNYL INJ) 100 mcg STK-MED ONCE .ROUTE ; Start 05/10/17 at 07:44; Stop 05/10/17 at 07:45; Status DC Fentanyl Citrate (fentaNYL INJ) 400 mcg STK-MED ONCE .ROUTE ; Start 05/10/17 at 07:45; Stop 05/10/17 at 07:46; Status DC Famotidine (Pepcid Inj) 20 mg STK-MED ONCE .ROUTE ; Start 05/10/17 at 07:45; Stop 05/10/17 at 07:46; Status DC Sodium Chloride 100 ml @ As Directed STK-MED ONCE .ROUTE Last administered on 05/10/17 09:40; Start 05/10/17 at 08:01; Stop 05/10/17 at 08:02; Status DC Fentanyl Citrate (fentaNYL INJ) 200 mcg STK-MED ONCE .ROUTE ; Start 05/10/17 at 09:45; Stop 05/10/17 at 09:46; Status DC Bupivacaine HCl (Marcaine Pf 0.5% Inj) 30 ml STK-MED ONCE .ROUTE Last administered on 05/10/17 11:26; Start 05/10/17 at 11:26; Stop 05/10/17 at 11:27 ; Status DC Potassium Chloride/Sodium Chloride 1,000 ml @ 42 mls/hr [id number] IV Last administered on 05/13/17 01:11; Start 05/10/17 at 13:00 IV Flush (NS Flush) 2 ml UNSCH PRN IVF FLUSH AFTER USING IV ACCESS; Start 05/10 at 11:45 IV Flush (NS Flush) 2 ml BID IVF Last administered on 05/14/17 09:00; Start at 21:00 Cefazolin Sodium/ Dextrose 50 ml @ 100 mls/hr Q8H IV Last administered on 11:24; Start 05/10/17 at 20:00; Stop 05/11/17 at 12:29; Status DC Pantoprazole Sodium (Protonix Inj) 40 mg DAILY IVP Last administered on 09:51; Start 05/11/17 at 09:00 Morphine Sulfate (Morphine Inj) 2 mg Q2H PRN IV PUSH PAIN SCALE 1 TO 6; Start 05/10/17 at 13:00 Morphine Sulfate (Morphine Inj) 4 mg Q2H PRN IV PUSH PAIN SCALE 7 TO 10 Last administered on 05/13/17 23:49; Start 05/10/17 at 13:00 Acetaminophen (Tylenol) 650 mg Q4H PRN PO TEMPERATURE > 101.5 F; Start at 13:00 Naloxone HCl (Narcan Inj) 0.4 mg UNSCH PRN IV RESPIRATORY RATE LESS THAN 10; Start 05/10/17 at 11:45 Diphenhydramine HCl (Benadryl Inj) 25 mg Q6H PRN IV ITCHING; Start 05/10/17 at 13:00 Hydromorphone HCl (Dilaudid PUMP RUNNER Inj) 6 mg UNSCH IV Last administered on 09:57; Start 05/10/17 at 11:45 PUMP RUNNER Dosage Infused (Pha) 1 Q8HR .XX Last administered on 05/14/17 07:17; Start 05/10/17 at 14:00 Miscellaneous Information ALL NURSING DEPARTME... UNSCH PRN .XX SEE LABEL COMMENTS; Start 05/10/17 at 12:15; Stop 05/11/17 at 12:14; Status DC Magnesium Hydroxide (Milk Of Magnesia Liq) 30 ml Q12H PRN PO MILD - MODERATE CONSTIPATION; Start 05/11/17 at 06:45 Sennosides (Senokot) 17.2 mg Q12H PRN PO MODERATE - SEVERE CONSTIPATION; Start 05/11/17 at 06:45 Bisacodyl (Dulcolax Supp) 10 mg DAILY PRN RECTAL SEVERE CONSITIPATION; Start at 06:45 Lactulose (Lactulose Liq) 30 ml DAILY PRN PO SEVERE CONSITIPATION; Start at 06:45 Senna/Docusate Sodium (Pauly-Colace) 2 tab DAILY PRN PO constipation; Start 05/11 at 06:45 Enoxaparin Sodium (Lovenox Inj) 40 mg Q24H SQ Last administered on 05/13/17 13: 35; Start 05/11/17 at 14:00 Potassium Chloride (KCl) 10 meq BID PO Last administered on 05/14/17 09:50; Start 05/13/17 at 21:00 Carisoprodol (Soma) 350 mg Q8H PRN PO muscle spasms; Start 05/14/17 at 11:15 Medical Decision Making MDM Remarks Last 48 hours Impressions Lumbar Spine MRI 05/08/17 0000 Signed Impressions: Service Date/Time: Monday, May 08, 2017 13:59 - CONCLUSION: 1. Scattered degenerative changes. Most pronounced at L4-L5 with abutment of the right L4 nerve root within the neural foramen and potential source for right L4 radiculopathy. Each level detailed in the above discussion. Luigi Nolen Jr., MD Chest X-Ray 05/07/[id number] Signed Impressions: Service Date/Time: Sunday, May 07, 2017 19:32 - CONCLUSION: Normal examination. Claus Hill MD Abdomen/Pelvis CT 05/07/171935 Signed Impressions: Service Date/Time: Sunday, May 07, 2017 21:28 - CONCLUSION: 1. No acute abnormality seen. 2. Possible small hiatal hernia. MD Gil Pinto VTE Risk Assessment Stanislavrini VTE Risk Assessment: Mod/High Risk (score >= 2) Caprini Risk Assessment Model Point Value = 1 Point Value = 2 Point Value = 3 Point Value = 5 Age 41-60 Minor surgery BMI > 25 kg/m2 Swollen legs Varicose veins or History of unexplained or recurrent spontaneous Oral contraceptives or hormone replacement Sepsis (< 1 month) Serious lung disease, including pneumonia (< 1 month) Abnormal pulmonary function Acute myocardial infarction Congestive heart failure (< 1 month) History of inflammatory bowel disease Medical patient at bed rest Age 61-74 Arthroscopic surgery Major open surgery (> 45 min) Laparoscopic surgery (> 45 min) Malignancy Confined to bed (> 72 hours) Immobilizing plaster cast Central venous access Age >= 75 History of VTE Family history of VTE Factor V Leiden Prothrombin 33000L Lupus anticoagulant Anticardiolipin antibodies Elevated serum homocysteine Heparin-induced thrombocytopenia Other congenital or acquired thrombophilia Stroke (< 1 month) Elective arthroplasty Hip, pelvis, or leg fracture Acute spinal cord injury (< 1 month) Prophylaxis Regimen Total Risk Factor Score Risk Level Prophylaxis Regimen 0-1 Low Early ambulation 2 Moderate Order ONE of the following: *Sequential Compression Device (SCD) *Heparin 5000 units SQ BID 3-4 Higher Order ONE of the following medications: *Heparin 5000 units SQ TID *Enoxaparin/Lovenox 40 mg SQ daily (WT < 150 kg, CrCl > 30 mL/min) *Enoxaparin/Lovenox 30 mg SQ daily (WT < 150 kg, CrCl > 10-29 mL/min) *Enoxaparin/Lovenox 30 mg SQ BID (WT < 150 kg, CrCl > 30 mL/min) AND/OR *Sequential Compression Device (SCD) 5 or more Highest Order ONE of the following medications: *Heparin 5000 units SQ TID (Preferred with Epidurals) *Enoxaparin/Lovenox 40 mg SQ daily (WT < 150 kg, CrCl > 30 mL/min) *Enoxaparin/Lovenox 30 mg SQ daily (WT < 150 kg, CrCl > 10-29 mL/min) *Enoxaparin/Lovenox 30 mg SQ BID (WT < 150 kg, CrCl > 30 mL/min) AND *Sequential Compression Device (SCD) Plan Plan Remarks 1. Stable neurologic exam postoperatively. Postoperative low back pain presently controlled with PUMP RUNNER. 2. Hypokalemia 3. Postoperative constipation Attending Statement Continue daily physical therapy Offered nicotine patch hypokalemia. Replaced Continuing laxatives-no bowel movement postoperative period remains on Pauly- Colace, Senokot, Dulcolax. Constipation likely to remain a problem as long as she is on increased narcotics and not mobilizing well. On Lovenox for DVT prophylaxis. Real Arnold MD May 14, 2017 12:26
[2017-05-14] MEDS: ENOXAPARIN SODIUM 40 MG/0.4 ML SYRINGE SQ SCH (16:18)
[2017-05-14] MEDS: CARISOPRODOL 350 MG TAB PO PRN (19:42)
[2017-05-14] MEDS: PRAVASTATIN SOD 10 MG TAB PO SCH (20:37)
[2017-05-14] MEDS: MORPHINE SULFATE 4 MG/ML INJ IV PUSH PRN (20:40)
[2017-05-15] VITALS (13 sets, daily range): BP systolic 102–157; BP diastolic 60–78; PULSE 74–89; RESP 16–18; TEMP 98–99.6; O2SAT 91–97
[2017-05-15] MEDS: MORPHINE SULFATE 4 MG/ML INJ IV PUSH PRN ×6 (03:52→20:52)
[2017-05-15] MEDS: NS + KCL 20 MEQ INJ 1,000 ML IV SCH (03:56)
[2017-05-15] MEDS: HYDROmorphone HCL PCA 6 MG/30 ML IV SCH ×3 (04:35→17:26)
[2017-05-15] MEDS: CARISOPRODOL 350 MG TAB PO PRN ×2 (04:55→16:28)
[2017-05-15] MEDS: SODIUM CHLORIDE 0.9% FLUSH 5 ML FLUSH IVF SCH ×2 (09:00→20:47)
[2017-05-15] MEDS: LACTULOSE SYRUP 20 GM/30 ML CUP PO PRN (09:41)
[2017-05-15] MEDS: cloNIDine HCL 0.1 MG TAB PO SCH ×2 (09:41→20:47)
[2017-05-15] MEDS: POTASSIUM CHLORIDE 10 MEQ CAP PO SCH ×2 (09:42→20:47)
[2017-05-15] MEDS: SERTRALINE HCL 50 MG TAB PO SCH (09:43)
[2017-05-15] MEDS: guaiFENesin E.R. 600 MG TAB PO SCH ×2 (09:43→20:47)
[2017-05-15] MEDS: PANTOPRAZOLE SODIUM 40 MG VIAL IVP SCH (09:51)
--- NOTE | 2017-05-15 11:10 | HHI.PR ---
Subjective Remarks Denies and CP or SOB. Dilaudid ACCESS DATABASE DEVELOPER pump pain is not well controlled. Objective Vital Signs Date Time Temp Pulse Resp B/P (MAP) Pulse Ox O2 Delivery O2 Flow Rate FiO2 05/15/17 09:27 92 21 05/15/17 04:55 98.0 74 18 137/64 (88) 96 05/15/17 04:35 18 05/15/17 00:48 99.1 75 17 102/64 (77) 94 05/14/17 22:00 16 05/14/17 21:15 Nasal Cannula 2.00 05/14/17 20:35 99.7 75 132/61 (84) 97 05/14/17 19:41 16 05/14/17 19:00 74 05/14/17 16:00 98.6 70 18 126/60 (82) 97 05/14/17 14:00 18 05/14/17 14:00 18 05/14/17 12:00 98.9 78 18 116/57 (76) 95 I/O 05/14/17 05/14/17 05/14/17 05/15/17 05/15/17 05/15/17 07:00 15:00 23:00 07:00 15:00 23:00 Intake Total 360 ml 600 ml 397 ml 360 ml Balance 360 ml 600 ml 397 ml 360 ml Intake Oral 360 ml 600 ml 360 ml IV Total 397 ml # Voids 2 7 3 Result Diagram: 05/13/1771105/13/17 0712 Procedures S/P L4-L5 laminectomy on 05/10/17 Objective Remarks GENERAL: Alert and oriented. SKIN: Warm and dry. Dressing intact on lower back. HEAD: Normocephalic. EYES: No scleral icterus. No injection or drainage. NECK: Supple, trachea midline. No JVD or lymphadenopathy. CARDIOVASCULAR: Regular rate and rhythm without murmurs, gallops, or rubs. RESPIRATORY: Breath sounds equal bilaterally. No accessory muscle use. GASTROINTESTINAL: Abdomen soft, non-tender, nondistended. MUSCULOSKELETAL: No cyanosis, or edema. BACK: Nontender without obvious deformity. No CVA tenderness. Medications and IVs Current Medications Medications (Trade) Dose Ordered Sig/Misael Route Start Time Stop Time Status Last Admin (Zofran Inj) 4 mg Q6H PRN IV 05/07/17 23:45 (Tylenol) 650 mg Q4H PRN PO 05/07/17 23:45 05/14/17 10:52 (Tylenol Supp) 650 mg Q4H PRN RECTAL 05/07/17 23:45 (Zoloft) 25 mg DAILY PO 05/08/17 09:00 05/15/17 09:43 (Pravachol) 10 mg HS PO 05/08/17 21:00 05/14/17 20:37 (Pill Splitter) 1 ea UNSCH PRN OTHER 05/08/17 00:15 (Duoneb Neb) 1 ampule Q6HR NEB PRN NEB 05/08/17 06:30 (Catapres) 0.1 mg Q12HR PO 05/08/17 13:00 05/15/17 09:41 (Mucinex Er) 600 mg BID PO 05/09/17 21:00 05/15/17 09:43 Cefazolin Sodium/ Dextrose 50 ml @ 150 mls/hr AUDIO VISUAL DESIGN ENGINEER IV 05/09/17 18:00 05/10/17 11:03 Vancomycin HCl 1000 mg/Sodium Chloride 250 ml @ 250 mls/hr AUDIO VISUAL DESIGN ENGINEER IV 05/09/17 18:00 05/10/17 11:04 Potassium Chloride/Sodium Chloride 1,000 ml @ 42 mls/hr [id number] IV 05/10/17 13:00 05/15/17 03:56 (NS Flush) 2 ml UNSCH PRN IVF 05/10/17 11:45 (NS Flush) 2 ml BID IVF 05/10/17 21:00 05/15/17 09:00 (Protonix Inj) 40 mg DAILY IVP 05/11/17 09:00 05/15/17 09:51 (Morphine Inj) 2 mg Q2H PRN IV PUSH 05/10/17 13:00 (Morphine Inj) 4 mg Q2H PRN IV PUSH 05/10/17 13:00 05/15/17 09:40 (Tylenol) 650 mg Q4H PRN PO 05/10/17 13:00 (Narcan Inj) 0.4 mg UNSCH PRN IV 05/10/17 11:45 (Benadryl Inj) 25 mg Q6H PRN IV 05/10/17 13:00 (Dilaudid ACCESS DATABASE DEVELOPER Inj) 6 mg UNSCH IV 05/10/17 11:45 9/5/17 04:35 ACCESS DATABASE DEVELOPER Dosage Infused (Pha) 1 Q8HR .XX 05/10/17 14:00 05/14/17 14:00 (Milk Of Magnesia Liq) 30 ml Q12H PRN PO 05/11/17 06:45 (Senokot) 17.2 mg Q12H PRN PO 05/11/17 06:45 (Dulcolax Supp) 10 mg DAILY PRN RECTAL 05/11/17 06:45 (Lactulose Liq) 30 ml DAILY PRN PO 05/11/17 06:45 05/15/17 09:41 (Pauly-Colace) 2 tab DAILY PRN PO 05/11/17 06:45 05/15/17 09:42 (Lovenox Inj) 40 mg Q24H SQ 05/11/17 14:00 05/14/17 16:18 (KCl) 10 meq BID PO 05/13/17 21:00 05/15/17 09:42 (Soma) 350 mg Q8H PRN PO 05/14/17 11:15 05/15/17 04:55 Assessment and Plan Problem List: (1) Status post lumbar laminectomy ICD Codes: Z98.890 - Other specified postprocedural states (2) Back pain ICD Codes: M54.9 - Dorsalgia, unspecified (3) Depression ICD Codes: F32.9 - Major depressive disorder, single episode, unspecified (4) Tobacco abuse ICD Codes: Z72.0 - Tobacco use (5) COPD (chronic obstructive pulmonary disease) with acute bronchitis ICD Codes: J44.0 - Chronic obstructive pulmonary disease with acute lower respiratory infection (6) Abdominal pain ICD Codes: R10.9 - Unspecified abdominal pain Assessment and Plan 05/08/17 Abdominal pain- GI consulted Presented to ED with abdominal pain for 1 day. Nausea and vomiting reported. The pain was so intense that she was awaken from sleep. She was not able to even stand initially and crawled to bathroom. Abdomen only mildly tender on palpation no guarding present. Pain spasmatic radiating to back. Has morphine for pain. CT of abdomen with no acute abnormality found. Small hiatal hernia. On IV Protonix and IVF's. Zofran PRN Back pain: Patient with pain radiating to back. Is spasmodic in nature. No fall reported. Will order muscle relaxer and imaging. COPD with acute bronchitis- Lung sounds are rhonchi and WBC elevated at 14.3 will start Azithromycin and breathing treatments. Depression - continue zoloft. Reported that her mother on April 10 and she has been very depressed. HLD- continue statin DVT and GI prophylaxis ordered. 05/09/17 Abdominal pain- GI consulted and cleared. Will need to reconsult for further or continued problems. Presented to ED with abdominal pain for 1 day. Nausea and vomiting reported. The pain was so intense that she was awaken from sleep. She was not able to even stand initially and crawled to bathroom. Abdomen non tender on palpation no guarding present. Pain spasmatic radiating to back. Has morphine for pain. CT of abdomen with no acute abnormality found. Small hiatal hernia. On IV Protonix changed to PO. Zofran PRN Back pain: Patient with pain radiating to back. Is spasmodic in nature. No fall reported. On muscle relaxer and IV morphine. Imaging with lumbar spinal stenosis. Neuro checks in a serial fashion. Nonoperative treatment with analgesics versus pain management. A surgical decompression will be offered as a last resort only per Neurosurgeon note. Discussed with Dr. Cowart interventional radiology consulted for epidural steroid injection. Fentanyl patch increased per Dr. Cowart. Gaudencio hold PT today. COPD with acute bronchitis- Lung sounds are rhonchi on Azithromycin and breathing treatments. Mucinex added. Depression - continue zoloft. Reported that her mother on April 10 and she has been very depressed. HLD- continue statin 05/10/17 Abdominal pain- Resolved Back pain: Patient with pain radiating to back. Is spasmodic in nature. No fall reported. On muscle relaxer and IV morphine. Imaging with lumbar spinal stenosis. Neuro checks in a serial fashion. Nonoperative treatment with analgesics versus pain management. A surgical decompression will be offered as a last resort only per Neurosurgeon note. Discussed with Dr. Cowart interventional radiology consulted for epidural steroid injection. Fentanyl patch increased per Dr. Cowart. Plan for laminectomy today. Hyponatremia: NA 132 this AM. Will continue to monitor and recheck in AM COPD with acute bronchitis- Azithromycin and breathing treatments. Mucinex added. Chest Xray with no acute findings. Lung sounds improved Depression - continue zoloft. HLD- continue statin 05/11/17 S/P L4-L5 laminectomy: POD #1. Dressing intact. GULSHAN drain with 20 ml of serous drainage. Pain well controlled on Dilaudid ACCESS DATABASE DEVELOPER will continue muscle relaxer as need. Has started PT already. Will need to assess for discharge needs with progress with PT. Hyponatremia: Labs pending. Will monitor. COPD with acute bronchitis- Antibiotics, breathing treatments and on mucinex. Chest Xray with no acute findings. Depression - continue zoloft. In good spirits this morning HLD- continue statin Abdominal pain- Resolved GI prophylaxis and SCD Labs pending this am 05/15/17 S/P L4-L5 laminectomy:. Dressing intact. Pain continues to be a issue on Dilaudid ACCESS DATABASE DEVELOPER and SOMA. Not moving well. Hyponatremia: Labs pending. Will monitor. COPD with acute bronchitis- Antibiotics completed, breathing treatments PRN. Chest Xray with no acute findings. Depression - continue zoloft. HLD- continue statin Labs ordered and pending for today On GI and DVT prophylaxis. [facility] and the AOC DIRECTOR COMBAT OPERATIONS OFFICER have both examined this patient and reviewed this note and I agree with these findings and plan of care. Hawa Reilly. AOC DIRECTOR COMBAT OPERATIONS OFFICER May 15, 2017 11:10
[2017-05-15] MEDS: ENOXAPARIN SODIUM 40 MG/0.4 ML SYRINGE SQ SCH (13:39)
[2017-05-15] MEDS: PCA - TOTAL MG DILAUDID DELIVERED PER SHIFT SCH ×2 (14:00→21:49)
--- NOTE | 2017-05-15 16:30 | HHI.NSPN ---
(Tiara Walsh) Note Status Status: Progress Note (Tiara Walsh) Interval History Interval History This is a 66 year old female with history of COPD, depression, and hyperlipidemia, who presented to [facility] with intractable back pain, hip/leg pain, and abdominal pain. Her pain was very severe, woke her up in the morning. She has chrnic intractable pain, but she denies anything as severe as this in the past. She denies any history of abdominal surgeries. Her pain was so severe that she had nausea and vomiting. Patient states she's tried taking her Tylenol with Codeine for this along with aspirin with no improvement in her symptoms. She denies any fevers, recent illness or falls. Denies any chest pain or shortness of breath. Denies any loss or change in bladder. She has severe back pain with muscle spasms. The pain radiated to bothy lower extremities, but it is much worse on the right than the left. CT of the abdomen was negative. A overage shortage and damage clerk was consulted and they found no intra-abdominal conditions, and the diagnosis as having referred pain from her back. Tried conservative treatment in the past with analgesics anti-inflammatories and extensive physical therapy. She has also undergone multiple epidural steroid injections with only mild temporary relief an MRI of the lumbar spine show significant loss of the space height at L4 5 with disc protrusion and neural impingement. Neurosurgical consultation was requested 05.09. She remains in severe pain, entered in her L4-5 region with bilateral radiculopathy. She has been cleared by GI. She has flexion extension xrays ordered 05/11. POD #1. Radicular pain resolved. Reports incisional pain. No focal neurological deficits 05/14. Pain is better controled. reports constipation 05/15 doing ok, continues to reports lumbar pain (Tiara Walsh) Labs, Micro, & Vital Signs Results Date Time Temp Pulse Resp B/P (MAP) Pulse Ox O2 Delivery O2 Flow Rate FiO2 05/15/17 14:00 16 05/15/17 12:31 16 05/15/17 12:00 98.6 81 16 155/78 (103) 97 05/15/17 11:46 82 05/15/17 09:41 17 05/15/17 09:27 92 21 05/15/17 08:00 98.0 78 16 135/68 (90) 92 05/15/17 04:55 98.0 74 18 137/64 (88) 96 05/15/17 04:35 18 05/15/17 00:48 99.1 75 17 102/64 (77) 94 05/14/17 22:00 16 05/14/17 21:15 Nasal Cannula 2.00 05/14/17 20:35 99.7 75 132/61 (84) 97 05/14/17 19:41 16 05/14/17 19:00 74 Constitutional Vital Signs Date Time Temp Pulse Resp B/P (MAP) Pulse Ox O2 Delivery O2 Flow Rate FiO2 05/15/17 14:00 16 05/15/17 12:31 16 05/15/17 12:00 98.6 81 16 155/78 (103) 97 05/15/17 11:46 82 05/15/17 09:41 17 05/15/17 09:27 92 21 05/15/17 08:00 98.0 78 16 135/68 (90) 92 05/15/17 04:55 98.0 74 18 137/64 (88) 96 05/15/17 04:35 18 05/15/17 00:48 99.1 75 17 102/64 (77) 94 05/14/17 22:00 16 05/14/17 21:15 Nasal Cannula 2.00 05/14/17 20:35 99.7 75 132/61 (84) 97 05/14/17 19:41 16 05/14/17 19:00 74 (Tiara Walsh) Review of Systems Constitutional: DENIES: Fever Musculoskeletal: COMPLAINS OF: Back pain (Tiara Walsh) Physical Exam Awake and alert appears somewhat uncomfortable due to back pain, no acute distress limited turning in bed due to pain Sensation intact by touch throughout the lower extremities moves all four extremities nonlabored respirations (Tiara Walsh) Medications Current Medications Current Medications Medications (Trade) Dose Ordered Sig/Misael Route PRN Reason Start Time Stop Time Status Last Admin Dose Admin Ondansetron HCl (Zofran Inj) 4 mg Q6H PRN IV NAUSEA OR VOMITING 05/07/17 23:45 Acetaminophen (Tylenol) 650 mg Q4H PRN PO Temp>101F, Headache 05/07/17 23:45 05/14/17 10:52 Acetaminophen (Tylenol Supp) 650 mg Q4H PRN RECTAL Temp>101F, Headache 05/07/17 23:45 Sertraline HCl (Zoloft) 25 mg DAILY PO 05/08/17 09:00 05/15/17 09:43 Pravastatin Sodium (Pravachol) 10 mg HS PO 05/08/17 21:00 05/14/17 20:37 Miscellaneous (Pill Splitter) 1 ea UNSCH PRN OTHER SEE LABEL COMMENTS 05/08/17 00:15 Albuterol/ Ipratropium (Duoneb Neb) 1 ampule Q6HR NEB PRN NEB SHORTNESS OF BREATH 05/08/17 06:30 Clonidine (Catapres) 0.1 mg Q12HR PO 05/08/17 13:00 05/15/17 09:41 Guaifenesin (Mucinex Er) 600 mg BID PO 05/09/17 21:00 05/15/17 09:43 Cefazolin Sodium/ Dextrose 50 ml @ 150 mls/hr PLATING TANK OPERATOR IV 05/09/17 18:00 05/10/17 11:03 Vancomycin HCl 1000 mg/Sodium Chloride 250 ml @ 250 mls/hr PLATING TANK OPERATOR IV 05/09/17 18:00 05/10/17 11:04 Potassium Chloride/Sodium Chloride 1,000 ml @ 42 mls/hr [id number] IV 05/10/17 13:00 05/15/17 03:56 IV Flush (NS Flush) 2 ml UNSCH PRN IVF FLUSH AFTER USING IV ACCESS 05/10/17 11:45 IV Flush (NS Flush) 2 ml BID IVF 05/10/17 21:00 05/15/17 09:00 Pantoprazole Sodium (Protonix Inj) 40 mg DAILY IVP 05/11/17 09:00 05/15/17 09:51 Morphine Sulfate (Morphine Inj) 2 mg Q2H PRN IV PUSH PAIN SCALE 1 TO 6 05/10/17 13:00 Morphine Sulfate (Morphine Inj) 4 mg Q2H PRN IV PUSH PAIN SCALE 7 TO 10 05/10/17 13:00 05/15/17 16:21 Acetaminophen (Tylenol) 650 mg Q4H PRN PO TEMPERATURE > 101.5 F 05/10/17 13:00 Naloxone HCl (Narcan Inj) 0.4 mg UNSCH PRN IV RESPIRATORY RATE LESS THAN 10 05/10/17 11:45 Diphenhydramine HCl (Benadryl Inj) 25 mg Q6H PRN IV ITCHING 05/10/17 13:00 Hydromorphone HCl (Dilaudid STEWARD/STEWARDESS SMOKE ROOM Inj) 6 mg UNSCH IV 05/10/17 11:45 05/15/17 12:31 STEWARD/STEWARDESS SMOKE ROOM Dosage Infused (Pha) 1 Q8HR .XX 05/10/17 14:00 05/15/17 14:00 Magnesium Hydroxide (Milk Of Magnesia Liq) 30 ml Q12H PRN PO MILD - MODERATE CONSTIPATION 05/11/17 06:45 Sennosides (Senokot) 17.2 mg Q12H PRN PO MODERATE - SEVERE CONSTIPATION 05/11/17 06:45 Bisacodyl (Dulcolax Supp) 10 mg DAILY PRN RECTAL SEVERE CONSITIPATION 05/11/17 06:45 Lactulose (Lactulose Liq) 30 ml DAILY PRN PO SEVERE CONSITIPATION 05/11/17 06:45 05/15/17 09:41 Senna/Docusate Sodium (Pauly-Colace) 2 tab DAILY PRN PO constipation 05/11/17 06:45 05/15/17 09:42 Enoxaparin Sodium (Lovenox Inj) 40 mg Q24H SQ 05/11/17 14:00 05/15/17 13:39 Potassium Chloride (KCl) 10 meq BID PO 05/13/17 21:00 05/15/17 09:42 Carisoprodol (Soma) 350 mg Q8H PRN PO muscle spasms 05/14/17 11:15 05/15/17 04:55 (Tiara Walsh) Medical Decision Making MDM Remarks 66 y/o female s/p L4-5 laminectomy, interbody arthrodhesis using PEEK cage and autologous bone graft, L4-5 instrumental fixation using transpedicular screws and rods, L4- 5 posterolateral fusion using autologous bone graft and rods. Microsurgical dissection for severe lumbar spondylosis Stable neurologic exam postoperatively. (Tiara Walsh) Plan Plan Remarks cont Physical Therapy cont rehab efforts (Tiara Walsh) Attending Statement The exam, history, and the medical decision-making described in the above note were completed with the assistance of the mid-level provider. I reviewed and agree with the findings presented. I attest that I had a [id number] encounter with the patient on the same day, and personally performed and documented my assessment and findings in the medical record. (Real Arnold MD) Tiara Walsh May 15, 2017 16:30 Real Arnold MD May 27, 2017 22:00
[2017-05-15 19:14] LABS: HEMATOCRIT 29.5 % (35.0-46.0); MEAN CELL VOLUME 92.3 FL (80.0-100.0); MEAN CORPUSCULAR HEMOGLOBIN 30.8 PG (27.0-34.0); MEAN CORPUSCULAR HGB CONC 33.3 % (32.0-36.0); PLATELET COUNT 301 TH/MM3 (150-450); REVIEW FLAG FINAL; WHITE BLOOD COUNT 8.6 TH/MM3 (4.0-11.0)
[2017-05-15 19:37] LABS: BICARBONATE 23.1 MEQ/L (21.0-32.0); POTASSIUM 3.3 MEQ/L (3.5-5.1)
[2017-05-15] MEDS ORDERED: cloNIDine HCL 0.1 MG/24 HR PATCH T-DERMAL SCH (20:00)
[2017-05-15] MEDS ORDERED: POTASSIUM CHLORIDE 20 MEQ CONTROLLED RELEASE TAB PO ONE (20:30)
[2017-05-15] MEDS: PRAVASTATIN SOD 10 MG TAB PO SCH (20:47)
[2017-05-15] MEDS: PREGABALIN 75 MG CAP PO SCH (20:47)
[2017-05-16] VITALS (12 sets, daily range): BP systolic 133–156; BP diastolic 60–72; PULSE 61–91; RESP 12–22; TEMP 98.2–101.3; O2SAT 94–97
[2017-05-16] MEDS: HYDROmorphone HCL PCA 6 MG/30 ML IV SCH ×4 (01:30→22:31)
[2017-05-16] MEDS: NS + KCL 20 MEQ INJ 1,000 ML IV SCH (01:31)
[2017-05-16] MEDS: CARISOPRODOL 350 MG TAB PO PRN (04:39)
[2017-05-16] MEDS: MORPHINE SULFATE 4 MG/ML INJ IV PUSH PRN ×4 (04:39→21:50)
[2017-05-16] MEDS: PCA - TOTAL MG DILAUDID DELIVERED PER SHIFT SCH ×3 (05:49→22:03)
[2017-05-16] MEDS: PANTOPRAZOLE SODIUM 40 MG VIAL IVP SCH (08:31)
[2017-05-16] MEDS: SODIUM CHLORIDE 0.9% FLUSH 5 ML FLUSH IVF SCH ×2 (08:31→21:00)
[2017-05-16] MEDS: POTASSIUM CHLORIDE 10 MEQ CAP PO SCH ×2 (08:31→21:46)
[2017-05-16] MEDS: guaiFENesin E.R. 600 MG TAB PO SCH ×2 (08:31→21:45)
[2017-05-16] MEDS: PREGABALIN 75 MG CAP PO SCH ×2 (08:31→21:46)
[2017-05-16] MEDS: SERTRALINE HCL 50 MG TAB PO SCH (08:31)
[2017-05-16] MEDS: cloNIDine HCL 0.1 MG TAB PO SCH (08:31)
[2017-05-16] MEDS ORDERED: cloNIDine HCL 0.1 MG TAB PO PRN (08:45)
--- NOTE | 2017-05-16 08:53 | HHI.PR ---
Subjective Remarks Denies and CP or SOB. Dilaudid PICK REMOVER pump pain is not well controlled and patient is crying out at times. Objective Vital Signs Date Time Temp Pulse Resp B/P (MAP) Pulse Ox O2 Delivery O2 Flow Rate FiO2 05/16/17 06:48 18 05/16/17 06:18 99.1 61 18 156/67 (96) 96 05/16/17 05:49 20 05/16/17 01:51 98.2 83 18 133/61 (85) 96 05/16/17 01:30 18 05/15/17 22:00 18 05/15/17 21:52 92 05/15/17 21:50 98.0 89 16 157/71 (99) 91 05/15/17 21:49 18 05/15/17 18:00 83 05/15/17 17:26 18 05/15/17 16:00 99.6 84 16 135/60 (85) 93 05/15/17 14:00 16 05/15/17 14:00 16 05/15/17 12:31 16 05/15/17 12:00 98.6 81 16 155/78 (103) 97 05/15/17 11:46 82 05/15/17 09:41 17 05/15/17 09:27 92 21 I/O 05/15/17 05/15/17 05/15/17 05/16/17 05/16/17 05/16/17 07:00 15:00 23:00 07:00 15:00 23:00 Intake Total 360 ml 176 ml 343.7 ml Balance 360 ml 176 ml 343.7 ml Intake Oral 360 ml IV Total 171 ml 343.7 ml Other 5 ml # Voids 3 3 # Bowel Movements 0 Result Diagram: 05/15/17 1745 05/15/17 1745 Procedures S/P L4-L5 laminectomy on 05/10/17 Objective Remarks GENERAL: Alert and oriented. SKIN: Warm and dry. Dressing intact on lower back. HEAD: Normocephalic. EYES: No scleral icterus. No injection or drainage. NECK: Supple, trachea midline. No JVD or lymphadenopathy. CARDIOVASCULAR: Regular rate and rhythm without murmurs, gallops, or rubs. RESPIRATORY: Breath sounds equal bilaterally. No accessory muscle use. GASTROINTESTINAL: Abdomen soft, non-tender, nondistended. MUSCULOSKELETAL: No cyanosis, or edema. BACK: Nontender without obvious deformity. No CVA tenderness. Medications and IVs Current Medications Medications (Trade) Dose Ordered Sig/Misael Route Start Time Stop Time Status Last Admin (Zofran Inj) 4 mg Q6H PRN IV 05/07/17 23:45 (Tylenol) 650 mg Q4H PRN PO 05/07/17 23:45 05/14/17 10:52 (Tylenol Supp) 650 mg Q4H PRN RECTAL 05/07/17 23:45 (Zoloft) 25 mg DAILY PO 05/08/17 09:00 05/15/17 09:43 (Pravachol) 10 mg HS PO 05/08/17 21:00 05/15/17 20:47 (Pill Splitter) 1 ea UNSCH PRN OTHER 05/08/17 00:15 (Duoneb Neb) 1 ampule Q6HR NEB PRN NEB 05/08/17 06:30 (Catapres) 0.1 mg Q12HR PO 05/08/17 13:00 05/15/17 20:47 (Mucinex Er) 600 mg BID PO 05/09/17 21:00 05/15/17 20:47 Cefazolin Sodium/ Dextrose 50 ml @ 150 mls/hr KEYMODULE ASSEMBLY SUPERVISOR IV 05/09/17 18:00 05/10/17 11:03 Vancomycin HCl 1000 mg/Sodium Chloride 250 ml @ 250 mls/hr [employer] ASSEMBLY SUPERVISOR IV 05/09/17 18:00 05/10/17 11:04 Potassium Chloride/Sodium Chloride 1,000 ml @ 42 mls/hr [id number] IV 05/10/17 13:00 05/16/17 01:31 (NS Flush) 2 ml UNSCH PRN IVF 05/10/17 11:45 (NS Flush) 2 ml BID IVF 05/10/17 21:00 05/15/17 09:00 (Protonix Inj) 40 mg DAILY IVP 05/11/17 09:00 05/15/17 09:51 (Morphine Inj) 2 mg Q2H PRN IV PUSH 05/10/17 13:00 05/16/17 04:39 (Morphine Inj) 4 mg Q2H PRN IV PUSH 05/10/17 13:00 05/15/17 20:52 (Tylenol) 650 mg Q4H PRN PO 05/10/17 13:00 (Narcan Inj) 0.4 mg UNSCH PRN IV 05/10/17 11:45 (Benadryl Inj) 25 mg Q6H PRN IV 05/10/17 13:00 (Dilaudid PICK REMOVER Inj) 6 mg UNSCH IV 05/10/17 11:45 05/16/17 06:48 PICK REMOVER Dosage Infused (Pha) 1 Q8HR .XX 05/10/17 14:00 05/16/17 05:49 (Milk Of Magnesia Liq) 30 ml Q12H PRN PO 05/11/17 06:45 (Senokot) 17.2 mg Q12H PRN PO 05/11/17 06:45 (Dulcolax Supp) 10 mg DAILY PRN RECTAL 05/11/17 06:45 (Lactulose Liq) 30 ml DAILY PRN PO 05/11/17 06:45 05/15/17 09:41 (Pauly-Colace) 2 tab DAILY PRN PO 05/11/17 06:45 05/15/17 09:42 (Lovenox Inj) 40 mg Q24H SQ 05/11/17 14:00 05/15/17 13:39 (KCl) 10 meq BID PO 05/13/17 21:00 05/15/17 20:47 (Soma) 350 mg Q8H PRN PO 05/14/17 11:15 05/16/17 04:39 (Catapres-Tts 0.1mg Patch.7d) 1 patch Q7D T-DERMAL 05/15/17 20:00 05/15/17 20:46 (Lyrica) 75 mg Q12HR PO 05/15/17 21:00 05/15/17 20:47 Assessment and Plan Problem List: (1) Status post lumbar laminectomy ICD Codes: Z98.890 - Other specified postprocedural states (2) Back pain ICD Codes: M54.9 - Dorsalgia, unspecified (3) Depression ICD Codes: F32.9 - Major depressive disorder, single episode, unspecified (4) Tobacco abuse ICD Codes: Z72.0 - Tobacco use (5) COPD (chronic obstructive pulmonary disease) with acute bronchitis ICD Codes: J44.0 - Chronic obstructive pulmonary disease with acute lower respiratory infection (6) Abdominal pain ICD Codes: R10.9 - Unspecified abdominal pain Assessment and Plan 05/08/17 Abdominal pain- GI consulted Presented to ED with abdominal pain for 1 day. Nausea and vomiting reported. The pain was so intense that she was awaken from sleep. She was not able to even stand initially and crawled to bathroom. Abdomen only mildly tender on palpation no guarding present. Pain spasmatic radiating to back. Has morphine for pain. CT of abdomen with no acute abnormality found. Small hiatal hernia. On IV Protonix and IVF's. Zofran PRN Back pain: Patient with pain radiating to back. Is spasmodic in nature. No fall reported. Will order muscle relaxer and imaging. COPD with acute bronchitis- Lung sounds are rhonchi and WBC elevated at 14.3 will start Azithromycin and breathing treatments. Depression - continue zoloft. Reported that her mother on April 10 and she has been very depressed. HLD- continue statin DVT and GI prophylaxis ordered. 05/09/17 Abdominal pain- GI consulted and cleared. Will need to reconsult for further or continued problems. Presented to ED with abdominal pain for 1 day. Nausea and vomiting reported. The pain was so intense that she was awaken from sleep. She was not able to even stand initially and crawled to bathroom. Abdomen non tender on palpation no guarding present. Pain spasmatic radiating to back. Has morphine for pain. CT of abdomen with no acute abnormality found. Small hiatal hernia. On IV Protonix changed to PO. Zofran PRN Back pain: Patient with pain radiating to back. Is spasmodic in nature. No fall reported. On muscle relaxer and IV morphine. Imaging with lumbar spinal stenosis. Neuro checks in a serial fashion. Nonoperative treatment with analgesics versus pain management. A surgical decompression will be offered as a last resort only per Neurosurgeon note. Discussed with Dr. Cowart interventional radiology consulted for epidural steroid injection. Fentanyl patch increased per Dr. Cowart. Gaudencio hold PT today. COPD with acute bronchitis- Lung sounds are rhonchi on Azithromycin and breathing treatments. Mucinex added. Depression - continue zoloft. Reported that her mother on April 10 and she has been very depressed. HLD- continue statin 05/10/17 Abdominal pain- Resolved Back pain: Patient with pain radiating to back. Is spasmodic in nature. No fall reported. On muscle relaxer and IV morphine. Imaging with lumbar spinal stenosis. Neuro checks in a serial fashion. Nonoperative treatment with analgesics versus pain management. A surgical decompression will be offered as a last resort only per Neurosurgeon note. Discussed with Dr. Cowart interventional radiology consulted for epidural steroid injection. Fentanyl patch increased per Dr. Cowart. Plan for laminectomy today. Hyponatremia: NA 132 this AM. Will continue to monitor and recheck in AM COPD with acute bronchitis- Azithromycin and breathing treatments. Mucinex added. Chest Xray with no acute findings. Lung sounds improved Depression - continue zoloft. HLD- continue statin 05/11/17 S/P L4-L5 laminectomy: POD #1. Dressing intact. GULSHAN drain with 20 ml of serous drainage. Pain well controlled on Dilaudid PICK REMOVER will continue muscle relaxer as need. Has started PT already. Will need to assess for discharge needs with progress with PT. Hyponatremia: Labs pending. Will monitor. COPD with acute bronchitis- Antibiotics, breathing treatments and on mucinex. Chest Xray with no acute findings. Depression - continue zoloft. In good spirits this morning HLD- continue statin Abdominal pain- Resolved GI prophylaxis and SCD Labs pending this am 05/15/17 S/P L4-L5 laminectomy:. Dressing intact. Pain continues to be a issue on Dilaudid PICK REMOVER and SOMA. Not moving well. Hyponatremia: Labs pending. Will monitor. COPD with acute bronchitis- Antibiotics completed, breathing treatments PRN. Chest Xray with no acute findings. Depression - continue zoloft. HLD- continue statin Labs ordered and pending for today On GI and DVT prophylaxis. 05/16/17 S/P L4-L5 laminectomy:. Dressing intact. Pain continues to be a issue on Dilaudid PICK REMOVER, morphine PRN, and SOMA. Continues to report increased pain discussed with Dr Cowart and he will change soma to ATC to see if this will help also adding valium PRN. Reported that she walked to door yesterday. Will monitor for oversedation Hyponatremia: Na 131 this am. Will continue to monitor. COPD with acute bronchitis- Antibiotics completed, breathing treatments PRN. Chest Xray with no acute findings. Depression - continue zoloft. HLD- continue statin Hypokalemia: Replacment given last night. Recheck pending. Anemia: HGB yesterday 9.8. Will monitor and add iron replacement. Labs ordered and pending for today On GI and DVT prophylaxis. Discharge planning to [facility] I and the PROFESSIONAL NURSING TUTOR have both examined this patient and reviewed this note and I agree with these findings and plan of care. Hawa Reilly. PROFESSIONAL NURSING TUTOR May 16, 2017 08:53
[2017-05-16] MEDS ORDERED: DIAZEPAM 2 MG TAB PO PRN (09:15)
[2017-05-16 09:45] LABS: HEMATOCRIT 29.8 % (35.0-46.0); MEAN CORPUSCULAR HEMOGLOBIN 30.1 PG (27.0-34.0); MEAN CORPUSCULAR HGB CONC 33.1 % (32.0-36.0); PLATELET COUNT 329 TH/MM3 (150-450); RED BLOOD COUNT 3.27 MIL/MM3 (4.00-5.30); RED CELL DISTRIBUTION WIDTH 13.8 % (11.6-17.2); REVIEW FLAG FINAL; WHITE BLOOD COUNT 9.5 TH/MM3 (4.0-11.0)
[2017-05-16 10:04] LABS: BICARBONATE 22.3 MEQ/L (21.0-32.0); POTASSIUM 3.8 MEQ/L (3.5-5.1)
[2017-05-16] MEDS: LACTULOSE SYRUP 20 GM/30 ML CUP PO PRN (10:05)
[2017-05-16] MEDS: LISINOPRIL 10 MG TAB PO SCH (10:05)
[2017-05-16] MEDS: fentaNYL 25 MCG/HR PATCH T-DERMAL SCH (10:06)
[2017-05-16] MEDS: CARISOPRODOL 350 MG TAB PO SCH ×2 (10:06→17:07)
[2017-05-16] MEDS: ENOXAPARIN SODIUM 40 MG/0.4 ML SYRINGE SQ SCH (14:05)
--- NOTE | 2017-05-16 16:16 | HHI.NSPN ---
(Tiara Walsh) Note Status Status: Progress Note (Tiara Walsh) Interval History Interval History This is a 66 year old female with history of COPD, depression, and hyperlipidemia, who presented to [place] [facility] with intractable back pain, hip/leg pain, and abdominal pain. Her pain was very severe, woke her up in the morning. She has chrnic intractable pain, but she denies anything as severe as this in the past. She denies any history of abdominal surgeries. Her pain was so severe that she had nausea and vomiting. Patient states she's tried taking her Tylenol with Codeine for this along with aspirin with no improvement in her symptoms. She denies any fevers, recent illness or falls. Denies any chest pain or shortness of breath. Denies any loss or change in bladder. She has severe back pain with muscle spasms. The pain radiated to bothy lower extremities, but it is much worse on the right than the left. CT of the abdomen was negative. A division superintendent was consulted and they found no intra-abdominal conditions, and the diagnosis as having referred pain from her back. Tried conservative treatment in the past with analgesics anti-inflammatories and extensive physical therapy. She has also undergone multiple epidural steroid injections with only mild temporary relief an MRI of the lumbar spine show significant loss of the space height at L4 5 with disc protrusion and neural impingement. Neurosurgical consultation was requested 05.09. She remains in severe pain, entered in her L4-5 region with bilateral radiculopathy. She has been cleared by GI. She has flexion extension xrays ordered 05/11. POD #1. Radicular pain resolved. Reports incisional pain. No focal neurological deficits 05/14. Pain is better controled. reports constipation 05/15 doing ok, continues to reports lumbar pain 05/16: feeling better today but remains quite painful when she tries to move (Tiara Walsh) Labs, Micro, & Vital Signs Results Date Time Temp Pulse Resp B/P (MAP) Pulse Ox O2 Delivery O2 Flow Rate FiO2 05/16/17 15:43 20 05/16/17 14:11 22 9/6/17 14:06 22 05/16/17 12:00 98.8 78 20 156/70 (98) 94 05/16/17 10:28 83 05/16/17 08:00 98.3 86 20 144/72 (96) 97 05/16/17 06:48 18 05/16/17 06:18 99.1 61 18 156/67 (96) 96 05/16/17 05:49 20 05/16/17 01:51 98.2 83 18 133/61 (85) 96 05/16/17 01:30 18 05/15/17 22:00 18 05/15/17 21:52 92 05/15/17 21:50 98.0 89 16 157/71 (99) 91 05/15/17 21:49 18 05/15/17 18:00 83 05/15/17 17:26 18 Constitutional Vital Signs Date Time Temp Pulse Resp B/P (MAP) Pulse Ox O2 Delivery O2 Flow Rate FiO2 05/16/17 15:43 20 05/16/17 14:11 22 05/16/17 14:06 22 05/16/17 12:00 98.8 78 20 156/70 (98) 94 05/16/17 10:28 83 05/16/17 08:00 98.3 86 20 144/72 (96) 97 05/16/17 06:48 18 05/16/17 06:18 99.1 61 18 156/67 (96) 96 05/16/17 05:49 20 05/16/17 01:51 98.2 83 18 133/61 (85) 96 05/16/17 01:30 18 05/15/17 22:00 18 05/15/17 21:52 92 05/15/17 21:50 98.0 89 16 157/71 (99) 91 05/15/17 21:49 18 05/15/17 18:00 83 05/15/17 17:26 18 (Tiara Walsh) Physical Exam Awake and alert Feeding herself breakfast Dressing is dry, no drainage Sensation intact by touch throughout the lower extremities Strength normal major flexion and extension groups in the lower extremities No significant extremity edema or cyanosis (Tiara Walsh) Medications Current Medications Current Medications Medications (Trade) Dose Ordered Sig/Misael Route PRN Reason Start Time Stop Time Status Last Admin Dose Admin Ondansetron HCl (Zofran Inj) 4 mg Q6H PRN IV NAUSEA OR VOMITING 05/07/17 23:45 Acetaminophen (Tylenol) 650 mg Q4H PRN PO Temp>101F, Headache 05/07/17 23:45 05/14/17 10:52 Acetaminophen (Tylenol Supp) 650 mg Q4H PRN RECTAL Temp>101F, Headache 05/07/17 23:45 Sertraline HCl (Zoloft) 25 mg DAILY PO 05/08/17 09:00 05/16/17 08:31 Pravastatin Sodium (Pravachol) 10 mg HS PO 05/08/17 21:00 05/15/17 20:47 Miscellaneous (Pill Splitter) 1 ea UNSCH PRN OTHER SEE LABEL COMMENTS 05/08/17 00:15 Albuterol/ Ipratropium (Duoneb Neb) 1 ampule Q6HR NEB PRN NEB SHORTNESS OF BREATH 05/08/17 06:30 Guaifenesin (Mucinex Er) 600 mg BID PO 05/09/17 21:00 05/16/17 08:31 Cefazolin Sodium/ Dextrose 50 ml @ 150 mls/hr SALES/MARKETING IV 05/09/17 18:00 05/10/17 11:03 Vancomycin HCl 1000 mg/Sodium Chloride 250 ml @ 250 mls/hr SALES/MARKETING IV 05/09/17 18:00 05/10/17 11:04 Potassium Chloride/Sodium Chloride 1,000 ml @ 42 mls/hr [id number] IV 05/10/17 13:00 05/16/17 01:31 IV Flush (NS Flush) 2 ml UNSCH PRN IVF FLUSH AFTER USING IV ACCESS 05/10/17 11:45 IV Flush (NS Flush) 2 ml BID IVF 05/10/17 21:00 05/16/17 08:31 Pantoprazole Sodium (Protonix Inj) 40 mg DAILY IVP 05/11/17 09:00 05/16/17 08:31 Morphine Sulfate (Morphine Inj) 2 mg Q2H PRN IV PUSH PAIN SCALE 1 TO 6 05/10/17 13:00 05/16/17 04:39 Morphine Sulfate (Morphine Inj) 4 mg Q2H PRN IV PUSH PAIN SCALE 7 TO 10 05/10/17 13:00 05/16/17 14:05 Acetaminophen (Tylenol) 650 mg Q4H PRN PO TEMPERATURE > 101.5 F 05/10/17 13:00 Naloxone HCl (Narcan Inj) 0.4 mg UNSCH PRN IV RESPIRATORY RATE LESS THAN 10 05/10/17 11:45 Diphenhydramine HCl (Benadryl Inj) 25 mg Q6H PRN IV ITCHING 05/10/17 13:00 Hydromorphone HCl (Dilaudid OFFICE ADMINISTRATION Inj) 6 mg UNSCH IV 05/10/17 11:45 05/16/17 15:43 OFFICE ADMINISTRATION Dosage Infused (Pha) 1 Q8HR .XX 05/10/17 14:00 05/16/17 14:06 Magnesium Hydroxide (Milk Of Magnesia Liq) 30 ml Q12H PRN PO MILD - MODERATE CONSTIPATION 05/11/17 06:45 Sennosides (Senokot) 17.2 mg Q12H PRN PO MODERATE - SEVERE CONSTIPATION 05/11/17 06:45 Bisacodyl (Dulcolax Supp) 10 mg DAILY PRN RECTAL SEVERE CONSITIPATION 05/11/17 06:45 Lactulose (Lactulose Liq) 30 ml DAILY PRN PO SEVERE CONSITIPATION 05/11/17 06:45 05/16/17 10:05 Senna/Docusate Sodium (Pauly-Colace) 2 tab DAILY PRN PO constipation 05/11/17 06:45 05/15/17 09:42 Enoxaparin Sodium (Lovenox Inj) 40 mg Q24H SQ 05/11/17 14:00 05/16/17 14:05 Potassium Chloride (KCl) 10 meq BID PO 05/13/17 21:00 05/16/17 08:31 Clonidine (Catapres-Tts 0.1mg Patch.7d) 1 patch Q7D T-DERMAL 05/15/17 20:00 05/15/17 20:46 Pregabalin (Lyrica) 75 mg Q12HR PO 05/15/17 21:00 05/16/17 08:31 Clonidine (Catapres) 0.1 mg Q6H PRN PO SBP>180, DBP>100, HR>65 05/16/17 08:45 Lisinopril (Prinivil) 10 mg DAILY PO 05/16/17 09:00 05/16/17 10:05 Diazepam (Valium) 2 mg Q12H PRN PO anxiety and muscle pain 05/16/17 09:15 Carisoprodol (Soma) 350 mg Q8H PO 05/16/17 10:00 05/16/17 10:06 Fentanyl (Duragesic 25 Mcg Patch.72 Hr) 1 patch Q3D T-DERMAL 05/16/17 09:15 05/16/17 10:06 Miscellaneous Information 1 Q3D T-DERMAL 05/19/17 09:45 (Tiara Walsh) Medical Decision Making MDM Remarks 66 y/o female s/p L4-5 laminectomy, interbody arthrodhesis using PEEK cage and autologous bone graft, L4-5 instrumental fixation using transpedicular screws and rods, L4- 5 posterolateral fusion using autologous bone graft and rods. Microsurgical dissection for severe lumbar spondylosis Stable neurologic exam postoperatively. (Tiara Walsh) Plan Plan Remarks cont physical Therapy cont rehab efforts start weaning off OFFICE ADMINISTRATION, cont morphine prn (Tiara Walsh) Attending Statement The exam, history, and the medical decision-making described in the above note were completed with the assistance of the mid-level provider. I reviewed and agree with the findings presented. I attest that I had a [id number] encounter with the patient on the same day, and personally performed and documented my assessment and findings in the medical record. (Real Arnold MD) Tiara Walsh May 16, 2017 16:16 Real Arnold MD May 27, 2017 22:02
[2017-05-16] MEDS: DOCUSATE SODIUM 50 MG/SENNA 8.6 MG TAB PO SCH (20:30)
[2017-05-16] MEDS: PRAVASTATIN SOD 10 MG TAB PO SCH (21:46)
[2017-05-17] VITALS (11 sets, daily range): BP systolic 109–143; BP diastolic 52–86; PULSE 72–104; RESP 16–20; TEMP 98–99.8; O2SAT 93–96
[2017-05-17] MEDS: CARISOPRODOL 350 MG TAB PO SCH ×3 (01:38→17:53)
[2017-05-17] MEDS: NS + KCL 20 MEQ INJ 1,000 ML IV SCH ×3 (01:38→23:01)
[2017-05-17] MEDS: HYDROmorphone HCL PCA 6 MG/30 ML IV SCH (05:48)
[2017-05-17] MEDS: PCA - TOTAL MG DILAUDID DELIVERED PER SHIFT SCH ×3 (05:52→22:00)
[2017-05-17 07:25] LABS: HEMATOCRIT 29.2 % (35.0-46.0); MEAN CORPUSCULAR HEMOGLOBIN 30.8 PG (27.0-34.0); MEAN CORPUSCULAR HGB CONC 33.8 % (32.0-36.0); PLATELET COUNT 354 TH/MM3 (150-450); RED BLOOD COUNT 3.21 MIL/MM3 (4.00-5.30); RED CELL DISTRIBUTION WIDTH 13.7 % (11.6-17.2); REVIEW FLAG FINAL; WHITE BLOOD COUNT 12.1 TH/MM3 (4.0-11.0)
[2017-05-17] MEDS ORDERED: SOD PHOSPHATE/SOD BIPHOSPHATE (ADULT) ENEMA 133ML RECTAL ONE (07:45)
[2017-05-17 07:46] LABS: BICARBONATE 24.4 MEQ/L (21.0-32.0); POTASSIUM 3.6 MEQ/L (3.5-5.1)
[2017-05-17] MEDS: POLYETHYLENE GLYCOL 17 GM PKG PO SCH (08:55)
[2017-05-17] MEDS: MEGESTROL ACETATE SUSP 400 MG/10 ML CUP PO SCH (08:55)
[2017-05-17] MEDS: LISINOPRIL 10 MG TAB PO SCH (08:56)
[2017-05-17] MEDS: SERTRALINE HCL 50 MG TAB PO SCH (08:56)
[2017-05-17] MEDS: guaiFENesin E.R. 600 MG TAB PO SCH ×2 (08:56→21:17)
[2017-05-17] MEDS: POTASSIUM CHLORIDE 10 MEQ CAP PO SCH ×2 (08:56→21:18)
[2017-05-17] MEDS: PREGABALIN 75 MG CAP PO SCH ×2 (08:56→21:17)
[2017-05-17] MEDS: MORPHINE SULFATE 4 MG/ML INJ IV PUSH PRN ×4 (08:57→21:17)
[2017-05-17] MEDS: PANTOPRAZOLE SODIUM 40 MG VIAL IVP SCH (08:57)
[2017-05-17] MEDS: DOCUSATE SODIUM 50 MG/SENNA 8.6 MG TAB PO SCH (08:57)
[2017-05-17] MEDS: SODIUM CHLORIDE 0.9% FLUSH 5 ML FLUSH IVF SCH ×2 (08:57→21:00)
--- NOTE | 2017-05-17 11:21 | HHI.PR ---
Subjective Remarks Denies and CP or SOB. Patient reports pain has been better controlled since changes in medication. Objective Vital Signs Date Time Temp Pulse Resp B/P (MAP) Pulse Ox O2 Delivery O2 Flow Rate FiO2 05/17/17 10:34 91 05/17/17 09:42 95 21 05/17/17 08:00 99.6 81 18 109/52 (71) 95 05/17/17 05:59 98.0 89 16 114/54 (74) 93 05/17/17 05:52 16 05/17/17 05:50 16 05/17/17 05:48 16 05/17/17 00:52 98.1 104 18 133/86 (102) 96 05/16/17 22:31 12 05/16/17 22:10 99.6 05/16/17 22:03 12 05/16/17 22:00 12 05/16/17 21:35 101.3 87 16 134/60 (84) 95 05/16/17 21:29 95 21 05/16/17 20:00 90 05/16/17 18:47 98.5 91 20 145/67 (93) 95 05/16/17 15:43 20 05/16/17 14:11 22 05/16/17 14:06 22 05/16/17 12:00 98.8 78 20 156/70 (98) 94 I/O 05/16/17 05/16/17 05/16/17 05/17/17 05/17/17 05/17/17 07:00 15:00 23:00 07:00 15:00 23:00 Intake Total 343.7 ml 360 ml 1011.5 ml Output Total 400 ml 100 ml Balance 343.7 ml -40 ml 911.5 ml Intake Oral 360 ml IV Total 343.7 ml 1011.5 ml Output Urine Total 400 ml 100 ml # Voids 3 3 3 # Bowel Movements 0 0 Result Diagram: 05/17/17 0632 05/17/17 0632 Procedures S/P L4-L5 laminectomy on 05/10/17 Objective Remarks GENERAL: Alert and oriented. SKIN: Warm and dry. Dressing intact on lower back. HEAD: Normocephalic. EYES: No scleral icterus. No injection or drainage. NECK: Supple, trachea midline. No JVD or lymphadenopathy. CARDIOVASCULAR: Regular rate and rhythm without murmurs, gallops, or rubs. RESPIRATORY: Breath sounds equal bilaterally. No accessory muscle use. GASTROINTESTINAL: Abdomen soft, non-tender, nondistended. MUSCULOSKELETAL: No cyanosis, or edema. BACK: Nontender without obvious deformity. No CVA tenderness. Medications and IVs Current Medications Medications (Trade) Dose Ordered Sig/Misael Route Start Time Stop Time Status Last Admin (Zofran Inj) 4 mg Q6H PRN IV 05/07/17 23:45 (Tylenol) 650 mg Q4H PRN PO 05/07/17 23:45 05/14/17 10:52 (Tylenol Supp) 650 mg Q4H PRN RECTAL 05/07/17 23:45 (Zoloft) 25 mg DAILY PO 05/08/17 09:00 05/17/17 08:56 (Pravachol) 10 mg HS PO 05/08/17 21:00 05/16/17 21:46 (Pill Splitter) 1 ea UNSCH PRN OTHER 05/08/17 00:15 (Duoneb Neb) 1 ampule Q6HR NEB PRN NEB 05/08/17 06:30 (Mucinex Er) 600 mg BID PO 05/09/17 21:00 05/17/17 08:56 Cefazolin Sodium/ Dextrose 50 ml @ 150 mls/hr TRACTOR DRIVER IV 05/09/17 18:00 05/10/17 11:03 Vancomycin HCl 1000 mg/Sodium Chloride 250 ml @ 250 mls/hr TRACTOR DRIVER IV 05/09/17 18:00 05/10/17 11:04 Potassium Chloride/Sodium Chloride 1,000 ml @ 42 mls/hr [id number] IV 05/10/17 13:00 05/17/17 01:38 (NS Flush) 2 ml UNSCH PRN IVF 05/10/17 11:45 (NS Flush) 2 ml BID IVF 05/10/17 21:00 05/16/17 21:00 (Protonix Inj) 40 mg DAILY IVP 05/11/17 09:00 05/17/17 08:57 (Morphine Inj) 2 mg Q2H PRN IV PUSH 05/10/17 13:00 05/16/17 21:50 (Morphine Inj) 4 mg Q2H PRN IV PUSH 05/10/17 13:00 05/17/17 08:57 (Tylenol) 650 mg Q4H PRN PO 05/10/17 13:00 (Narcan Inj) 0.4 mg UNSCH PRN IV 05/10/17 11:45 (Benadryl Inj) 25 mg Q6H PRN IV 05/10/17 13:00 (Dilaudid BASKETBALL REFEREE Inj) 6 mg UNSCH IV 05/10/17 11:45 05/17/17 05:48 BASKETBALL REFEREE Dosage Infused (Pha) 1 Q8HR .XX 05/10/17 14:00 05/17/17 05:52 (Milk Of Magnesia Liq) 30 ml Q12H PRN PO 05/11/17 06:45 05/16/17 17:46 (Senokot) 17.2 mg Q12H PRN PO 05/11/17 06:45 05/16/17 17:46 (Dulcolax Supp) 10 mg DAILY PRN RECTAL 05/11/17 06:45 (Lactulose Liq) 30 ml DAILY PRN PO 05/11/17 06:45 05/16/17 10:05 (Lovenox Inj) 40 mg Q24H SQ 05/11/17 14:00 05/16/17 14:05 (KCl) 10 meq BID PO 05/13/17 21:00 05/17/17 08:56 (Catapres-Tts 0.1mg Patch.7d) 1 patch Q7D T-DERMAL 05/15/17 20:00 05/15/17 20:46 (Lyrica) 75 mg Q12HR PO 05/15/17 21:00 05/17/17 08:56 (Catapres) 0.1 mg Q6H PRN PO 05/16/17 08:45 (Prinivil) 10 mg DAILY PO 05/16/17 09:00 05/17/17 08:56 (Valium) 2 mg Q12H PRN PO 05/16/17 09:15 (Soma) 350 mg Q8H PO 05/16/17 10:00 05/17/17 08:56 (Duragesic 25 Mcg Patch.72 Hr) 1 patch Q3D T-DERMAL 05/16/17 09:15 05/16/17 10:06 Miscellaneous Information 1 Q3D T-DERMAL 05/19/17 09:45 (Pauly-Colace) 2 tab DAILY PO 05/16/17 20:30 05/17/17 08:57 (Miralax) 17 gm DAILY PO 05/17/17 09:00 05/17/17 08:55 (Megace Liq) 400 mg DAILY PO 05/17/17 09:00 05/17/17 08:55 Assessment and Plan Problem List: (1) Status post lumbar laminectomy ICD Codes: Z98.890 - Other specified postprocedural states (2) Back pain ICD Codes: M54.9 - Dorsalgia, unspecified (3) Depression ICD Codes: F32.9 - Major depressive disorder, single episode, unspecified (4) Tobacco abuse ICD Codes: Z72.0 - Tobacco use (5) COPD (chronic obstructive pulmonary disease) with acute bronchitis ICD Codes: J44.0 - Chronic obstructive pulmonary disease with acute lower respiratory infection (6) Abdominal pain ICD Codes: R10.9 - Unspecified abdominal pain Assessment and Plan 05/08/17 Abdominal pain- GI consulted Presented to ED with abdominal pain for 1 day. Nausea and vomiting reported. The pain was so intense that she was awaken from sleep. She was not able to even stand initially and crawled to bathroom. Abdomen only mildly tender on palpation no guarding present. Pain spasmatic radiating to back. Has morphine for pain. CT of abdomen with no acute abnormality found. Small hiatal hernia. On IV Protonix and IVF's. Zofran PRN Back pain: Patient with pain radiating to back. Is spasmodic in nature. No fall reported. Will order muscle relaxer and imaging. COPD with acute bronchitis- Lung sounds are rhonchi and WBC elevated at 14.3 will start Azithromycin and breathing treatments. Depression - continue zoloft. Reported that her mother on April 10 and she has been very depressed. HLD- continue statin DVT and GI prophylaxis ordered. 05/09/17 Abdominal pain- GI consulted and cleared. Will need to reconsult for further or continued problems. Presented to ED with abdominal pain for 1 day. Nausea and vomiting reported. The pain was so intense that she was awaken from sleep. She was not able to even stand initially and crawled to bathroom. Abdomen non tender on palpation no guarding present. Pain spasmatic radiating to back. Has morphine for pain. CT of abdomen with no acute abnormality found. Small hiatal hernia. On IV Protonix changed to PO. Zofran PRN Back pain: Patient with pain radiating to back. Is spasmodic in nature. No fall reported. On muscle relaxer and IV morphine. Imaging with lumbar spinal stenosis. Neuro checks in a serial fashion. Nonoperative treatment with analgesics versus pain management. A surgical decompression will be offered as a last resort only per Neurosurgeon note. Discussed with Dr. Cowart interventional radiology consulted for epidural steroid injection. Fentanyl patch increased per Dr. Cowart. Gaudencio hold PT today. COPD with acute bronchitis- Lung sounds are rhonchi on Azithromycin and breathing treatments. Mucinex added. Depression - continue zoloft. Reported that her mother on April 10 and she has been very depressed. HLD- continue statin 05/10/17 Abdominal pain- Resolved Back pain: Patient with pain radiating to back. Is spasmodic in nature. No fall reported. On muscle relaxer and IV morphine. Imaging with lumbar spinal stenosis. Neuro checks in a serial fashion. Nonoperative treatment with analgesics versus pain management. A surgical decompression will be offered as a last resort only per Neurosurgeon note. Discussed with Dr. Cowart interventional radiology consulted for epidural steroid injection. Fentanyl patch increased per Dr. Cowart. Plan for laminectomy today. Hyponatremia: NA 132 this AM. Will continue to monitor and recheck in AM COPD with acute bronchitis- Azithromycin and breathing treatments. Mucinex added. Chest Xray with no acute findings. Lung sounds improved Depression - continue zoloft. HLD- continue statin 05/11/17 S/P L4-L5 laminectomy: POD #1. Dressing intact. GULSHAN drain with 20 ml of serous drainage. Pain well controlled on Dilaudid BASKETBALL REFEREE will continue muscle relaxer as need. Has started PT already. Will need to assess for discharge needs with progress with PT. Hyponatremia: Labs pending. Will monitor. COPD with acute bronchitis- Antibiotics, breathing treatments and on mucinex. Chest Xray with no acute findings. Depression - continue zoloft. In good spirits this morning HLD- continue statin Abdominal pain- Resolved GI prophylaxis and SCD Labs pending this am 05/15/17 S/P L4-L5 laminectomy:. Dressing intact. Pain continues to be a issue on Dilaudid BASKETBALL REFEREE and SOMA. Not moving well. Hyponatremia: Labs pending. Will monitor. COPD with acute bronchitis- Antibiotics completed, breathing treatments PRN. Chest Xray with no acute findings. Depression - continue zoloft. HLD- continue statin Labs ordered and pending for today On GI and DVT prophylaxis. 05/16/17 S/P L4-L5 laminectomy:. Dressing intact. Pain continues to be a issue on Dilaudid BASKETBALL REFEREE, morphine PRN, and SOMA. Continues to report increased pain discussed with Dr Cowart and he will change soma to ATC to see if this will help also adding valium PRN. Reported that she walked to door yesterday. Will monitor for oversedation Hyponatremia: Na 131 this am. Will continue to monitor. COPD with acute bronchitis- Antibiotics completed, breathing treatments PRN. Chest Xray with no acute findings. Depression - continue zoloft. HLD- continue statin Hypokalemia: Replacment given last night. Recheck pending. Anemia: HGB yesterday 9.8. Will monitor and add iron replacement. Labs ordered and pending for today On GI and DVT prophylaxis. Discharge planning to [facility] 05/17/17 S/P L4-L5 laminectomy:. Dressing intact. On Dilaudid BASKETBALL REFEREE, morphine PRN, Fentanyl, and SOMA. Reports that her pain relief has improved. Will discontinue dilaudid BASKETBALL REFEREE and monitor. Hyponatremia: Na 128 this am. IVF increased and Sodium tablets TID added recheck in AM COPD with acute bronchitis- Antibiotics completed, breathing treatments PRN. Chest Xray with no acute findings. Depression - continue zoloft. In better spirits. HLD- continue statin Hypokalemia: Resolved. K 3.6 Anemia: HGB stable at 9.9. Will monitor on iron replacement. Constipation: Miralax and senna added daily yesterday. Fleets enema ordered for today. I and the BRAKE RIDER have both examined this patient and reviewed this note and I agree with these findings and plan of care. Hawa Reilly. BRAKE RIDER May 17, 2017 11:21
[2017-05-17] MEDS ORDERED: oxyCODONE/ACETAMINOPHEN 5 MG/325 MG TAB PO PRN (13:45)
--- NOTE | 2017-05-17 13:47 | HHI.NSPN ---
Note Status Status: Progress Note Interval History Interval History This is a 66 year old female with history of COPD, depression, and hyperlipidemia, who presented to [facility] with intractable back pain, hip/leg pain, and abdominal pain. Her pain was very severe, woke her up in the morning. She has chrnic intractable pain, but she denies anything as severe as this in the past. She denies any history of abdominal surgeries. Her pain was so severe that she had nausea and vomiting. Patient states she's tried taking her Tylenol with Codeine for this along with aspirin with no improvement in her symptoms. She denies any fevers, recent illness or falls. Denies any chest pain or shortness of breath. Denies any loss or change in bladder. She has severe back pain with muscle spasms. The pain radiated to bothy lower extremities, but it is much worse on the right than the left. CT of the abdomen was negative. A bead flipper was consulted and they found no intra-abdominal conditions, and the diagnosis as having referred pain from her back. Tried conservative treatment in the past with analgesics anti-inflammatories and extensive physical therapy. She has also undergone multiple epidural steroid injections with only mild temporary relief an MRI of the lumbar spine show significant loss of the space height at L4 5 with disc protrusion and neural impingement. Neurosurgical consultation was requested .. She remains in severe pain, entered in her L4-5 region with bilateral radiculopathy. She has been cleared by GI. She has flexion extension xrays ordered 05/11. POD #1. Radicular pain resolved. Reports incisional pain. No focal neurological deficits 05/14. Pain is better controled. reports constipation 05/15 doing ok, continues to reports lumbar pain 05/16: feeling better today but remains quite painful when she tries to move 05/17: reports pain is improving and feeling better today Labs, Micro, & Vital Signs Results Date Time Temp Pulse Resp B/P (MAP) Pulse Ox O2 Delivery O2 Flow Rate FiO2 05/17/17 12:00 99.8 95 18 120/62 (81) 93 9/7/17 10:34 91 05/17/17 09:42 95 21 05/17/17 08:00 99.6 81 18 109/52 (71) 95 05/17/17 05:59 98.0 89 16 114/54 (74) 93 05/17/17 05:52 16 05/17/17 05:50 16 05/17/17 05:48 16 05/17/17 00:52 98.1 104 18 133/86 (102) 96 05/16/17 22:31 12 05/16/17 22:10 99.6 05/16/17 22:03 12 05/16/17 22:00 12 05/16/17 21:35 101.3 87 16 134/60 (84) 95 05/16/17 21:29 95 21 05/16/17 20:00 90 05/16/17 18:47 98.5 91 20 145/67 (93) 95 05/16/17 15:43 20 05/16/17 14:11 22 05/16/17 14:06 22 05/18/17 06:59 Intake Total 11.5 ml Balance 11.5 ml Constitutional Vital Signs Date Time Temp Pulse Resp B/P (MAP) Pulse Ox O2 Delivery O2 Flow Rate FiO2 05/17/17 12:00 99.8 95 18 120/62 (81) 93 05/17/17 10:34 91 05/17/17 09:42 95 21 05/17/17 08:00 99.6 81 18 109/52 (71) 95 05/17/17 05:59 98.0 89 16 114/54 (74) 93 05/17/17 05:52 16 05/17/17 05:50 16 05/17/17 05:48 16 05/17/17 00:52 98.1 104 18 133/86 (102) 96 05/16/17 22:31 12 05/16/17 22:10 99.6 05/16/17 22:03 12 05/16/17 22:00 12 05/16/17 21:35 101.3 87 16 134/60 (84) 95 05/16/17 21:29 95 21 05/16/17 20:00 90 05/16/17 18:47 98.5 91 20 145/67 (93) 95 05/16/17 15:43 20 05/16/17 14:11 22 05/16/17 14:06 22 05/18/17 06:59 Intake Total 11.5 ml Balance 11.5 ml Review of Systems Constitutional: DENIES: Fever Eyes: DENIES: Diplopia Gastrointestinal: COMPLAINS OF: Constipation, DENIES: Nausea Musculoskeletal: COMPLAINS OF: Back pain Neurologic: DENIES: Headache, Seizures Psychiatric: DENIES: Hallucinations Physical Exam Awake and alert Appearing more comfortable today CN: pupils equal, facial motor symmetric Sensation intact by touch throughout the lower extremities Strength normal major flexion and extension groups in the lower extremities No significant extremity edema or cyanosis Cardiac exam regular without murmur Medications Current Medications Current Medications Medications (Trade) Dose Ordered Sig/Misael Route PRN Reason Start Time Stop Time Status Last Admin Dose Admin Ondansetron HCl (Zofran Inj) 4 mg Q6H PRN IV NAUSEA OR VOMITING 05/07/17 23:45 Acetaminophen (Tylenol) 650 mg Q4H PRN PO Temp>101F, Headache 05/07/17 23:45 05/14/17 10:52 Acetaminophen (Tylenol Supp) 650 mg Q4H PRN RECTAL Temp>101F, Headache 05/07/17 23:45 Sertraline HCl (Zoloft) 25 mg DAILY PO 05/08/17 09:00 05/17/17 08:56 Pravastatin Sodium (Pravachol) 10 mg HS PO 05/08/17 21:00 05/16/17 21:46 Miscellaneous (Pill Splitter) 1 ea UNSCH PRN OTHER SEE LABEL COMMENTS 05/08/17 00:15 Albuterol/ Ipratropium (Duoneb Neb) 1 ampule Q6HR NEB PRN NEB SHORTNESS OF BREATH 05/08/17 06:30 Guaifenesin (Mucinex Er) 600 mg BID PO 05/09/17 21:00 05/17/17 08:56 Cefazolin Sodium/ Dextrose 50 ml @ 150 mls/hr GLOBAL CLINICAL LEADER IV 05/09/17 18:00 05/10/17 11:03 Vancomycin HCl 1000 mg/Sodium Chloride 250 ml @ 250 mls/hr GLOBAL CLINICAL LEADER IV 05/09/17 18:00 05/10/17 11:04 Potassium Chloride/Sodium Chloride 1,000 ml @ 83 mls/hr Q12H3M IV 05/10/17 13:00 05/17/17 01:38 IV Flush (NS Flush) 2 ml UNSCH PRN IVF FLUSH AFTER USING IV ACCESS 05/10/17 11:45 IV Flush (NS Flush) 2 ml BID IVF 05/10/17 21:00 05/16/17 21:00 Pantoprazole Sodium (Protonix Inj) 40 mg DAILY IVP 05/11/17 09:00 05/17/17 08:57 Morphine Sulfate (Morphine Inj) 2 mg Q2H PRN IV PUSH PAIN SCALE 1 TO 6 05/10/17 13:00 05/16/17 21:50 Morphine Sulfate (Morphine Inj) 4 mg Q2H PRN IV PUSH PAIN SCALE 7 TO 10 05/10/17 13:00 05/17/17 08:57 Acetaminophen (Tylenol) 650 mg Q4H PRN PO TEMPERATURE > 101.5 F 05/10/17 13:00 Naloxone HCl (Narcan Inj) 0.4 mg UNSCH PRN IV RESPIRATORY RATE LESS THAN 10 05/10/17 11:45 Diphenhydramine HCl (Benadryl Inj) 25 mg Q6H PRN IV ITCHING 05/10/17 13:00 PETROLEUM [employer]ANT OPERATOR Dosage Infused (Pha) 1 Q8HR .XX 05/10/17 14:00 05/17/17 05:52 Magnesium Hydroxide (Milk Of Magnesia Liq) 30 ml Q12H PRN PO MILD - MODERATE CONSTIPATION 05/11/17 06:45 05/16/17 17:46 Sennosides (Senokot) 17.2 mg Q12H PRN PO MODERATE - SEVERE CONSTIPATION 05/11/17 06:45 05/16/17 17:46 Bisacodyl (Dulcolax Supp) 10 mg DAILY PRN RECTAL SEVERE CONSITIPATION 05/11/17 06:45 Lactulose (Lactulose Liq) 30 ml DAILY PRN PO SEVERE CONSITIPATION 05/11/17 06:45 05/16/17 10:05 Enoxaparin Sodium (Lovenox Inj) 40 mg Q24H SQ 05/11/17 14:00 05/16/17 14:05 Potassium Chloride (KCl) 10 meq BID PO 05/13/17 21:00 05/17/17 08:56 Clonidine (Catapres-Tts 0.1mg Patch.7d) 1 patch Q7D T-DERMAL 05/15/17 20:00 05/15/17 20:46 Pregabalin (Lyrica) 75 mg Q12HR PO 05/15/17 21:00 05/17/17 08:56 Clonidine (Catapres) 0.1 mg Q6H PRN PO SBP>180, DBP>100, HR>65 05/16/17 08:45 Lisinopril (Prinivil) 10 mg DAILY PO 05/16/17 09:00 05/17/17 08:56 Diazepam (Valium) 2 mg Q12H PRN PO anxiety and muscle pain 05/16/17 09:15 Carisoprodol (Soma) 350 mg Q8H PO 05/16/17 10:00 05/17/17 08:56 Fentanyl (Duragesic 25 Mcg Patch.72 Hr) 1 patch Q3D T-DERMAL 05/16/17 09:15 05/16/17 10:06 Miscellaneous Information 1 Q3D T-DERMAL 05/19/17 09:45 Senna/Docusate Sodium (Pauly-Colace) 2 tab DAILY PO 05/16/17 20:30 05/17/17 08:57 Polyethylene Glycol (Miralax) 17 gm DAILY PO 05/17/17 09:00 05/17/17 08:55 Megestrol Acetate (Megace Liq) 400 mg DAILY PO 05/17/17 09:00 05/17/17 08:55 Medical Decision Making MDM Remarks 66 y/o female s/p L4-5 laminectomy, interbody arthrodhesis using PEEK cage and autologous bone graft, L4-5 instrumental fixation using transpedicular screws and rods, L4- 5 posterolateral fusion using autologous bone graft and rods. 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
[2017-05-17] MEDS: ENOXAPARIN SODIUM 40 MG/0.4 ML SYRINGE SQ SCH (14:09)
[2017-05-17] MEDS: oxyCODONE/ACETAMINOPHEN 5 MG/325 MG TAB PO PRN ×2 (18:44→23:00)
[2017-05-17] MEDS: PRAVASTATIN SOD 10 MG TAB PO SCH (21:18)
[2017-05-18] VITALS (8 sets, daily range): BP systolic 112–146; BP diastolic 57–71; PULSE 70–83; RESP 17–18; TEMP 97.7–98.4; O2SAT 95–100
[2017-05-18] MEDS: CARISOPRODOL 350 MG TAB PO SCH ×3 (02:00→17:43)
[2017-05-18] MEDS: oxyCODONE/ACETAMINOPHEN 5 MG/325 MG TAB PO PRN ×5 (03:00→22:02)
--- NOTE | 2017-05-18 07:50 | HHI.PR ---
Subjective Remarks Complaining of increased pain this AM since MULTIMEDIA EDITOR has been discontinued Objective Vital Signs Date Time Temp Pulse Resp B/P (MAP) Pulse Ox O2 Delivery O2 Flow Rate FiO2 05/18/17 04:30 98.0 71 17 136/66 (89) 95 05/18/17 00:45 98.4 71 17 112/57 (75) 95 05/17/17 21:12 98.6 72 20 143/65 (91) 05/17/17 20:05 92 05/17/17 16:00 98.5 100 18 110/63 (79) 94 05/17/17 14:11 18 05/17/17 12:00 99.8 95 18 120/62 (81) 93 05/17/17 10:34 91 05/17/17 09:42 95 21 05/17/17 08:00 99.6 81 18 109/52 (71) 95 I/O 05/17/17 05/17/17 05/17/17 05/18/17 05/18/17 05/18/17 07:00 15:00 23:00 07:00 15:00 23:00 Intake Total 1011.5 ml 480 ml 1814 ml 850 ml Output Total 100 ml Balance 911.5 ml 480 ml 1814 ml 850 ml Intake Oral 480 ml 240 ml IV Total 1011.5 ml 1814 ml 610 ml Output Urine Total 100 ml # Voids 3 4 2 5 # Bowel Movements 0 0 2 5 Result Diagram: 05/17/17 0632 05/17/17 0632 Procedures S/P L4-L5 laminectomy on 05/10/17 Objective Remarks GENERAL: Alert and oriented. SKIN: Warm and dry. Dressing intact on lower back. HEAD: Normocephalic. EYES: No scleral icterus. No injection or drainage. NECK: Supple, trachea midline. No JVD or lymphadenopathy. CARDIOVASCULAR: Regular rate and rhythm without murmurs, gallops, or rubs. RESPIRATORY: Breath sounds equal bilaterally. No accessory muscle use. GASTROINTESTINAL: Abdomen soft, non-tender, nondistended. MUSCULOSKELETAL: No cyanosis, or edema. BACK: Nontender without obvious deformity. No CVA tenderness. Medications and IVs Current Medications Medications (Trade) Dose Ordered Sig/Misael Route Start Time Stop Time Status Last Admin (Zofran Inj) 4 mg Q6H PRN IV 05/07/17 23:45 (Tylenol) 650 mg Q4H PRN PO 05/07/17 23:45 05/14/17 10:52 (Tylenol Supp) 650 mg Q4H PRN RECTAL 05/07/17 23:45 (Zoloft) 25 mg DAILY PO 05/08/17 09:00 05/17/17 08:56 (Pravachol) 10 mg HS PO 05/08/17 21:00 05/17/17 21:18 (Pill Splitter) 1 ea UNSCH PRN OTHER 05/08/17 00:15 (Duoneb Neb) 1 ampule Q6HR NEB PRN NEB 05/08/17 06:30 (Mucinex Er) 600 mg BID PO 05/09/17 21:00 05/17/17 21:17 Cefazolin Sodium/ Dextrose 50 ml @ 150 mls/hr ANESTHESIOLOGIST ATTENDING IV 05/09/17 18:00 05/10/17 11:03 Vancomycin HCl 1000 mg/Sodium Chloride 250 ml @ 250 mls/hr ANESTHESIOLOGIST ATTENDING IV 05/09/17 18:00 05/10/17 11:04 Potassium Chloride/Sodium Chloride 1,000 ml @ 83 mls/hr Q12H3M IV 05/10/17 13:00 05/17/17 23:01 (NS Flush) 2 ml UNSCH PRN IVF 05/10/17 11:45 05/17/17 14:26 (NS Flush) 2 ml BID IVF 05/10/17 21:00 05/16/17 21:00 (Protonix Inj) 40 mg DAILY IVP 05/11/17 09:00 05/17/17 08:57 (Morphine Inj) 2 mg Q2H PRN IV PUSH 05/10/17 13:00 05/17/17 21:17 (Tylenol) 650 mg Q4H PRN PO 05/10/17 13:00 (Narcan Inj) 0.4 mg UNSCH PRN IV 05/10/17 11:45 (Benadryl Inj) 25 mg Q6H PRN IV 05/10/17 13:00 (Milk Of Magnesia Liq) 30 ml Q12H PRN PO 05/11/17 06:45 05/16/17 17:46 (Senokot) 17.2 mg Q12H PRN PO 05/11/17 06:45 05/16/17 17:46 (Dulcolax Supp) 10 mg DAILY PRN RECTAL 05/11/17 06:45 (Lactulose Liq) 30 ml DAILY PRN PO 05/11/17 06:45 05/16/17 10:05 (Lovenox Inj) 40 mg Q24H SQ 05/11/17 14:00 05/17/17 14:09 (KCl) 10 meq BID PO 05/13/17 21:00 05/17/17 21:18 (Catapres-Tts 0.1mg Patch.7d) 1 patch Q7D T-DERMAL 05/15/17 20:00 05/15/17 20:46 (Lyrica) 75 mg Q12HR PO 05/15/17 21:00 05/17/17 21:17 (Catapres) 0.1 mg Q6H PRN PO 05/16/17 08:45 (Prinivil) 10 mg DAILY PO 05/16/17 09:00 05/17/17 08:56 (Valium) 2 mg Q12H PRN PO 05/16/17 09:15 (Soma) 350 mg Q8H PO 05/16/17 10:00 05/18/17 02:00 (Duragesic 25 Mcg Patch.72 Hr) 1 patch Q3D T-DERMAL 05/16/17 09:15 05/16/17 10:06 Miscellaneous Information 1 Q3D T-DERMAL 05/19/17 09:45 (Pauly-Colace) 2 tab DAILY PO 05/16/17 20:30 05/17/17 08:57 (Miralax) 17 gm DAILY PO 05/17/17 09:00 05/17/17 08:55 (Megace Liq) 400 mg DAILY PO 05/17/17 09:00 05/17/17 08:55 (Percocet 5-325 Mg) 1 tab Q4H PRN PO 05/17/17 13:45 (Percocet 5-325 Mg) 2 tab Q4H PRN PO 05/17/17 13:45 05/18/17 06:47 Assessment and Plan Problem List: (1) Status post lumbar laminectomy ICD Codes: Z98.890 - Other specified postprocedural states (2) Back pain ICD Codes: M54.9 - Dorsalgia, unspecified (3) Depression ICD Codes: F32.9 - Major depressive disorder, single episode, unspecified (4) Tobacco abuse ICD Codes: Z72.0 - Tobacco use (5) COPD (chronic obstructive pulmonary disease) with acute bronchitis ICD Codes: J44.0 - Chronic obstructive pulmonary disease with acute lower respiratory infection (6) Abdominal pain ICD Codes: R10.9 - Unspecified abdominal pain Assessment and Plan 05/08/17 Abdominal pain- GI consulted Presented to ED with abdominal pain for 1 day. Nausea and vomiting reported. The pain was so intense that she was awaken from sleep. She was not able to even stand initially and crawled to bathroom. Abdomen only mildly tender on palpation no guarding present. Pain spasmatic radiating to back. Has morphine for pain. CT of abdomen with no acute abnormality found. Small hiatal hernia. On IV Protonix and IVF's. Zofran PRN Back pain: Patient with pain radiating to back. Is spasmodic in nature. No fall reported. Will order muscle relaxer and imaging. COPD with acute bronchitis- Lung sounds are rhonchi and WBC elevated at 14.3 will start Azithromycin and breathing treatments. Depression - continue zoloft. Reported that her mother on April 10 and she has been very depressed. HLD- continue statin DVT and GI prophylaxis ordered. 05/09/17 Abdominal pain- GI consulted and cleared. Will need to reconsult for further or continued problems. Presented to ED with abdominal pain for 1 day. Nausea and vomiting reported. The pain was so intense that she was awaken from sleep. She was not able to even stand initially and crawled to bathroom. Abdomen non tender on palpation no guarding present. Pain spasmatic radiating to back. Has morphine for pain. CT of abdomen with no acute abnormality found. Small hiatal hernia. On IV Protonix changed to PO. Zofran PRN Back pain: Patient with pain radiating to back. Is spasmodic in nature. No fall reported. On muscle relaxer and IV morphine. Imaging with lumbar spinal stenosis. Neuro checks in a serial fashion. Nonoperative treatment with analgesics versus pain management. A surgical decompression will be offered as a last resort only per Neurosurgeon note. Discussed with Dr. Cowart interventional radiology consulted for epidural steroid injection. Fentanyl patch increased per Dr. Cowart. Gaudencio hold PT today. COPD with acute bronchitis- Lung sounds are rhonchi on Azithromycin and breathing treatments. Mucinex added. Depression - continue zoloft. Reported that her mother on April 10 and she has been very depressed. HLD- continue statin 05/10/17 Abdominal pain- Resolved Back pain: Patient with pain radiating to back. Is spasmodic in nature. No fall reported. On muscle relaxer and IV morphine. Imaging with lumbar spinal stenosis. Neuro checks in a serial fashion. Nonoperative treatment with analgesics versus pain management. A surgical decompression will be offered as a last resort only per Neurosurgeon note. Discussed with Dr. Cowart interventional radiology consulted for epidural steroid injection. Fentanyl patch increased per Dr. Cowart. Plan for laminectomy today. Hyponatremia: NA 132 this AM. Will continue to monitor and recheck in AM COPD with acute bronchitis- Azithromycin and breathing treatments. Mucinex added. Chest Xray with no acute findings. Lung sounds improved Depression - continue zoloft. HLD- continue statin 05/11/17 S/P L4-L5 laminectomy: POD #1. Dressing intact. GULSHAN drain with 20 ml of serous drainage. Pain well controlled on Dilaudid MULTIMEDIA EDITOR will continue muscle relaxer as need. Has started PT already. Will need to assess for discharge needs with progress with PT. Hyponatremia: Labs pending. Will monitor. COPD with acute bronchitis- Antibiotics, breathing treatments and on mucinex. Chest Xray with no acute findings. Depression - continue zoloft. In good spirits this morning HLD- continue statin Abdominal pain- Resolved GI prophylaxis and SCD Labs pending this am 05/15/17 S/P L4-L5 laminectomy:. Dressing intact. Pain continues to be a issue on Dilaudid MULTIMEDIA EDITOR and SOMA. Not moving well. Hyponatremia: Labs pending. Will monitor. COPD with acute bronchitis- Antibiotics completed, breathing treatments PRN. Chest Xray with no acute findings. Depression - continue zoloft. HLD- continue statin Labs ordered and pending for today On GI and DVT prophylaxis. 05/16/17 S/P L4-L5 laminectomy:. Dressing intact. Pain continues to be a issue on Dilaudid MULTIMEDIA EDITOR, morphine PRN, and SOMA. Continues to report increased pain discussed with Dr Cowart and he will change soma to ATC to see if this will help also adding valium PRN. Reported that she walked to door yesterday. Will monitor for oversedation Hyponatremia: Na 131 this am. Will continue to monitor. COPD with acute bronchitis- Antibiotics completed, breathing treatments PRN. Chest Xray with no acute findings. Depression - continue zoloft. HLD- continue statin Hypokalemia: Replacment given last night. Recheck pending. Anemia: HGB yesterday 9.8. Will monitor and add iron replacement. Labs ordered and pending for today On GI and DVT prophylaxis. Discharge planning to [facility] 05/17/17 S/P L4-L5 laminectomy:. Dressing intact. On Dilaudid MULTIMEDIA EDITOR, morphine PRN, Fentanyl, and SOMA. Reports that her pain relief has improved. Will discontinue dilaudid MULTIMEDIA EDITOR and monitor. Hyponatremia: Na 128 this am. IVF increased and Sodium tablets TID added recheck in AM COPD with acute bronchitis- Antibiotics completed, breathing treatments PRN. Chest Xray with no acute findings. Depression - continue zoloft. In better spirits. HLD- continue statin Hypokalemia: Resolved. K 3.6 Anemia: HGB stable at 9.9. Will monitor on iron replacement. Constipation: Miralax and senna added daily yesterday. Fleets enema ordered for today. 05/18/17 S/P L4-L5 laminectomy on 05/11: Dilaudid MULTIMEDIA EDITOR discontinued yesterday. On Percocet , fentanyl patch and IV morphine PRN. Complaining of increased pain this AM. Hyponatremia: Na 128 yesterday. IVF increased and Sodium tablets TID added yesterday. Recheck pending. COPD with acute bronchitis- Antibiotics completed, breathing treatments PRN. Chest Xray with no acute findings. Depression - continue Zoloft. HLD- continue statin Hypokalemia: Resolved. Pending this AM Anemia: HGB stable. Will monitor on iron replacement. Constipation: Multiple BM yesterday I and the GUITAR PLAYER have both examined this patient and reviewed this note and I agree with these findings and plan of care. Hawa Reilly. GUITAR PLAYER May 18, 2017 07:50
[2017-05-18] MEDS: MORPHINE SULFATE 4 MG/ML INJ IV PUSH PRN ×3 (08:25→20:30)
[2017-05-18] MEDS: SODIUM CHLORIDE 0.9% FLUSH 5 ML FLUSH IVF SCH ×2 (08:26→20:32)
[2017-05-18] MEDS: DOCUSATE SODIUM 50 MG/SENNA 8.6 MG TAB PO SCH (09:00)
[2017-05-18] MEDS: MEGESTROL ACETATE SUSP 400 MG/10 ML CUP PO SCH (09:00)
[2017-05-18] MEDS: POLYETHYLENE GLYCOL 17 GM PKG PO SCH (09:00)
[2017-05-18] MEDS: guaiFENesin E.R. 600 MG TAB PO SCH ×2 (09:00→20:31)
[2017-05-18] MEDS: PANTOPRAZOLE SODIUM 40 MG VIAL IVP SCH (09:55)
[2017-05-18] MEDS: PREGABALIN 75 MG CAP PO SCH ×2 (09:56→20:31)
[2017-05-18] MEDS: SERTRALINE HCL 50 MG TAB PO SCH (09:56)
[2017-05-18] MEDS: LISINOPRIL 10 MG TAB PO SCH (09:57)
[2017-05-18] MEDS: POTASSIUM CHLORIDE 10 MEQ CAP PO SCH ×2 (09:57→20:31)
[2017-05-18] MEDS: NS + KCL 20 MEQ INJ 1,000 ML IV SCH ×2 (10:43→20:32)
[2017-05-18 11:16] LABS: HEMATOCRIT 28.1 % (35.0-46.0); MEAN CELL VOLUME 91.8 FL (80.0-100.0); MEAN CORPUSCULAR HEMOGLOBIN 29.8 PG (27.0-34.0); MEAN CORPUSCULAR HGB CONC 32.5 % (32.0-36.0); PLATELET COUNT 391 TH/MM3 (150-450); RED BLOOD COUNT 3.05 MIL/MM3 (4.00-5.30); RED CELL DISTRIBUTION WIDTH 14.1 % (11.6-17.2); REVIEW FLAG FINAL; WHITE BLOOD COUNT 10.7 TH/MM3 (4.0-11.0)
[2017-05-18 11:43] LABS: POTASSIUM 3.9 MEQ/L (3.5-5.1)
[2017-05-18] MEDS: ENOXAPARIN SODIUM 40 MG/0.4 ML SYRINGE SQ SCH (16:10)
[2017-05-18] MEDS: PRAVASTATIN SOD 10 MG TAB PO SCH (20:31)
[2017-05-19] VITALS (7 sets, daily range): BP systolic 123–158; BP diastolic 63–78; PULSE 74–92; RESP 18; TEMP 96.2–99.4; O2SAT 94–100
[2017-05-19] MEDS: MORPHINE SULFATE 4 MG/ML INJ IV PUSH PRN ×7 (01:01→23:41)
[2017-05-19] MEDS: NS + KCL 20 MEQ INJ 1,000 ML IV SCH ×3 (02:17→23:41)
[2017-05-19] MEDS: CARISOPRODOL 350 MG TAB PO SCH ×3 (02:17→16:20)
[2017-05-19] MEDS: oxyCODONE/ACETAMINOPHEN 5 MG/325 MG TAB PO PRN ×3 (04:56→17:40)
--- NOTE | 2017-05-19 07:10 | HHI.PR ---
Subjective Remarks feeling a bit better but not sleeping well will add desyrel Objective Vital Signs Date Time Temp Pulse Resp B/P (MAP) Pulse Ox O2 Delivery O2 Flow Rate FiO2 05/19/17 05:38 18 05/19/17 05:04 96.2 92 18 128/69 (88) 100 05/19/17 03:06 18 05/19/17 02:08 18 05/19/17 00:03 98.4 82 18 123/63 (83) 100 05/18/17 23:46 82 05/18/17 21:35 18 05/18/17 20:45 98.2 83 18 128/64 (85) 100 05/18/17 16:16 98.3 74 18 136/69 (91) 95 05/18/17 12:34 97.7 79 18 146/71 (96) 97 05/18/17 10:16 70 05/18/17 08:47 98.0 76 18 122/60 (80) 95 I/O 05/18/17 05/18/17 05/18/17 05/19/17 05/19/17 05/19/17 07:00 15:00 23:00 07:00 15:00 23:00 Intake Total 850 ml 240 ml 851 ml 500 ml Balance 850 ml 240 ml 851 ml 500 ml Intake Oral 240 ml 240 ml 500 ml IV Total 610 ml 851 ml # Voids 5 3 # Bowel Movements 5 1 1 Result Diagram: 05/18/1793005/18/1731 Procedures S/P L4-L5 laminectomy on 05/10/17 Objective Remarks GENERAL: frail female with anxiety and back pain SKIN: Warm and dry. HEAD: Normocephalic. EYES: No scleral icterus. No injection or drainage. NECK: Supple, trachea midline. No JVD or lymphadenopathy. CARDIOVASCULAR: Regular rate and rhythm without murmurs, gallops, or rubs. RESPIRATORY: Breath sounds equal bilaterally. No accessory muscle use. GASTROINTESTINAL: Abdomen soft, non-tender, nondistended. EXTREMITIES: No cyanosis, or edema. NEUROLOGICAL: Awake, alert, and oriented x 3. Non-focal. healing lumbar incision present lying in bed on her back comfortable Medications and IVs Inpatient Medications Acetaminophen (Tylenol Supp) 650 mg Q4H PRN RECTAL Temp>101F, Headache; Start 05/07/17 at 23:45 Acetaminophen (Tylenol) 650 mg Q4H PRN PO TEMPERATURE > 101.5 F; Start at 13:00 Albuterol/ Ipratropium (Duoneb Neb) 1 ampule Q6HR NEB PRN NEB SHORTNESS OF BREATH; Start 05/08/17 at 06:30 Azithromycin (Zithromax) 250 mg Taper DAILY PO Last administered on 05/09/17 09:14; Start 05/08/17 at 08:00; Stop 05/11/17 at 06:25; Status DC Bisacodyl (Dulcolax Supp) 10 mg DAILY PRN RECTAL SEVERE CONSITIPATION; Start at 06:45 Carisoprodol (Soma) 350 mg Q8H PO Last administered on 05/19/17 02:17; Start at 10:00 Cefazolin Sodium/ Dextrose 50 ml @ 100 mls/hr Q8H IV Last administered on 11:24; Start 05/10/17 at 20:00; Stop 05/11/17 at 12:29; Status DC Chlorhexidine Gluconate (Hibiclens 4% Top Soln) 1 applic HS TOP ; Start at 21:00; Stop 05/10/17 at 21:01; Status DC Clonidine (Catapres) 0.1 mg Q6H PRN PO SBP>180, DBP>100, HR>65; Start 05/16/17 at 08:45 Clonidine (Catapres-Tts 0.1mg Patch.7d) 1 patch Q7D T-DERMAL Last administered on 05/15/17 20:46; Start 05/15/17 at 20:00 Cyclobenzaprine HCl (Flexeril) 10 mg Q8H PRN PO MUSCLE SPASM Last administered on 05/14/17 09:50; Start 05/08/17 at 06:30; Stop 05/14/17 at 11:16; Status DC Dextrose/Sodium Chloride 1,000 ml @ 42 mls/hr [id number] IV Last administered on 05/09/17 23:45; Start 05/09/17 at 21:30; Stop 05/11/17 at 06:25; Status DC Diazepam (Valium) 2 mg Q12H PRN PO anxiety and muscle pain; Start 05/16/17 at 09 :15 Diphenhydramine HCl (Benadryl Inj) 25 mg Q6H PRN IV ITCHING Last administered on 05/18/17 22:01; Start 05/10/17 at 13:00 Enoxaparin Sodium (Lovenox Inj) 40 mg Q24H SQ Last administered on 05/18/17 16: 10; Start 05/11/17 at 14:00 Fentanyl (Duragesic 25 Mcg Patch.72 Hr) 1 patch Q3D T-DERMAL Last administered on 05/16/17 10:06; Start 05/16/17 at 09:15 Fentanyl (Duragesic 50 Mcg Patch.72 Hr) 1 patch Q3D T-DERMAL Last administered on 05/09/17 17:45; Start 05/09/17 at 17:00; Stop 05/11/17 at 06:25 ; Status DC Guaifenesin (Mucinex Er) 600 mg BID PO Last administered on 05/18/17 20:31; Start 05/09/17 at 21:00 Hydromorphone HCl (Dilaudid SIZER MACHINE Inj) 6 mg UNSCH IV Last administered on 05:48; Start 05/10/17 at 11:45; Stop 05/17/17 at 11:15; Status DC IV Flush (NS Flush) 2 ml BID IVF Last administered on 05/18/17 08:26; Start at 21:00 Lactulose (Lactulose Liq) 30 ml DAILY PRN PO SEVERE CONSITIPATION Last administered on 05/16/17 10:05; Start 05/11/17 at 06:45 Lisinopril (Prinivil) 10 mg DAILY PO Last administered on 05/18/17 09:57; Start 05/16/17 at 09:00 Magnesium Hydroxide (Milk Of Magnesia Liq) 30 ml Q12H PRN PO MILD - MODERATE CONSTIPATION Last administered on 05/16/17 17:46; Start 05/11/17 at 06:45 Megestrol Acetate (Megace Liq) 400 mg DAILY PO Last administered on 05/17/17 08 :55; Start 05/17/17 at 09:00 Miscellaneous (Pill Splitter) 1 ea UNSCH PRN OTHER SEE LABEL COMMENTS; Start at 00:15 Miscellaneous Information 1 Q3D T-DERMAL ; Start 05/19/17 at 09:45 Morphine Sulfate (Morphine Inj) 4 mg Q2H PRN IV PUSH PAIN SCALE 7 TO 10 Last administered on 05/17/17 08:57; Start 05/10/17 at 13:00; Stop 05/17/17 at 13:46; Status DC Naloxone HCl (Narcan Inj) 0.4 mg UNSCH PRN IV RESPIRATORY RATE LESS THAN 10; Start 05/10/17 at 11:45 Nicotine (Habitrol 21 Mg Patch.24 Hr) 1 patch DAILY TD ; Start 05/08/17 at 09:00 ; Stop 05/11/17 at 06:25; Status DC Ondansetron HCl (Zofran Inj) 4 mg Q6H PRN IV NAUSEA OR VOMITING; Start at 23:45 Oxycodone/ Acetaminophen (Percocet 5-325 Mg) 2 tab Q4H PRN PO pain 6-10 Last administered on 05/19/17 04:56; Start 05/17/17 at 13:45 Pantoprazole Sodium (Protonix Inj) 40 mg DAILY IVP Last administered on 09:55; Start 05/11/17 at 09:00 Pantoprazole Sodium (Protonix) 40 mg DAILY PO ; Start 05/10/17 at 09:00; Stop at 12:15; Status DC SIZER MACHINE Dosage Infused (Pha) 1 Q8HR .XX Last administered on 05/17/17 14:06; Start 05/10/17 at 14:00; Stop 05/18/17 at 02:36; Status DC Polyethylene Glycol (Miralax) 17 gm DAILY PO Last administered on 05/17/17 08: 55; Start 05/17/17 at 09:00 Potassium Chloride/Sodium Chloride 1,000 ml @ 83 mls/hr Q12H3M IV Last administered on 05/19/17 02:17; Start 05/10/17 at 13:00 Potassium Chloride (KCl) 40 meq ONCE ONCE PO Last administered on 05/15/17 20: 47; Start 05/15/17 at 20:30; Stop 05/15/17 at 20:31; Status DC Pravastatin Sodium (Pravachol) 10 mg HS PO Last administered on 05/18/17 20:31 ; Start 05/08/17 at 21:00 Pregabalin (Lyrica) 75 mg Q12HR PO Last administered on 05/18/17 20:31; Start 05/15/17 at 21:00 Senna/Docusate Sodium (Pauly-Colace) 2 tab DAILY PO Last administered on 08:57; Start 05/16/17 at 20:30 Sennosides (Senokot) 17.2 mg Q12H PRN PO MODERATE - SEVERE CONSTIPATION Last administered on 05/16/17 17:46; Start 05/11/17 at 06:45 Sertraline HCl (Zoloft) 25 mg DAILY PO Last administered on 05/18/17 09:56; Start 05/08/17 at 09:00 Sodium Biphosphate/ Sodium Phosphate (Fleets Enema (Adult)) 133 ml ONCE ONCE RECTAL Last administered on 05/17/17 15:29; Start 05/17/17 at 07:45; Stop at 07:46; Status DC Sodium Chloride 1,000 ml @ 100 mls/hr Q10H IV ; Start 05/09/17 at 17:52; Stop 05/10/17 at 12:24; Status DC Sodium Chloride (NS Flush) 2 ml UNSCH PRN IV FLUSH FLUSH AFTER USING IV ACCESS ; Start 05/07/17 at 19:45; Stop 05/10/17 at 12:14; Status DC Vancomycin HCl 1000 mg/Sodium Chloride 250 ml @ 250 mls/hr LUMBER DRIVER IV Last administered on 05/10/17 11:04; Start 05/09/17 at 18:00 Assessment and Plan Problem List: (1) Status post lumbar laminectomy ICD Codes: Z98.890 - Other specified postprocedural states Assessment and Plan sp l4-5 laminectomy pod 4 pain improved asses lucio for placement once pain well controlled insomnia add Garland Man DO May 19, 2017 07:10
[2017-05-19] MEDS: DOCUSATE SODIUM 50 MG/SENNA 8.6 MG TAB PO SCH (09:00)
[2017-05-19] MEDS: POLYETHYLENE GLYCOL 17 GM PKG PO SCH (09:00)
[2017-05-19] MEDS: MEGESTROL ACETATE SUSP 400 MG/10 ML CUP PO SCH (09:00)
[2017-05-19] MEDS: SODIUM CHLORIDE 0.9% FLUSH 5 ML FLUSH IVF SCH ×2 (09:00→20:37)
[2017-05-19] MEDS: fentaNYL 25 MCG/HR PATCH T-DERMAL SCH (09:25)
[2017-05-19] MEDS: REMOVE OLD DURAGESIC (FENTANYL) PATCH T-DERMAL SCH (09:25)
[2017-05-19] MEDS: POTASSIUM CHLORIDE 10 MEQ CAP PO SCH ×2 (09:29→20:36)
[2017-05-19] MEDS: guaiFENesin E.R. 600 MG TAB PO SCH ×2 (09:31→20:37)
[2017-05-19] MEDS: SERTRALINE HCL 50 MG TAB PO SCH (09:31)
[2017-05-19] MEDS: PREGABALIN 75 MG CAP PO SCH ×2 (09:31→20:36)
[2017-05-19] MEDS: LISINOPRIL 10 MG TAB PO SCH (09:31)
[2017-05-19] MEDS: PANTOPRAZOLE SODIUM 40 MG VIAL IVP SCH (09:33)
[2017-05-19 10:22] LABS: AUTOMATED NEUTROPHIL # 7.5 TH/MM3 (1.8-7.7); BASOPHIL % 0.4 % (0.0-2.0); EOSINOPHIL % 0.2 % (0.0-4.0); HEMATOCRIT 29.9 % (35.0-46.0); HEMO FLAGS DIFF FINAL; LYMPH % 12.2 % (9.0-44.0); LYMPHOCYTE # 1.1 TH/MM3 (1.0-4.8); MEAN CELL VOLUME 91.3 FL (80.0-100.0); MEAN CORPUSCULAR HEMOGLOBIN 30.3 PG (27.0-34.0); MEAN CORPUSCULAR HGB CONC 33.1 % (32.0-36.0); MONO % 7.1 % (0.0-8.0); NEUT % 80.1 % (16.0-70.0); PLATELET COUNT 412 TH/MM3 (150-450); RED BLOOD COUNT 3.27 MIL/MM3 (4.00-5.30); RED CELL DISTRIBUTION WIDTH 14.3 % (11.6-17.2); WHITE BLOOD COUNT 9.3 TH/MM3 (4.0-11.0)
[2017-05-19 10:54] LABS: BICARBONATE 23.8 MEQ/L (21.0-32.0); POTASSIUM 3.8 MEQ/L (3.5-5.1)
[2017-05-19] MEDS: ENOXAPARIN SODIUM 40 MG/0.4 ML SYRINGE SQ SCH (13:41)
[2017-05-19] MEDS: PRAVASTATIN SOD 10 MG TAB PO SCH (20:36)
[2017-05-19] MEDS ORDERED: traZODone HCL 100 MG TAB PO SCH (21:00)
[2017-05-20] VITALS (7 sets, daily range): BP systolic 118–152; BP diastolic 58–74; PULSE 70–86; RESP 16–20; TEMP 97.3–99.1; O2SAT 95–99
[2017-05-20] MEDS: MORPHINE SULFATE 4 MG/ML INJ IV PUSH PRN ×4 (01:48→20:00)
[2017-05-20] MEDS: CARISOPRODOL 350 MG TAB PO SCH ×3 (01:48→17:28)
[2017-05-20] MEDS: oxyCODONE/ACETAMINOPHEN 5 MG/325 MG TAB PO PRN ×3 (06:21→17:25)
[2017-05-20] MEDS: MEGESTROL ACETATE SUSP 400 MG/10 ML CUP PO SCH (07:59)
[2017-05-20] MEDS: LISINOPRIL 10 MG TAB PO SCH (07:59)
[2017-05-20] MEDS: POLYETHYLENE GLYCOL 17 GM PKG PO SCH (07:59)
[2017-05-20] MEDS: PREGABALIN 75 MG CAP PO SCH ×2 (07:59→20:00)
[2017-05-20] MEDS: guaiFENesin E.R. 600 MG TAB PO SCH ×2 (08:00→19:59)
[2017-05-20] MEDS: SERTRALINE HCL 50 MG TAB PO SCH (08:00)
[2017-05-20] MEDS: POTASSIUM CHLORIDE 10 MEQ CAP PO SCH ×2 (08:01→20:00)
[2017-05-20] MEDS: DOCUSATE SODIUM 50 MG/SENNA 8.6 MG TAB PO SCH (08:01)
[2017-05-20] MEDS: SODIUM CHLORIDE 0.9% FLUSH 5 ML FLUSH IVF SCH ×2 (08:03→20:00)
[2017-05-20] MEDS: PANTOPRAZOLE SODIUM 40 MG VIAL IVP SCH (08:03)
[2017-05-20] MEDS: NS + KCL 20 MEQ INJ 1,000 ML IV SCH (08:09)
--- NOTE | 2017-05-20 08:38 | HHI.PR ---
Subjective Remarks slept better but did not fall asleep untill after 1am will increase rowan Objective Vital Signs Date Time Temp Pulse Resp B/P (MAP) Pulse Ox O2 Delivery O2 Flow Rate FiO2 05/20/17 06:21 99.1 79 20 152/70 (97) 95 05/20/17 01:53 20 05/20/17 00:00 97.3 77 20 147/65 (92) 97 05/19/17 20:41 98.5 74 18 158/74 (102) 95 05/19/17 16:00 99.4 78 18 144/78 (100) 95 05/19/17 15:12 80 05/19/17 12:00 99.3 75 18 132/78 (96) 94 I/O 05/19/17 05/19/17 05/19/17 05/20/17 05/20/17 05/20/17 07:00 15:00 23:00 07:00 15:00 23:00 Intake Total 500 ml 240 ml 1000 ml 360 ml Output Total 350 ml Balance 500 ml 240 ml 1000 ml 10 ml Intake Oral 500 ml 240 ml 360 ml IV Total 1000 ml Output Urine Total 350 ml # Voids 5 # Bowel Movements 0 Result Diagram: 05/19/1746 05/19/17 0946 Procedures S/P L4-L5 laminectomy on 05/10/17 Objective Remarks GENERAL: frail female with anxiety and back pain SKIN: Warm and dry. HEAD: Normocephalic. EYES: No scleral icterus. No injection or drainage. NECK: Supple, trachea midline. No JVD or lymphadenopathy. CARDIOVASCULAR: Regular rate and rhythm without murmurs, gallops, or rubs. RESPIRATORY: Breath sounds equal bilaterally. No accessory muscle use. GASTROINTESTINAL: Abdomen soft, non-tender, nondistended. EXTREMITIES: No cyanosis, or edema. NEUROLOGICAL: Awake, alert, and oriented x 3. Non-focal. healing lumbar incision present lying in bed on her back comfortable Assessment and Plan Problem List: (1) Status post lumbar laminectomy ICD Codes: Z98.890 - Other specified postprocedural states Assessment and Plan sp l4-5 laminectomy pod 4 pain improved asses lucio for placement once pain well controlled insomnia continues increase Garland Man DO May 20, 2017 08:38
[2017-05-20 10:48] LABS: AUTOMATED NEUTROPHIL # 8.7 TH/MM3 (1.8-7.7); BASOPHIL % 0.4 % (0.0-2.0); EOSINOPHIL % 0.1 % (0.0-4.0); HEMATOCRIT 31.2 % (35.0-46.0); HEMO FLAGS DIFF FINAL; LYMPH % 11.3 % (9.0-44.0); LYMPHOCYTE # 1.2 TH/MM3 (1.0-4.8); MEAN CORPUSCULAR HEMOGLOBIN 31.1 PG (27.0-34.0); MEAN CORPUSCULAR HGB CONC 34.2 % (32.0-36.0); MONO % 5.2 % (0.0-8.0); PLATELET COUNT 538 TH/MM3 (150-450); RED BLOOD COUNT 3.42 MIL/MM3 (4.00-5.30); WHITE BLOOD COUNT 10.5 TH/MM3 (4.0-11.0)
[2017-05-20 11:19] LABS: BICARBONATE 21.4 MEQ/L (21.0-32.0)
[2017-05-20] MEDS: ENOXAPARIN SODIUM 40 MG/0.4 ML SYRINGE SQ SCH (13:45)
[2017-05-20] MEDS: traZODone HCL 100 MG TAB PO SCH (20:00)
[2017-05-20] MEDS: PRAVASTATIN SOD 10 MG TAB PO SCH (20:00)
[2017-05-21] VITALS (7 sets, daily range): BP systolic 113–140; BP diastolic 55–67; PULSE 68–91; RESP 17–19; TEMP 97.6–98.5; O2SAT 95–97
[2017-05-21] MEDS: NS + KCL 20 MEQ INJ 1,000 ML IV SCH ×2 (00:05→12:11)
[2017-05-21] MEDS: oxyCODONE/ACETAMINOPHEN 5 MG/325 MG TAB PO PRN ×4 (00:06→17:48)
[2017-05-21] MEDS: MORPHINE SULFATE 4 MG/ML INJ IV PUSH PRN ×2 (03:39→09:27)
[2017-05-21] MEDS: CARISOPRODOL 350 MG TAB PO SCH ×3 (03:39→17:47)
[2017-05-21 07:26] LABS: AUTOMATED NEUTROPHIL # 6.7 TH/MM3 (1.8-7.7); BASOPHIL % 0.5 % (0.0-2.0); EOSINOPHIL % 0.4 % (0.0-4.0); HEMATOCRIT 27.8 % (35.0-46.0); HEMO FLAGS DIFF FINAL; LYMPH % 14.6 % (9.0-44.0); LYMPHOCYTE # 1.3 TH/MM3 (1.0-4.8); MEAN CELL VOLUME 91.2 FL (80.0-100.0); MEAN CORPUSCULAR HEMOGLOBIN 30.4 PG (27.0-34.0); MEAN CORPUSCULAR HGB CONC 33.3 % (32.0-36.0); MONO % 7.8 % (0.0-8.0); NEUT % 76.7 % (16.0-70.0); PLATELET COUNT 458 TH/MM3 (150-450); RED BLOOD COUNT 3.05 MIL/MM3 (4.00-5.30); RED CELL DISTRIBUTION WIDTH 14.2 % (11.6-17.2); WHITE BLOOD COUNT 8.8 TH/MM3 (4.0-11.0)
[2017-05-21 07:31] LABS: BICARBONATE 23.4 MEQ/L (21.0-32.0); POTASSIUM 4.3 MEQ/L (3.5-5.1)
[2017-05-21] MEDS: MEGESTROL ACETATE SUSP 400 MG/10 ML CUP PO SCH (09:00)
[2017-05-21] MEDS: DOCUSATE SODIUM 50 MG/SENNA 8.6 MG TAB PO SCH (09:00)
[2017-05-21] MEDS: SODIUM CHLORIDE 0.9% FLUSH 5 ML FLUSH IVF SCH ×2 (09:00→20:18)
[2017-05-21] MEDS: POLYETHYLENE GLYCOL 17 GM PKG PO SCH (09:00)
[2017-05-21] MEDS: guaiFENesin E.R. 600 MG TAB PO SCH ×2 (09:20→20:17)
[2017-05-21] MEDS: POTASSIUM CHLORIDE 10 MEQ CAP PO SCH ×2 (09:22→20:17)
[2017-05-21] MEDS: SERTRALINE HCL 50 MG TAB PO SCH (09:22)
[2017-05-21] MEDS: PREGABALIN 75 MG CAP PO SCH ×2 (09:23→20:17)
[2017-05-21] MEDS: LISINOPRIL 10 MG TAB PO SCH (09:25)
[2017-05-21] MEDS: PANTOPRAZOLE SODIUM 40 MG VIAL IVP SCH (09:26)
--- NOTE | 2017-05-21 14:22 | HHI.PR ---
Subjective Remarks Denies any CP or SOB. Reports improved PO intake will discontinue IVF's Objective Vital Signs Date Time Temp Pulse Resp B/P (MAP) Pulse Ox O2 Delivery O2 Flow Rate FiO2 05/21/17 12:00 97.8 91 19 114/66 (82) 96 05/21/17 08:00 97.6 74 19 113/60 (77) 96 05/21/17 04:03 98.2 74 17 138/66 (90) 96 05/21/17 03:44 16 05/21/17 00:03 98.5 80 17 140/67 (91) 97 05/20/17 20:05 98.0 85 17 118/58 (78) 97 05/20/17 16:00 97.8 70 16 128/65 (86) 96 I/O 05/20/17 05/20/17 05/20/17 05/21/17 05/21/17 05/21/17 07:00 15:00 23:00 07:00 15:00 23:00 Intake Total 360 ml 600 ml 360 ml 240 ml 1000 ml Output Total 350 ml Balance 10 ml 600 ml 360 ml 240 ml 1000 ml Intake Oral 360 ml 600 ml 360 ml 240 ml IV Total 1000 ml Output Urine Total 350 ml # Voids 3 2 4 # Bowel Movements 2 0 0 Result Diagram: 05/21/1761605/21/17616 Procedures S/P L4-L5 laminectomy on 05/10/17 Objective Remarks GENERAL: Alert and oriented. SKIN: Warm and dry. Dressing intact on lower back. HEAD: Normocephalic. EYES: No scleral icterus. No injection or drainage. NECK: Supple, trachea midline. No JVD or lymphadenopathy. CARDIOVASCULAR: Regular rate and rhythm without murmurs, gallops, or rubs. RESPIRATORY: Breath sounds equal bilaterally. No accessory muscle use. GASTROINTESTINAL: Abdomen soft, non-tender, nondistended. MUSCULOSKELETAL: No cyanosis, or edema. BACK: Nontender without obvious deformity. No CVA tenderness. Medications and IVs Current Medications Medications (Trade) Dose Ordered Sig/Misael Route Start Time Stop Time Status Last Admin (Zofran Inj) 4 mg Q6H PRN IV 05/07/17 23:45 (Tylenol) 650 mg Q4H PRN PO 05/07/17 23:45 05/14/17 10:52 (Tylenol Supp) 650 mg Q4H PRN RECTAL 05/07/17 23:45 (Zoloft) 25 mg DAILY PO 05/08/17 09:00 05/21/17 09:22 (Pravachol) 10 mg HS PO 05/08/17 21:00 05/20/17 20:00 (Pill Splitter) 1 ea UNSCH PRN OTHER 05/08/17 00:15 (Duoneb Neb) 1 ampule Q6HR NEB PRN NEB 05/08/17 06:30 (Mucinex Er) 600 mg BID PO 05/09/17 21:00 05/21/17 09:20 Cefazolin Sodium/ Dextrose 50 ml @ 150 mls/hr LINUX SYSTEM ADMIN IV 05/09/17 18:00 05/10/17 11:03 Vancomycin HCl 1000 mg/Sodium Chloride 250 ml @ 250 mls/hr LINUX SYSTEM ADMIN IV 05/09/17 18:00 05/10/17 11:04 (NS Flush) 2 ml UNSCH PRN IVF 05/10/17 11:45 05/17/17 14:26 (NS Flush) 2 ml BID IVF 05/10/17 21:00 05/21/17 09:00 (Protonix Inj) 40 mg DAILY IVP 05/11/17 09:00 05/21/17 09:26 (Morphine Inj) 2 mg Q2H PRN IV PUSH 05/10/17 13:00 05/21/17 09:27 (Tylenol) 650 mg Q4H PRN PO 05/10/17 13:00 (Narcan Inj) 0.4 mg UNSCH PRN IV 05/10/17 11:45 (Benadryl Inj) 25 mg Q6H PRN IV 05/10/17 13:00 05/18/17 22:01 (Milk Of Magnesia Liq) 30 ml Q12H PRN PO 05/11/17 06:45 05/16/17 17:46 (Senokot) 17.2 mg Q12H PRN PO 05/11/17 06:45 05/16/17 17:46 (Dulcolax Supp) 10 mg DAILY PRN RECTAL 05/11/17 06:45 (Lactulose Liq) 30 ml DAILY PRN PO 05/11/17 06:45 05/16/17 10:05 (Lovenox Inj) 40 mg Q24H SQ 05/11/17 14:00 05/20/17 13:45 (KCl) 10 meq BID PO 05/13/17 21:00 05/21/17 09:22 (Catapres-Tts 0.1mg Patch.7d) 1 patch Q7D T-DERMAL 05/15/17 20:00 05/15/17 20:46 (Lyrica) 75 mg Q12HR PO 05/15/17 21:00 05/21/17 09:23 (Catapres) 0.1 mg Q6H PRN PO 05/16/17 08:45 (Prinivil) 10 mg DAILY PO 05/16/17 09:00 05/21/17 09:25 (Valium) 2 mg Q12H PRN PO 05/16/17 09:15 (Soma) 350 mg Q8H PO 05/16/17 10:00 05/21/17 11:59 (Duragesic 25 Mcg Patch.72 Hr) 1 patch Q3D T-DERMAL 05/16/17 09:15 05/19/17 09:25 Miscellaneous Information 1 Q3D T-DERMAL 05/19/17 09:45 05/19/17 09:25 (Pauly-Colace) 2 tab DAILY PO 05/16/17 20:30 05/17/17 08:57 (Miralax) 17 gm DAILY PO 05/17/17 09:00 05/17/17 08:55 (Megace Liq) 400 mg DAILY PO 05/17/17 09:00 05/17/17 08:55 (Percocet 5-325 Mg) 1 tab Q4H PRN PO 05/17/17 13:45 (Percocet 5-325 Mg) 2 tab Q4H PRN PO 05/17/17 13:45 05/21/17 12:00 (Desyrel) 150 mg HS PO 05/20/17 21:00 05/20/17 20:00 Assessment and Plan Problem List: (1) Status post lumbar laminectomy ICD Codes: Z98.890 - Other specified postprocedural states (2) Back pain ICD Codes: M54.9 - Dorsalgia, unspecified (3) Depression ICD Codes: F32.9 - Major depressive disorder, single episode, unspecified (4) Tobacco abuse ICD Codes: Z72.0 - Tobacco use (5) COPD (chronic obstructive pulmonary disease) with acute bronchitis ICD Codes: J44.0 - Chronic obstructive pulmonary disease with acute lower respiratory infection (6) Abdominal pain ICD Codes: R10.9 - Unspecified abdominal pain Assessment and Plan 05/08/17 Abdominal pain- GI consulted Presented to ED with abdominal pain for 1 day. Nausea and vomiting reported. The pain was so intense that she was awaken from sleep. She was not able to even stand initially and crawled to bathroom. Abdomen only mildly tender on palpation no guarding present. Pain spasmatic radiating to back. Has morphine for pain. CT of abdomen with no acute abnormality found. Small hiatal hernia. On IV Protonix and IVF's. Zofran PRN Back pain: Patient with pain radiating to back. Is spasmodic in nature. No fall reported. Will order muscle relaxer and imaging. COPD with acute bronchitis- Lung sounds are rhonchi and WBC elevated at 14.3 will start Azithromycin and breathing treatments. Depression - continue zoloft. Reported that her mother on April 10 and she has been very depressed. HLD- continue statin DVT and GI prophylaxis ordered. 05/09/17 Abdominal pain- GI consulted and cleared. Will need to reconsult for further or continued problems. Presented to ED with abdominal pain for 1 day. Nausea and vomiting reported. The pain was so intense that she was awaken from sleep. She was not able to even stand initially and crawled to bathroom. Abdomen non tender on palpation no guarding present. Pain spasmatic radiating to back. Has morphine for pain. CT of abdomen with no acute abnormality found. Small hiatal hernia. On IV Protonix changed to PO. Zofran PRN Back pain: Patient with pain radiating to back. Is spasmodic in nature. No fall reported. On muscle relaxer and IV morphine. Imaging with lumbar spinal stenosis. Neuro checks in a serial fashion. Nonoperative treatment with analgesics versus pain management. A surgical decompression will be offered as a last resort only per Neurosurgeon note. Discussed with Dr. Cowart interventional radiology consulted for epidural steroid injection. Fentanyl patch increased per Dr. Cowart. Gaudencio hold PT today. COPD with acute bronchitis- Lung sounds are rhonchi on Azithromycin and breathing treatments. Mucinex added. Depression - continue zoloft. Reported that her mother on April 10 and she has been very depressed. HLD- continue statin 05/10/17 Abdominal pain- Resolved Back pain: Patient with pain radiating to back. Is spasmodic in nature. No fall reported. On muscle relaxer and IV morphine. Imaging with lumbar spinal stenosis. Neuro checks in a serial fashion. Nonoperative treatment with analgesics versus pain management. A surgical decompression will be offered as a last resort only per Neurosurgeon note. Discussed with Dr. Cowart interventional radiology consulted for epidural steroid injection. Fentanyl patch increased per Dr. Cowart. Plan for laminectomy today. Hyponatremia: NA 132 this AM. Will continue to monitor and recheck in AM COPD with acute bronchitis- Azithromycin and breathing treatments. Mucinex added. Chest Xray with no acute findings. Lung sounds improved Depression - continue zoloft. HLD- continue statin 05/11/17 S/P L4-L5 laminectomy: POD #1. Dressing intact. GULSHAN drain with 20 ml of serous drainage. Pain well controlled on Dilaudid ALTERATION HAND will continue muscle relaxer as need. Has started PT already. Will need to assess for discharge needs with progress with PT. Hyponatremia: Labs pending. Will monitor. COPD with acute bronchitis- Antibiotics, breathing treatments and on mucinex. Chest Xray with no acute findings. Depression - continue zoloft. In good spirits this morning HLD- continue statin Abdominal pain- Resolved GI prophylaxis and SCD Labs pending this am 05/15/17 S/P L4-L5 laminectomy:. Dressing intact. Pain continues to be a issue on Dilaudid ALTERATION HAND and SOMA. Not moving well. Hyponatremia: Labs pending. Will monitor. COPD with acute bronchitis- Antibiotics completed, breathing treatments PRN. Chest Xray with no acute findings. Depression - continue zoloft. HLD- continue statin Labs ordered and pending for today On GI and DVT prophylaxis. 05/16/17 S/P L4-L5 laminectomy:. Dressing intact. Pain continues to be a issue on Dilaudid ALTERATION HAND, morphine PRN, and SOMA. Continues to report increased pain discussed with Dr Cowart and he will change soma to ATC to see if this will help also adding valium PRN. Reported that she walked to door yesterday. Will monitor for oversedation Hyponatremia: Na 131 this am. Will continue to monitor. COPD with acute bronchitis- Antibiotics completed, breathing treatments PRN. Chest Xray with no acute findings. Depression - continue zoloft. HLD- continue statin Hypokalemia: Replacment given last night. Recheck pending. Anemia: HGB yesterday 9.8. Will monitor and add iron replacement. Labs ordered and pending for today On GI and DVT prophylaxis. Discharge planning to [facility] 05/17/17 S/P L4-L5 laminectomy:. Dressing intact. On Dilaudid ALTERATION HAND, morphine PRN, Fentanyl, and SOMA. Reports that her pain relief has improved. Will discontinue dilaudid ALTERATION HAND and monitor. Hyponatremia: Na 128 this am. IVF increased and Sodium tablets TID added recheck in AM COPD with acute bronchitis- Antibiotics completed, breathing treatments PRN. Chest Xray with no acute findings. Depression - continue zoloft. In better spirits. HLD- continue statin Hypokalemia: Resolved. K 3.6 Anemia: HGB stable at 9.9. Will monitor on iron replacement. Constipation: Miralax and senna added daily yesterday. Fleets enema ordered for today. 05/18/17 S/P L4-L5 laminectomy on 05/11: Dilaudid ALTERATION HAND discontinued yesterday. On Percocet , fentanyl patch and IV morphine PRN. Complaining of increased pain this AM. Hyponatremia: Na 128 yesterday. IVF increased and Sodium tablets TID added yesterday. Recheck pending. COPD with acute bronchitis- Antibiotics completed, breathing treatments PRN. Chest Xray with no acute findings. Depression - continue Zoloft. HLD- continue statin Hypokalemia: Resolved. Pending this AM Anemia: HGB stable. Will monitor on iron replacement. Constipation: Multiple BM yesterday 05/21/17 S/P L4-L5 laminectomy on 05/11: On Percocet, fentanyl patch and IV morphine PRN. Will discontinue IV morphine anticipating discharge tomorrow. Hyponatremia: Na improved at 131. COPD with acute bronchitis- resolved Depression - continue Zoloft and monitor HLD- continue statin Hypokalemia: Resolved. Anemia: HGB stable. Will monitor on iron replacement. Constipation: Resolved Anticipate discharge to [facility] tomorrow. I and the PEAT SHREDDER TENDER have both examined this patient and reviewed this note and I agree with these findings and plan of care. Hawa Reilly May 21, 2017 14:22
[2017-05-21] MEDS: ENOXAPARIN SODIUM 40 MG/0.4 ML SYRINGE SQ SCH (15:57)
[2017-05-21] MEDS: traZODone HCL 100 MG TAB PO SCH (20:18)
[2017-05-21] MEDS: PRAVASTATIN SOD 10 MG TAB PO SCH (20:18)
[2017-05-22] VITALS: BP 113/54; PULSE 67; RESP 18; TEMP 98.2; O2SAT 95
[2017-05-22] MEDS: oxyCODONE/ACETAMINOPHEN 5 MG/325 MG TAB PO PRN ×3 (01:20→12:33)
[2017-05-22] MEDS: CARISOPRODOL 350 MG TAB PO SCH ×2 (01:20→10:50)
[2017-05-22 04:00] VITALS: BP 109/55; PULSE 73; RESP 18; TEMP 97.5; O2SAT 97
[2017-05-22] MEDS ORDERED: diphenhydrAMINE INJ IV (07:44)
[2017-05-22] MEDS ORDERED: LYRI75CA PO (07:44)
[2017-05-22] MEDS ORDERED: CLON.1T T-DERMAL (07:44)
[2017-05-22] MEDS ORDERED: ZOLO50TA PO (07:44)
[2017-05-22] MEDS ORDERED: OXYC1TAB63 PO (07:44)
[2017-05-22] MEDS ORDERED: CLON.1 PO (07:44)
[2017-05-22] MEDS ORDERED: MAGN400S PO (07:44)
[2017-05-22] MEDS ORDERED: SENN1TAB PO (07:44)
[2017-05-22] MEDS ORDERED: BISA10R RECTAL (07:44)
[2017-05-22] MEDS ORDERED: LISI10TA3 PO (07:44)
[2017-05-22] MEDS ORDERED: DIAZ2 PO (07:44)
[2017-05-22] MEDS ORDERED: IPRASOL NEB (07:44)
[2017-05-22] MEDS ORDERED: ACET1TAB86 PO (07:44)
[2017-05-22] MEDS ORDERED: TRAZ50TA12 PO (07:44)
[2017-05-22] MEDS ORDERED: PANT40TA3 PO (07:44)
[2017-05-22] MEDS ORDERED: POLY17S PO (07:44)
[2017-05-22] MEDS ORDERED: PRAV10TA PO (07:44)
[2017-05-22] MEDS ORDERED: FENT25T T-DERMAL (07:44)
[2017-05-22] MEDS ORDERED: ACET650R RECTAL (07:44)
[2017-05-22] MEDS ORDERED: POTA10CA PO (07:44)
[2017-05-22] MEDS ORDERED: ENOX40P SQ (07:44)
[2017-05-22] MEDS ORDERED: CARI350T25 PO (07:44)
[2017-05-22] MEDS ORDERED: MEGE40SU PO (07:44)
--- NOTE | 2017-05-22 07:53 | HHI.DS ---
Discharge Summary Admission Date May 10, 2017 at 14:17 Discharge Date: May 22, 2017 Admitting Diagnosis Intractable abdominal pain Procedures S/P L4-L5 laminectomy on 05/10/17 Brief History Patient is a year old female who presented to the ER with intractable abdominal pain for 1 day. The pain woke her up in the morning. Patient denies anything like this in the past. Denies any history of abdominal surgeries. Reports nausea and vomiting. Patient states she's tried taking her Tylenol with Codeine for this along with aspirin with no improvement in her symptoms. Patient has history of COPD, depression, and HLD. Patient denies any known fevers, recent illness or falls. Denies any chest pain or shortness of breath. Denies any loss or change in bladder. Denies any recent antibiotic use. During exam pain seems spasmodic radiating to the back. GI is consulted and will also obtain imaging of back. CBC/BMP: 05/21/17 0617 05/21/17 0617 Significant Findings Laboratory Tests Test 05/19/17 09:46 05/20/17 09:48 05/21/17 06:17 Red Blood Count 3.27 MIL/MM3 (4.00-5.30) 3.42 MIL/MM3 (4.00-5.30) 3.05 MIL/MM3 (4.00-5.30) Hemoglobin 9.9 GM/DL (11.6-15.3) 10.7 GM/DL (11.6-15.3) 9.3 GM/DL (11.6-15.3) Hematocrit 29.9 % (35.0-46.0) 31.2 % (35.0-46.0) 27.8 % (35.0-46.0) Neutrophils (%) (Auto) 80.1 % (16.0-70.0) 83.0 % (16.0-70.0) 76.7 % (16.0-70.0) Blood Urea Nitrogen 6 MG/DL (7-18) Creatinine 0.49 MG/DL (0.50-1.00) Calcium Level 8.4 MG/DL (8.5-10.1) Sodium Level 132 MEQ/L (136-145) 130 MEQ/L (136-145) 131 MEQ/L (136-145) Platelet Count 538 TH/MM3 (150-450) 458 TH/MM3 (150-450) Neutrophils # (Auto) 8.7 TH/MM3 (1.8-7.7) Chloride Level 96 MEQ/L (98-107) PE at Discharge GENERAL: Alert and oriented. SKIN: Warm and dry. Dressing intact on lower back. HEAD: Normocephalic. EYES: No scleral icterus. No injection or drainage. NECK: Supple, trachea midline. No JVD or lymphadenopathy. CARDIOVASCULAR: Regular rate and rhythm without murmurs, gallops, or rubs. RESPIRATORY: Breath sounds equal bilaterally. No accessory muscle use. GASTROINTESTINAL: Abdomen soft, non-tender, nondistended. MUSCULOSKELETAL: No cyanosis, or edema. BACK: Nontender without obvious deformity. No CVA tenderness. Hospital Course Patient is a 66 year old female who presented to the ER initially for intractable abdominal pain for 1 day. Patient has history of COPD, depression, and HLD. During her initial exam pain seems spasmodic radiating to the back. Neurosurgery was consulted and patient ended up having a L4-L5 laminectomy on 05/11. Post op pain continued to be a issue with activity and she was weaned from IV morphine yesterday. She is on SOMA, lyrica, fentanyl patch and percocet for pain. Incision on back healing well dressing on. She is being discharged to [facility] needing intensive physical therapy. I and the AIR LAUNCH WEAPONS TECHNICIAN have both examined this patient and reviewed this note and I agree with these findings and plan of care. Garland Story DO Pt Condition on Discharge: Good Discharge Disposition: Rehab Inpatient Discharge Instructions DIET: Follow Instructions for: As Tolerated, No Restrictions Speech Therapy-Diet Recommenda: Regular Activities you can perform: Regular-No Restrictions Follow up Referrals: PCP Follow-up @ story New Medications: Acetaminophen (Eq Acetaminophen) 325 Mg Tab 650 MG PO Q4H PRN for TEMPERATURE > 101.5 F for 10 Days, TAB Acetaminophen Supp (Acephen Supp) 650 Mg Supp 650 MG RECTAL Q4H PRN for Temp>101F, Headache for 10 Days, SUPP Acetaminophen (Eq Acetaminophen) 325 Mg Tab 650 MG PO Q4H PRN for Temp>101F, Headache for 10 Days, TAB Bisacodyl Supp (Bisac-Evac Supp) 10 Mg Supp 10 MG RECTAL DAILY PRN for SEVERE CONSITIPATION for 10 Days, SUPP Carisoprodol (Carisoprodol) 350 Mg Tablet 350 MG PO Q8H for Pain Management for 10 Days, TAB Clonidine (Catapres) 0.1 Mg Tab 0.1 MG PO Q6H PRN for SBP>180, DBP>100, HR>65 for 10 Days, TAB Clonidine 168 HR Patch (Uwopwiyn-Ldr-3 168 HR Patch) 0.1 Mg/24 Hr Patch 1 PATCH T-DERMAL Q7D for Blood Pressure Management for 10 Days, #10 PATCH Diazepam (Valium) 2 Mg Tab 2 MG PO Q12H PRN for anxiety and muscle pain for 10 Days, TAB Enoxaparin Inj (Lovenox Inj) 40 Mg/0.4 Ml Syr 40 MG SQ Q24H for Blood Clot Prevention for 10 Days, INJECTION Fentanyl Patch 72 HR (Duragesic Patch 72 HR) 25 Mcg/Hr Patch 1 PATCH T-DERMAL Q3D for Pain Management for 10 Days, PATCH Remove old patch when new one placed. Ipratropium-Albuterol Neb (Duoneb) 0.5-2.5 Mg/3 Ml Neb 1 AMPULE NEB Q6HR NEB PRN for SHORTNESS OF BREATH for 10 Days, ML Lisinopril (Lisinopril) 10 Mg Tab 10 MG PO DAILY for Blood Pressure Management for 10 Days, TAB Magnesium Hydroxide (Eq Milk of Magnesia) 400 Mg/5 Ml Willa 30 ML PO Q12H PRN for MILD - MODERATE CONSTIPATION for 10 Days, CONTAINER Megestrol Liq (Megestrol Liq) 40 Mg/Ml Susp 400 MG PO DAILY for Nutritional Supplement for 10 Days, TAB Oxycodone-Acetaminophen (Oxycodone-Acetaminophen) 5-325 mg Tab 1 TAB PO Q4H PRN for pain 1-5 for 10 Days, TAB Oxycodone-Acetaminophen (Oxycodone-Acetaminophen) 5-325 mg Tab 2 TAB PO Q4H PRN for pain 6-10 for 10 Days, TAB Pantoprazole (Pantoprazole) 40 Mg Tab 40 MG PO DAILY for Heartburn Management for 7 Days, TAB Polyethylene Glycol 3350 Powder (Polyethylene Glycol 3350 Powder) 17 Gram Pow 17 GM PO DAILY for Constipation for 10 Days, PKT Potassium Chloride ER (Potassium Chloride ER) 10 Meq Cap 10 MEQ PO BID for Electrolyte Replacement for 10 Days, CAP Pravastatin (Pravastatin) 10 Mg Tab 10 MG PO HS for Cholesterol Management for 10 Days, TAB Pregabalin (Lyrica) 75 Mg Cap 75 MG PO Q12HR for Pain Management for 10 Days, CAP Sennosides-Docusate Sodium (Senna Plus 8.6-50 mg) 8.6 Mg-50 Mg Tab 2 TAB PO DAILY for Constipation for 10 Days, TAB Sertraline (Zoloft) 50 Mg Tab 25 MG PO DAILY for Depression Control for 10 Days, TAB Trazodone (Trazodone) 50 Mg Tab 150 MG PO HS for Anxiety and/or Insomnia for 10 Days, TAB [diphenhydrAMINE INJ] () 50 MG/ML INJ 25 MG IV Q6H PRN for ITCHING Discontinued Medications: Acetaminophen-Codeine (Tylenol-Codeine #3) 300-30 mg Tab 1 TAB PO Q4H PRN for PAIN, TAB 0 Refills Sertraline (Zoloft) 25 Mg Tab 25 MG PO DAILY, #30 TAB 0 Refills Simvastatin (Simvastatin) 5 Mg Tab 5 MG PO DAILY for Cholesterol Management, #30 TAB 0 Refills Hawa Ramirez May 22, 2017 07:53
[2017-05-22] MEDS: guaiFENesin E.R. 600 MG TAB PO SCH (08:04)
[2017-05-22] MEDS: LISINOPRIL 10 MG TAB PO SCH (08:04)
[2017-05-22] MEDS: POTASSIUM CHLORIDE 10 MEQ CAP PO SCH (08:05)
[2017-05-22] MEDS: SERTRALINE HCL 50 MG TAB PO SCH (08:05)
[2017-05-22] MEDS: MEGESTROL ACETATE SUSP 400 MG/10 ML CUP PO SCH (08:05)
[2017-05-22] MEDS: PREGABALIN 75 MG CAP PO SCH (08:05)
[2017-05-22] MEDS: DOCUSATE SODIUM 50 MG/SENNA 8.6 MG TAB PO SCH (08:05)
[2017-05-22] MEDS: REMOVE OLD DURAGESIC (FENTANYL) PATCH T-DERMAL SCH (08:06)
[2017-05-22] MEDS: fentaNYL 25 MCG/HR PATCH T-DERMAL SCH (08:06)
[2017-05-22] MEDS: SODIUM CHLORIDE 0.9% FLUSH 5 ML FLUSH IVF SCH (08:07)
[2017-05-22] MEDS: POLYETHYLENE GLYCOL 17 GM PKG PO SCH (08:07)
[2017-05-22 08:26] VITALS: BP 133/63; PULSE 67; RESP 18; TEMP 98.4; O2SAT 97
[2017-05-22] MEDS ORDERED: PANTOPRAZOLE SOD 40 MG DELAYED RELEASE TAB PO SCH (09:00)
[2017-05-22 10:16] VITALS: PULSE 70
[2017-05-22 12:00] VITALS: BP 102/66; PULSE 119; RESP 20; TEMP 97.3; O2SAT 100
[2017-05-22] MEDS: ENOXAPARIN SODIUM 40 MG/0.4 ML SYRINGE SQ SCH (12:34)
[2017-06-01] MEDS ORDERED: COMMODE 3-IN-11 MIS (12:43)
[2017-06-01] MEDS ORDERED: GETGO ROLLING W1 MI1 (12:43)
[2017-06-07] MEDS ORDERED: LEVA750T9 PO (14:49)
[2017-06-08] MEDS ORDERED: CEFA2SOL IV (11:22)
[2017-06-08] MEDS ORDERED: LEVA750T9 PO ×2 (11:22→11:31)
[2017-06-08] MEDS ORDERED: EPIN1INJ21 SQ (11:22)
[2017-06-08] MEDS ORDERED: EPIN1INJ21 IV PUSH (11:22)
[2017-06-08] MEDS ORDERED: SOLU250I IV PUSH (11:22)
[2017-06-08] MEDS ORDERED: POLY17S PO (11:31)
[2017-06-08] MEDS ORDERED: PANT40TA3 PO (11:31)
[2017-06-08] MEDS ORDERED: OXYC1TAB35 PO (11:31)
[2017-06-08] MEDS ORDERED: PRAV10TA PO (11:31)
[2017-06-08] MEDS ORDERED: TIZA4 PO (11:31)
[2017-06-08] MEDS ORDERED: NU-IRON PO (11:31)
[2017-06-08] MEDS ORDERED: TRAZ50TA12 PO (11:31)
[2017-06-08] MEDS ORDERED: LACT PO (11:31)
[2017-06-08] MEDS ORDERED: ZOLO50TA PO (11:31)
[2017-06-08] MEDS ORDERED: LYRI100C PO (11:31)
[2017-06-08] MEDS ORDERED: SENN1TAB PO (11:31)
[2017-06-08] MEDS ORDERED: FENT25T T-DERMAL (11:31)
[2017-06-20] MEDS ORDERED: HYDR-3533 PO (13:04)
[2017-06-21] MEDS ORDERED: TRAM50TA PO (14:20)
== END 2017-05-22 14:36 | DRG 460 ==
LOC: NEPE 18:32 → NEDA 23:48 → NEPHCDU 05-08 01:24 → N05B 05-10 09:32 → OBSVTOIN 05-10 14:17 → N05A 05-10 17:24
PROVIDERS: ADMIT Family Medicine; ATTEND Family Medicine
PROC: 0SB20ZZ Excision of Lumbar Vertebral Disc, Open Approach (ICD-10-PCS; 2017-05-10)
PROC: 0SG00A1 (ICD-10-PCS; principal; 2017-05-10 08:15)
DX: M51.16 Intervertebral disc disorders with radiculopathy, lumbar region (principal); J44.0 Chronic obstructive pulmonary disease with (acute) lower respiratory infection; E87.1 Hypo-osmolality and hyponatremia; M47.26 Other spondylosis with radiculopathy, lumbar region; M48.06 Spinal stenosis, lumbar region; J20.9 Acute bronchitis, unspecified; K44.9 Diaphragmatic hernia without obstruction or gangrene; F32.9 Major depressive disorder, single episode, unspecified; E78.5 Hyperlipidemia, unspecified; E87.6 Hypokalemia; D64.9 Anemia, unspecified; R11.2 Nausea with vomiting, unspecified; I10 Essential (primary) hypertension; K59.03 Drug induced constipation; T40.605A Adverse effect of unspecified narcotics, initial encounter; G47.00 Insomnia, unspecified; F17.200 Nicotine dependence, unspecified, uncomplicated
CPT/HCPCS: 71010; 72100; 72148; 74177; 76000; 76937; 80048; 80053; 81001; 83605; 83690; 84484; 85007; 85025; 85027; 85610; 85730; 86850; 86900; 86901; 93005; 94150; 94664; 96372; 96374; 96375; 96376; C1713; C9113; G0378; J0131; J0690; J1170; J1200; J1580; J1650; J2250; J2270; J2370; J2405; J3010; J3370; J3480; J7030; J7050; J7120; L0200; L0484; Q9967

== ENCOUNTER 2017-06-10 12:20 | Emergency (ER) | payer BC ==
[~2017-06-10] VITALS: Ht 167.6 cm; Wt 65.0 kg
[~2017-06-10 12:20] MED LIST changes: +ACET1TAB86 PO; +ACET650R RECTAL; +BISA10R RECTAL; -BUPR-175 PO; +CARI350T25 PO; +CEFA2SOL IV; +CLON.1 PO; +CLON.1T T-DERMAL; +COMMODE 3-IN-11 MIS; +DIAZ2 PO; +ENOX40P SQ; +EPIN1INJ21 IV PUSH; +EPIN1INJ21 SQ; +FENT25T T-DERMAL; +GETGO ROLLING W1 MI1; -IBUP600T26 PO; +IPRASOL NEB; +LACT PO; +LEVA750T9 PO; +LISI10TA3 PO; -LORTA10 PO; +LYRI100C PO; +LYRI75CA PO; +MAGN400S PO; +MEGE40SU PO; -MUSCLE RELAXER; +NU-IRON PO; +OXYC1TAB35 PO; +OXYC1TAB63 PO; +PANT40TA3 PO; +POLY17S PO; +POTA10CA PO; +PRAV10TA PO; +SENN1TAB PO; +SOLU250I IV PUSH; +TIZA4 PO; +TRAZ50TA12 PO; +ZOLO50TA PO; +diphenhydrAMINE INJ IV
[2017-06-10 12:22] VITALS: BP 110/52; PULSE 99; RESP 16; TEMP 98.8; O2SAT 93
[2017-06-10] MEDS ORDERED: ZOLO50TA PO (13:04)
[2017-06-10 13:45] VITALS: BP 98/58; PULSE 89; RESP 16; O2SAT 97
[2017-06-10] MEDS ORDERED: ALTEPLASE RECOMBINANT 2 MG VIAL INTRACATH ONE (14:30)
--- NOTE | 2017-06-10 14:31 | PD ---
HPI Chief Complaint: Mens Locker Room Attendant Problem Time Seen by Provider: 14:16 Travel History International Travel<30 days: No Contact w/Intl Traveler<30days: No Traveled to known affect area: No History of Present Illness HPI This 66-year-old female is here because of an obstructed PICC line. She was recently in the hospital for osteomyelitis of her back. She is getting intravenous antibiotics every 8 hours. Nurse was at her house this morning and was unable to use the PICC line that was obstructed. Patient got lightheaded while she was trying to flush it. PFSH Past Medical History Arthritis: Yes Asthma: Yes Blood Disorders: No Anxiety: Yes Depression: Yes Heart Rhythm Problems: No Cancer: Yes (skin cancers removed) Cardiovascular Problems: Yes High Cholesterol: Yes Chemotherapy: No Chest Pain: No Congestive Heart Failure: No COPD: Yes Cerebrovascular Accident: No Diabetes: No Diminished Hearing: No Endocrine: No Gastrointestinal Disorders: Yes GERD: No Genitourinary: No Hiatal Hernia: No Immune Disorder: No Kidney Stones: Yes Musculoskeletal: Yes (osteomyelitis in spine) Neurologic: Yes Psychiatric: Yes Reproductive: No Respiratory: Yes Immunizations Current: Yes Migraines: No Radiation Therapy: No Renal Failure: No Seizures: No Sleep Apnea: No Thyroid Disease: No Ulcer: No Tetanus Vaccination: > 5 Years Influenza Vaccination: No ?: Not Menopausal: Yes : 0 Past Surgical History Abdominal Surgery: No Cardiac Surgery: No Ear Surgery: No Endocrine Surgery: No Eye Surgery: No Genitourinary Surgery: No Gynecologic Surgery: Yes (Hysterectomy) Hysterectomy: Yes Neurologic Surgery: Yes (Spinal surgery L4-L5 Lami) Oral Surgery: No Thoracic Surgery: No Other Surgery: Yes Social History Alcohol Use: No Tobacco Use: No (quit) Substance Use: Yes (Marijuana 3-4 times a week. Last used a week before admission) Allergies-Medications (Allergen,Severity, Reaction): Coded Allergies: No Known Allergies (Verified , 06/10/17) Reported Meds & Prescriptions Reported Meds & Active Scripts Active Acidophilus/l-Sporogenes (Lactobacillus Acidophilus) 35 Million Cell-25 Million Cell Tab 1 Tab PO TID 40 Days Senna Plus 8.6-50 mg (Sennosides-Docusate Sodium) 8.6 Mg-50 Mg Tab 1 Tab PO BID 30 Days Lyrica (Pregabalin) 100 Mg Cap 100 Mg PO TID 30 Days Poly-Iron 150 (Polysaccharide Iron Complex) 150 Mg Iron Cap 150 Mg PO Q12H 30 Days Zanaflex (Tizanidine HCl) 4 Mg Tab 4 Mg PO Q8HR PRN avoid taking within 1-2 hours of pain medication Pantoprazole (Pantoprazole Sodium) 40 Mg Tab 40 Mg PO DAILY 30 Days Trazodone (Trazodone HCl) 50 Mg Tab 150 Mg PO HS PRN avoid taking at night with muscle relaxer and pain medication Duragesic Patch 72 HR (Fentanyl) 25 Mcg/Hr Patch 1 Patch T-DERMAL Q3D Remove old patch when new one placed. Pravastatin 10 Mg Tab 10 Mg PO HS 30 Days Cefazolin Inj (Cefazolin Sodium/Dextrose) 2 Gm/50 Ml Bagp 2 Gm IV Q8H 40 Days Levaquin (Levofloxacin) 750 Mg Tablet 750 Mg PO DAILY 40 Days Eq Milk of Magnesia (Magnesium Hydroxide) 400 Mg/5 Ml Willa 30 Ml PO Q12H PRN 10 Days Bisac-Evac Supp (Bisacodyl) 10 Mg Supp 10 Mg RECTAL DAILY PRN 10 Days Potassium Chloride ER (Potassium Chloride) 10 Meq Cap 10 Meq PO BID 10 Days Valium (Diazepam) 2 Mg Tab 2 Mg PO Q12H PRN 10 Days Oxycodone-Acetaminophen 5-325 mg Tab 2 Tab PO Q4H PRN 10 Days Oxycodone-Acetaminophen 5-325 mg Tab 1 Tab PO Q4H PRN 10 Days Reported Zoloft (Sertraline HCl) 50 Mg Tab 50 Mg PO DAILY Review of Systems General / Constitutional: No: Fever, Chills Eyes: No: Diploplia, Blurred Vision HENT: No: Headaches, Vertigo Cardiovascular: No: Chest Pain or Discomfort, Palpitations Respiratory: No: Cough, Shortness of Breath Gastrointestinal: No: Nausea Physical Exam Narrative GENERAL: Well-developed female SKIN: Focused skin assessment warm/dry. IV site appears clean and noninfected. HEAD: Atraumatic. Normocephalic. EYES: Pupils equal and round. No scleral icterus. No injection or drainage. ENT: No nasal bleeding or discharge. Mucous membranes pink and moist. NECK: Trachea midline. No JVD. MUSCULOSKELETAL: No obvious deformities. No clubbing. No cyanosis. No edema. PSYCHIATRIC: Appropriate mood and affect; insight and judgment normal. Data Data Last Documented VS Vital Signs Date Time Temp Pulse Resp B/P (MAP) Pulse Ox O2 Delivery O2 Flow Rate FiO2 06/10/17 13:45 89 16 98/58 (71) 97 Room Air 06/10/17 12:22 98.8 Orders Orders Cathflo Activase Inj (Cathflo Activase I (06/10/17 14:30) MDM Medical Decision Making Medical Screen Exam Complete: Yes Emergency Medical Condition: Yes Medical Record Reviewed: Yes Differential Diagnosis Differential includes obstructed PICC line. Narrative Course Activase has been instilled. At 30 minutes there was no resolution of the clot. He will be rechecked at 90 minutes Diagnosis Primary Impression: clotted PICC line Familia Banuelos MD Jun 10, 2017 14:31
[2017-06-10 15:20] VITALS: BP 98/74; PULSE 74; RESP 18; O2SAT 95
[2017-06-10 16:10] VITALS: BP 99/67; PULSE 78; RESP 18; O2SAT 96
[2017-06-10] MEDS ORDERED: ceFAZolin 2 GM PREMIX 50 ML IV ONE (17:30)
[2017-06-10 17:44] LABS: AUTOMATED NEUTROPHIL # 3.3 TH/MM3 (1.8-7.7); BASOPHIL # 0.1 TH/MM3 (0-0.2); BASOPHIL % 1.8 % (0.0-2.0); EOSINOPHIL % 0.9 % (0.0-4.0); HEMATOCRIT 28.9 % (35.0-46.0); HEMO FLAGS DIFF FINAL; LYMPH % 29.2 % (9.0-44.0); LYMPHOCYTE # 1.6 TH/MM3 (1.0-4.8); MEAN CELL VOLUME 87.3 FL (80.0-100.0); MEAN CORPUSCULAR HEMOGLOBIN 28.5 PG (27.0-34.0); MEAN CORPUSCULAR HGB CONC 32.6 % (32.0-36.0); MONO % 7.1 % (0.0-8.0); PLATELET COUNT 337 TH/MM3 (150-450); RED BLOOD COUNT 3.31 MIL/MM3 (4.00-5.30); RED CELL DISTRIBUTION WIDTH 13.4 % (11.6-17.2); WHITE BLOOD COUNT 5.4 TH/MM3 (4.0-11.0)
[2017-06-10 17:51] LABS: CHLORIDE 99 MEQ/L (98-107); POTASSIUM 3.9 MEQ/L (3.5-5.1); SODIUM (NA) 135 MEQ/L (136-145)
[2017-06-10 17:54] LABS: ANION GAP 7 MEQ/L (5-15); BICARBONATE 29.1 MEQ/L (21.0-32.0)
[2017-06-10 17:55] LABS: BLOOD UREA NITROGEN 9 MG/DL (7-18)
[2017-06-10 17:58] LABS: ALT (GPT) 10 U/L (10-53); AST (GOT) 17 U/L (15-37); GLOMERULAR FILTRATION RATE 89 ML/MIN (>89)
[2017-06-10 17:59] LABS: TOTAL BILIRUBIN ADULT 0.1 MG/DL (0.2-1.0)
[2017-06-10 18:00] LABS: ALKALINE PHOSPHATASE 88 U/L (45-117)
--- NOTE | 2017-06-10 18:17 | PD ---
Physical Exam Narrative Patient signed out to me by Dr. Banuelos. Please see his documentation for complete details. 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 Per patient's friend, she weak today and the home health nurse came over and tried to administer her antibiotics but was unable to. She says she was going to come because she was feeling unwell, but then when the PICC line today flushed, she decided she had to come in. Patient reports currently she is feeling fine and has no complaints. She said earlier she was just feeling a little weak. TPA was administered to the PICC line and first attempts at flushing it or unsuccessful. Sign out was to attempt to flush the line again after 90 minutes. Data Data Last Documented VS Vital Signs Date Time Temp Pulse Resp B/P (MAP) Pulse Ox O2 Delivery O2 Flow Rate FiO2 06/10/17 16:10 78 18 99/67 (78) 96 Room Air 06/10/17 12:22 98.8 Orders Orders Cathflo Activase Inj (Cathflo Activase I (06/10/17 14:30) Iv Access Insert/Monitor (06/10/17 17:21) Complete Blood Count With Diff (06/10/17 17:21) Comprehensive Metabolic Panel (06/10/17 17:21) Cefazolin 2 Gm Premix (Ancef 2 Gm Premix (06/10/17 17:30) Labs Laboratory Tests Test 06/10/17 17:30 White Blood Count 5.4 TH/MM3 Red Blood Count 3.31 MIL/MM3 Hemoglobin 9.4 GM/DL Hematocrit 28.9 % Mean Corpuscular Volume 87.3 FL Mean Corpuscular Hemoglobin 28.5 PG Mean Corpuscular Hemoglobin Concent 32.6 % Red Cell Distribution Width 13.4 % Platelet Count 337 TH/MM3 Mean Platelet Volume 7.1 FL Neutrophils (%) (Auto) 61.0 % Lymphocytes (%) (Auto) 29.2 % Monocytes (%) (Auto) 7.1 % Eosinophils (%) (Auto) 0.9 % Basophils (%) (Auto) 1.8 % Neutrophils # (Auto) 3.3 TH/MM3 Lymphocytes # (Auto) 1.6 TH/MM3 Monocytes # (Auto) 0.4 TH/MM3 Eosinophils # (Auto) 0.0 TH/MM3 Basophils # (Auto) 0.1 TH/MM3 CBC Comment DIFF FINAL Differential Comment Blood Urea Nitrogen 9 MG/DL Creatinine 0.67 MG/DL Random Glucose 125 MG/DL Total Protein 7.3 GM/DL Albumin 2.3 GM/DL Calcium Level 8.9 MG/DL Alkaline Phosphatase 88 U/L Aspartate Amino Transf (AST/SGOT) 17 U/L Alanine Aminotransferase (ALT/SGPT) 10 U/L Total Bilirubin 0.1 MG/DL Sodium Level 135 MEQ/L Potassium Level 3.9 MEQ/L Chloride Level 99 MEQ/L Carbon Dioxide Level 29.1 MEQ/L Anion Gap 7 MEQ/L Estimat Glomerular Filtration Rate 89 ML/MIN MDM Supervised Visit with LUPILLO: No Narrative Course After 90 minutes, attempts were made to flush the line, however there were unsuccessful. I contacted vascular access was able to come and fix the PICC line. She was given her dose of cefazolin here in the emergency department. Labs were sent show no acute abnormalities. Hemoglobin is 9.4, which is up from her previous labs about a week ago. Currently she has no complaints and would like to go home. She is advised follow-up with her doctors. Advised to return any time for any worsening symptoms. Diagnosis Primary Impression: clotted PICC line Patient Instructions: General Instructions, Peripherally Inserted Central Catheters and Midline Catheters (ED) Additional Instruction: Follow-up with your doctors. Continue your prescribe antibiotic regimen. Return as needed for any worsening symptoms. Disposition: 01 DISCHARGE HOME Condition: Stable Ruth Mahajan MD Jun 10, 2017 18:17
[2017-06-10 19:00] VITALS: BP 113/69
[2017-06-20] MEDS ORDERED: HYDR-3533 PO (13:04)
[2017-06-21] MEDS ORDERED: TRAM50TA PO (14:20)
== END 2017-06-10 19:14 | disposition home or self-care (01) ==
LOC: PHED 12:20
DX: Z45.2 Encounter for adjustment and management of vascular access device (principal); M46.20 Osteomyelitis of vertebra, site unspecified; E78.00 Pure hypercholesterolemia, unspecified; J44.9 Chronic obstructive pulmonary disease, unspecified; Z85.828 Personal history of other malignant neoplasm of skin; M19.90 Unspecified osteoarthritis, unspecified site; Z87.891 Personal history of nicotine dependence
CPT/HCPCS: 80053; 85025; 96365; 99284; J0690; J2997

== ENCOUNTER 2017-07-14 15:02 | Emergency (ER) | payer BC ==
[~2017-07-14] VITALS: Ht 167.6 cm; Wt 79.0 kg
[~2017-07-14 15:02] MED LIST changes: -ACET1TAB86 PO; -ACET650R RECTAL; -CARI350T25 PO; -CLON.1 PO; -CLON.1T T-DERMAL; -COMMODE 3-IN-11 MIS; -ENOX40P SQ; -EPIN1INJ21 IV PUSH; -EPIN1INJ21 SQ; -GETGO ROLLING W1 MI1; +HYDR-3533 PO; -IPRASOL NEB; -LISI10TA3 PO; -LYRI75CA PO; -MEGE40SU PO; -OXYC1TAB35 PO; -POLY17S PO; -SOLU250I IV PUSH; +TRAM50TA PO; -diphenhydrAMINE INJ IV
[2017-07-14 15:09] VITALS: BP 122/64; PULSE 100; RESP 16; TEMP 98.2; O2SAT 96
--- NOTE | 2017-07-14 15:16 | PD ---
HPI Chief Complaint: Musculoskeletal Complaint Time Seen by Provider: 15:15 Travel History International Travel<30 days: No Contact w/Intl Traveler<30days: No Traveled to known affect area: No History of Present Illness HPI 66 yo F hx HTN, COPD, multiple chronic msk pain related complains, and gastritis c/o feeling generally weak for 3-4 days. No fever. Lightheadedness, near syncope reported. No chest pain or shortness of breath. Pt currently has PICC line for osteomyelitis of spine with cefazolin dosing reported by pt's sister, who provides much of the HPI. Reportedly patient went to [employer] prior to arrival and was found to an irregular pulse then, leading to ER evaluation. PFSH Past Medical History Arthritis: Yes Asthma: Yes Blood Disorders: No Anxiety: Yes Depression: Yes Heart Rhythm Problems: No Cancer: Yes (skin cancers removed) Cardiovascular Problems: Yes High Cholesterol: Yes Chemotherapy: No Chest Pain: No Congestive Heart Failure: No COPD: Yes Cerebrovascular Accident: No Diabetes: No Diminished Hearing: No Endocrine: No Gastrointestinal Disorders: Yes GERD: No Genitourinary: No Hiatal Hernia: No Immune Disorder: No Kidney Stones: Yes Musculoskeletal: Yes (osteomyelitis in spine) Neurologic: Yes Psychiatric: Yes Reproductive: No Respiratory: Yes Immunizations Current: Yes Migraines: No Radiation Therapy: No Renal Failure: No Seizures: No Sleep Apnea: No Thyroid Disease: No Ulcer: No Menopausal: Yes : 0 Past Surgical History Abdominal Surgery: No Cardiac Surgery: No Ear Surgery: No Endocrine Surgery: No Eye Surgery: No Genitourinary Surgery: No Gynecologic Surgery: Yes (Hysterectomy) Hysterectomy: Yes Neurologic Surgery: Yes (Spinal surgery L4-L5 Lami) Oral Surgery: No Thoracic Surgery: No Other Surgery: Yes Social History Alcohol Use: No Tobacco Use: No (quit) Substance Use: Yes (Marijuana 3-4 times a week. Last used a week before admission) Allergies-Medications (Allergen,Severity, Reaction): Coded Allergies: No Known Allergies (Verified Adverse Reaction, Unknown, 07/14/17) Reported Meds & Prescriptions Reported Meds & Active Scripts Active Tramadol (Tramadol HCl) 50 Mg Tab 50 Mg PO Q8H PRN Zanaflex (Tizanidine HCl) 4 Mg Tab 4 Mg PO Q8HR PRN avoid taking within 1-2 hours of pain medication Pantoprazole (Pantoprazole Sodium) 40 Mg Tab 40 Mg PO DAILY 30 Days Pravastatin 10 Mg Tab 10 Mg PO HS 30 Days Reported Piperacillin-Tazobactam Inj 4-0.5 Gm Inj 13.5 Gm IV CONTINUOUS Oxycodone-Acetaminophen 7.5-325 mg Tab 1 Tab PO Q4H PRN Tylenol-Codeine #3 (Acetaminophen-Codeine) 300-30 mg Tab Unknown Dose PO Q4H PRN Zoloft (Sertraline HCl) 50 Mg Tab 50 Mg PO DAILY Review of Systems Except as stated in HPI: all other systems reviewed are Neg General / Constitutional: No: Fever Gastrointestinal: No: Nausea, Abdominal Pain Neurologic: Positive: Weakness, No: Syncope Physical Exam Narrative GENERAL: 66 yo F, NAD, WNWD SKIN: Warm and dry. HEAD: Atraumatic. Normocephalic. EYES: Pupils equal and round. No scleral icterus. No injection or drainage. ENT: No nasal bleeding or discharge. Mucous membranes pink and moist. NECK: Trachea midline. No JVD. CARDIOVASCULAR: Regular rate and rhythm. RESPIRATORY: No accessory muscle use. Clear to auscultation. Breath sounds equal bilaterally. GASTROINTESTINAL: Abdomen soft, non-tender, nondistended. Hepatic and splenic margins not palpable. MUSCULOSKELETAL: Extremities without clubbing, cyanosis, or edema. No obvious deformities. NEUROLOGICAL: Awake and alert. No obvious cranial nerve deficits. Motor grossly within normal limits. Five out of 5 muscle strength in the arms and legs. Normal speech. PSYCHIATRIC: Appropriate mood and affect; insight and judgment normal. Data Data Last Documented VS Vital Signs Date Time Temp Pulse Resp B/P (MAP) Pulse Ox O2 Delivery O2 Flow Rate FiO2 07/14/17 17:02 07/14/17 16:12 80 18 95 Room Air 07/14/17 15:09 98.2 VS reviewed Orders Orders Electrocardiogram (07/14/17 15:25) Complete Blood Count With Diff (07/14/17 15:25) Comprehensive Metabolic Panel (07/14/17 15:25) B-Type Natriuretic Peptide (07/14/17 15:25) Troponin I (07/14/17 15:25) Act Partial Throm Time (Ptt) (07/14/17 15:25) Prothrombin Time / Inr (Pt) (07/14/17 15:25) Urinalysis - C+S If Indicated (07/14/17 15:25) Chest, Single Ap (07/14/17 15:25) Ecg Monitoring (07/14/17 15:25) Iv Access Insert/Monitor (07/14/17 15:25) Oximetry (07/14/17 15:25) Ondansetron Inj (Zofran Inj) (07/14/17 15:30) Sodium Chloride 0.9% Flush (Ns Flush) (07/14/17 15:30) Sodium Chlor 0.9% 1000 Ml Inj (Ns 1000 M (07/14/17 15:25) Potassium Chloride (Kcl) (07/14/17 16:30) Ed Discharge Order (07/14/17 16:51) Labs Laboratory Tests Test 07/14/17 15:55 White Blood Count 4.1 TH/MM3 Red Blood Count 4.93 MIL/MM3 Hemoglobin 13.3 GM/DL Hematocrit 40.5 % Mean Corpuscular Volume 82.3 FL Mean Corpuscular Hemoglobin 26.9 PG Mean Corpuscular Hemoglobin Concent 32.7 % Red Cell Distribution Width 13.1 % Platelet Count 239 TH/MM3 Mean Platelet Volume 7.6 FL Neutrophils (%) (Auto) 53.9 % Lymphocytes (%) (Auto) 25.5 % Monocytes (%) (Auto) 15.4 % Eosinophils (%) (Auto) 4.2 % Basophils (%) (Auto) 1.0 % Neutrophils # (Auto) 2.3 TH/MM3 Lymphocytes # (Auto) 1.0 TH/MM3 Monocytes # (Auto) 0.6 TH/MM3 Eosinophils # (Auto) 0.2 TH/MM3 Basophils # (Auto) 0.0 TH/MM3 CBC Comment DIFF FINAL Differential Comment Prothrombin Time 10.8 SEC Prothromb Time International Ratio 1.0 RATIO Activated Partial Thromboplast Time 25.2 SEC Urine Collection Type CLEAN CATCH Urine Color YELLOW Urine Turbidity SLIGHT Urine pH 6.0 Urine Specific [place] 1.019 Urine Protein 30 mg/dL Urine Glucose (UA) NEG mg/dL Urine Ketones TRACE mg/dL Urine Occult Blood MOD Urine Nitrite NEG Urine Bilirubin NEG Urine Leukocyte Esterase NEG Urine WBC 0-2 /hpf Urine Squamous Epithelial Cells > 8 /hpf Urine Transitional Epithelial Cells 0-5 /hpf Urine Calcium Oxalate Crystals MOD /hpf Urine Amorphous Sediment MOD Urine Hyaline Casts 0-2 /lpf Urine Coarse Granular Casts 0-2 /lpf Microscopic Urinalysis Comment CULT NOT INDICATED Urine Collection Time 1555 Blood Urea Nitrogen 4 MG/DL Creatinine 0.62 MG/DL Random Glucose 111 MG/DL Total Protein 8.5 GM/DL Albumin 3.6 GM/DL Calcium Level 9.2 MG/DL Alkaline Phosphatase 119 U/L Aspartate Amino Transf (AST/SGOT) 16 U/L Alanine Aminotransferase (ALT/SGPT) 15 U/L Total Bilirubin 0.2 MG/DL Sodium Level 138 MEQ/L Potassium Level 3.2 MEQ/L Chloride Level 104 MEQ/L Carbon Dioxide Level 23.2 MEQ/L Anion Gap 11 MEQ/L Estimat Glomerular Filtration Rate 97 ML/MIN Troponin I LESS THAN 0.02 NG/ML B-Type Natriuretic Peptide 42 PG/ML MDM Medical Decision Making Medical Screen Exam Complete: Yes Emergency Medical Condition: Yes Medical Record Reviewed: Yes Differential Diagnosis Anemia, electrolyte imbalance, arrhythmia, dehydration, polypharmacy Narrative Course CBC & BMP Diagram 07/14/17 15:55 Total Protein 8.5 H, Albumin 3.6, Calcium Level 9.2, Alkaline Phosphatase 119 H , Aspartate Amino Transf (AST/SGOT) 16, Alanine Aminotransferase (ALT/SGPT) 15, Total Bilirubin 0.2 Tn < 0.02 BNP 42 UA: no UTI INR 1.0 CXR: NACPD EKG: Sinus rate 82, normal axis, no ischemic injury pattern Overall the presentation is somewhat nonspecific. There could be an element of dehydration due to the ketonuria. At the time of reassessment the patient reiterated some complaints about chronic pain however was receptive to education about the potential harms of long-term opioid exposure. Aggressive oral hydration discussed and the patient was receptive. Return precautions discussed. Diagnosis Primary Impression: Weakness Additional Impressions: Near syncope Ketonuria Hypokalemia Referrals: Primary Care Physician call for appointment Additional Instructions: You have a choice when it comes to health care, and we are glad that you chose [facility]. Hopefully, we have met your expectations on today's visit. You are welcome to return to [facility] at any time, as we are committed to meeting the health care needs of our community. Med/Other Pt SpecificInfo: No Change to Meds Disposition: 01 DISCHARGE HOME Condition: Stable Wolfgang Alvarez MD Jul 14, 2017 15:16
[2017-07-14] MEDS ORDERED: SODIUM CHLOR 0.9% 1000 ML INJ 1,000 ML IV ONE (15:25)
[2017-07-14] MEDS ORDERED: TYLETAB34 PO (15:29)
[2017-07-14] MEDS ORDERED: OXYC1TAB35 PO (15:29)
[2017-07-14] MEDS ORDERED: ONDANSETRON HCL 4 MG/2 ML VIAL IVP ONE (15:30)
[2017-07-14] MEDS ORDERED: SODIUM CHLORIDE 0.9% FLUSH 10 ML FLUSH IVF PRN (15:30)
[2017-07-14 16:04] LABS: AUTOMATED NEUTROPHIL # 2.3 TH/MM3 (1.8-7.7); EOSINOPHIL # 0.2 TH/MM3 (0-0.4); EOSINOPHIL % 4.2 % (0.0-4.0); HEMATOCRIT 40.5 % (35.0-46.0); HEMO FLAGS DIFF FINAL; LYMPH % 25.5 % (9.0-44.0); MEAN CELL VOLUME 82.3 FL (80.0-100.0); MEAN CORPUSCULAR HEMOGLOBIN 26.9 PG (27.0-34.0); MEAN CORPUSCULAR HGB CONC 32.7 % (32.0-36.0); MONO % 15.4 % (0.0-8.0); NEUT % 53.9 % (16.0-70.0); PLATELET COUNT 239 TH/MM3 (150-450); RED BLOOD COUNT 4.93 MIL/MM3 (4.00-5.30); RED CELL DISTRIBUTION WIDTH 13.1 % (11.6-17.2); WHITE BLOOD COUNT 4.1 TH/MM3 (4.0-11.0)
--- NOTE | 2017-07-14 16:04 | RADRPT ---
EXAM DATE/TIME: 07/14/2017 15:35 [facility] COMPARISON: [facility] (AP & LAT), May 10, 2017, 9:38. INDICATIONS : Palpitations. MEDICAL HISTORY : Osteomyelitis. Chronic obstructive pulmonary disease. SURGICAL HISTORY : Hysterectomy. L4-L5 fusion. Picc line. ENCOUNTER: Initial ACUITY: 1 day PAIN SCORE: 0/10 LOCATION: Bilateral chest FINDINGS: A single view of the chest demonstrates the lungs to be symmetrically aerated without evidence of mas s, infiltrate or effusion. The cardiomediastinal contours are unremarkable. Osseous structures are intact. Right PICC line tip overlies the SVC. CONCLUSION: No acute disease. Jaguar Melvin MD on July 14, 2017 at 16:02 Board Certified Radiologist. This report was verified electronically.
[2017-07-14 16:05] VITALS: RESP 18; O2SAT 95
[2017-07-14] MEDS ORDERED: PIPE4INJ IV (16:05)
[2017-07-14 16:08] LABS: BLOOD, URINE MOD (NEG); GLUCOSE,URINE NEG (NEG); KETONE, URINE TRACE mg/dL (NEG); NITRITE,URINE NEG (NEG)
[2017-07-14 16:11] LABS: METHOD OF COLLECTION CLEAN CATCH; URINE COLOR YELLOW (YELLW/STRAW)
[2017-07-14 16:12] VITALS: BP 171/78; PULSE 80; RESP 18; O2SAT 95
[2017-07-14 16:12] LABS: CHLORIDE 104 MEQ/L (98-107); POTASSIUM 3.2 MEQ/L (3.5-5.1); SODIUM (NA) 138 MEQ/L (136-145)
[2017-07-14 16:15] LABS: ANION GAP 11 MEQ/L (5-15); BICARBONATE 23.2 MEQ/L (21.0-32.0); BLOOD UREA NITROGEN 4 MG/DL (7-18)
[2017-07-14 16:18] LABS: ALT (GPT) 15 U/L (10-53); AST (GOT) 16 U/L (15-37)
[2017-07-14 16:19] LABS: GLOMERULAR FILTRATION RATE 97 ML/MIN (>89); WBC, URINE 0-2 /hpf (0-5)
[2017-07-14 16:20] LABS: COMMENT (UR) CULT NOT INDICATED; COMMENT2 (UR) MUCOUS PRESENT; CULTURE IF INDICATED CULT NOT INDICATED; HYALINE CAST, URINE 0-2 /lpf (RARE); SQUAMOUS EPITHELIAL CELL URINE > 8 /hpf (0-5); TOTAL BILIRUBIN ADULT 0.2 MG/DL (0.2-1.0); TRANSITIONAL EPI CELLS, URINE 0-5 /hpf
[2017-07-14 16:21] LABS: ALKALINE PHOSPHATASE 119 U/L (45-117); CALCIUM OXALATE CRYSTALS,URINE MOD /hpf
[2017-07-14] MEDS ORDERED: POTASSIUM CHLORIDE 20 MEQ CONTROLLED RELEASE TAB PO ONE (16:30)
[2017-07-14 16:37] LABS: APTT (PATIENT) 25.2 SEC (24.3-30.1); PROTHROMBIN TIME - PATIENT 10.8 SEC (9.8-11.6)
--- NOTE | 2017-07-15 12:38 | EKG ---
Date Performed: 07/14/2017 Time Performed: 15:58:03 PTAGE: 66 years EKG: Sinus rhythm WITH SHORT CO INTERVAL BORDERLINE ECG PREVIOUS TRACING : 05/09/2017 23.42 Compared to prior tracing no significant change DOCTOR: Edgard Richmond Interpretating Date/Time 07/15/2017 12:34:18
== END 2017-07-14 17:03 | disposition home or self-care (01) ==
LOC: PHED 15:02
DX: R53.1 Weakness (principal); R55 Syncope and collapse; E87.6 Hypokalemia; E78.00 Pure hypercholesterolemia, unspecified; J44.9 Chronic obstructive pulmonary disease, unspecified; I10 Essential (primary) hypertension; Z87.891 Personal history of nicotine dependence
CPT/HCPCS: 71010; 80053; 81001; 83880; 84484; 85025; 85610; 85730; 93005; 96361; 96374; 99285; J2405; J7030